=== PATIENT | male | born 1955 | race Two or more races ===

== ENCOUNTER 2020-03-13 13:28 | Emergency (ER) | payer MEDICAID ==
[~2020-03-13] VITALS: Ht 157.5 cm; Wt 50.0 kg
[~2020-03-13 13:28] MED LIST: ACET325T53 PO; AZIT500T9 PO; CALC-157 PO; CHOL100010 PO; DIAZ1KIT2 RC; DOCU50CA4 PO; INSU100I25 SQ; LAMO200T10 PO; LAMO25TA62 PO; LANTUS SUBCUT; LEVE750T6 PO; MAGN-64 PO; MAGN800O PO; MIRT15TA8 PO; MULT-1085 PO; ONDA4TAB12 PO; PRAV20TA4 PO; SITA100T15 PO; SODI650T29 PO; SYN0.025T PO; TOP100T PO; TRAZ-251 PO
[2020-03-13] MEDS ORDERED: normal saline 1000ml 1,000 ML IV ONE (13:45)
[2020-03-13 14:06] LABS: BASOPHILS % (AUTO) 0.7 % (0-1); EOSINOPHILS # (AUTO) 0.2 X10'3 (0-0.9); HEMATOCRIT 37.4 % (42.0-52.0); HEMOGLOBIN 13.1 g/dl (14.0-17.9); LYMPHOCYTES # (AUTO) 0.9 X10'3 (1.1-4.8); LYMPHOCYTES % (AUTO) 23.3 % (21-51); MEAN CORPUSCULAR HEMOGLOBIN 32.8 PG (27.0-31.0); MEAN CORPUSCULAR VOLUME 93.7 FL (78-98); MONOCYTES # (AUTO) 0.3 X10'3 (0-0.9); MONOCYTES % (AUTO) 6.5 % (2-12); NEUTROPHILS # (AUTO) 2.6 X10'3 (1.8-7.7); NEUTROPHILS % (AUTO) 64.5 % (42-75); PLATELET COUNT 161 X10'3 (140-440); RED BLOOD COUNT 3.99 X10'6 (4.70-6.10); RED CELL DISTRIBUTION WIDTH 13.5 % (11.5-14.5)
[2020-03-13 14:21] LABS: ALANINE AMINOTRANSFERASE 21 U/L (12-78); ALBUMIN 3.6 G/DL (3.4-5.0); ALBUMIN/GLOBULIN RATIO 1.2 (1.1-1.5); ALKALINE PHOSPHATASE 143 IU/L (46-116); ANION GAP 15 (8-16); ASPARTATE AMINO TRANSFERASE 14 U/L (10-37); BILIRUBIN,TOTAL 0.4 MG/DL (0.1-1.0); BLOOD UREA NITROGEN 40 MG/DL (7-18); BUN/CREATININE RATIO 20.7 (5.4-32.0); CALCIUM 8.4 MG/DL (8.5-10.1); CHLORIDE 103 MMOL/L (99-107); CREATININE 1.93 MG/DL (0.60-1.10); GLUCOSE 303 MG/DL (70-104); POTASSIUM 3.5 MMOL/L (3.5-5.1); SODIUM 136 MMOL/L (135-145); TOTAL CARBON DIOXIDE 18.1 MMOL/L (24-32); TOTAL PROTEIN 6.7 G/DL (6.4-8.2); eGFR 35 ML/MIN
[2020-03-13 14:54] LABS: CLARITY,URINE CLEAR (Clear); COLOR,URINE YELLOW (Yellow); GLUCOSE, URINE >=1000 mg/dl (Neg); KETONES,URINE NEGATIVE (Neg); LEUKOCYTE ESTERASE ,URINE TRACE (Neg); NITRITES, URINE NEGATIVE (Neg); OCCULT BLOOD,URINE TRACE-LYSED (Neg); PROTEIN,URINE NEGATIVE (Neg); UA COLLECTION TYPE URINAL; UROBILINOGEN,URINE 0.2 E.U/dL (0.2-1.0)
[2020-03-13 14:58] LABS: RBC,URINE 0-2 /HPF (0-2); WBC,URINE 0-4 /HPF (0-4)
[2020-03-13 14:59] LABS: BACTERIA,URINE NONE SEEN /HPF (Neg); MUCUS STRANDS FEW /LPF (Neg); SQUAMOUS EPITHELIAL CELL,UR NONE SEEN /LPF (FEW)
[2020-03-13 15:19] VITALS: BP 141/62
== END 2020-03-13 15:13 | disposition home or self-care (01) ==
LOC: ER 13:29
DX: E11.65 Type 2 diabetes mellitus with hyperglycemia (principal); E11.22 Type 2 diabetes mellitus with diabetic chronic kidney disease; N18.9 Chronic kidney disease, unspecified; E78.00 Pure hypercholesterolemia, unspecified; I12.9 Hypertensive chronic kidney disease with stage 1 through stage 4 chronic kidney disease, or unspecified chronic kidney disease; G89.29 Other chronic pain; F41.9 Anxiety disorder, unspecified; Z86.69 Personal history of other diseases of the nervous system and sense organs; Z98.890 Other specified postprocedural states; Z56.0 Unemployment, unspecified; Z88.5 Allergy status to narcotic agent; Z79.2 Long term (current) use of antibiotics; Z79.4 Long term (current) use of insulin; Z79.899 Other long term (current) drug therapy
CPT/HCPCS: 36415; 80053; 81001; 82948; 85025; 87088; 96360; 99284; J7030

== ENCOUNTER 2020-06-13 11:52 | Emergency (ER) | payer MEDICAID ==
[~2020-06-13] VITALS: Ht 157.5 cm; Wt 113.0 kg
[2020-06-13] MEDS ORDERED: normal saline 1000ML IV soln IVB ONE (12:05)
[2020-06-13 13:20] LABS: BASOPHILS % (AUTO) 0.3 % (0-1); EOSINOPHILS % (AUTO) 0.5 % (0-6); HEMATOCRIT 40.4 % (42.0-52.0); HEMOGLOBIN 13.6 g/dl (14.0-17.9); LYMPHOCYTES # (AUTO) 0.5 X10'3 (1.1-4.8); LYMPHOCYTES % (AUTO) 16.6 % (21-51); MEAN CORPUSCULAR HEMOGLOBIN 31.9 PG (27.0-31.0); MEAN CORPUSCULAR HGB CONC 33.6 g/dL (33.0-36.5); MEAN CORPUSCULAR VOLUME 94.9 FL (78-98); MEAN PLATELET VOLUME 8.3 FL (7.4-10.4); MONOCYTES # (AUTO) 0.5 X10'3 (0-0.9); MONOCYTES % (AUTO) 14.8 % (2-12); NEUTROPHILS # (AUTO) 2.1 X10'3 (1.8-7.7); NEUTROPHILS % (AUTO) 67.8 % (42-75); PLATELET COUNT 138 X10'3 (140-440); RED BLOOD COUNT 4.25 X10'6 (4.70-6.10); WHITE BLOOD COUNT 3.1 X10'3 (4.5-11.0)
[2020-06-13 13:30] VITALS: BP 155/65
[2020-06-13 13:33] LABS: ALANINE AMINOTRANSFERASE 27 U/L (12-78); ALBUMIN 4.3 G/DL (3.4-5.0); ALBUMIN/GLOBULIN RATIO 1.1 (1.1-1.5); ALKALINE PHOSPHATASE 115 IU/L (46-116); ANION GAP 13 (8-16); ASPARTATE AMINO TRANSFERASE 23 U/L (10-37); BILIRUBIN,TOTAL 0.4 MG/DL (0.1-1.0); BLOOD UREA NITROGEN 29 MG/DL (7-18); CALCIUM 9.4 MG/DL (8.5-10.1); CHLORIDE 101 MMOL/L (99-107); CREATININE 1.93 MG/DL (0.60-1.10); GLUCOSE 123 MG/DL (70-104); POTASSIUM 3.6 MMOL/L (3.5-5.1); SODIUM 133 MMOL/L (135-145); TOTAL CARBON DIOXIDE 19.4 MMOL/L (24-32); TOTAL PROTEIN 8.3 G/DL (6.4-8.2); eGFR 35 ML/MIN
[2020-06-13 13:45] LABS: C-REACTIVE PROTEIN 2.44 MG/DL (0.0-0.5); LACTATE DEHYDROGENASE 142 U/L (85-227)
[2020-06-13 13:46] LABS: FERRITIN 197 NG/ML (26-388)
== END 2020-06-13 15:23 | disposition home or self-care (01) ==
LOC: ER 11:53
DX: U07.1 COVID-19 (principal); R19.7 Diarrhea, unspecified; E78.00 Pure hypercholesterolemia, unspecified; I10 Essential (primary) hypertension; E11.9 Type 2 diabetes mellitus without complications; F41.9 Anxiety disorder, unspecified; G89.29 Other chronic pain; Z56.0 Unemployment, unspecified; Z88.5 Allergy status to narcotic agent; Z79.899 Other long term (current) drug therapy; Z79.84 Long term (current) use of oral hypoglycemic drugs
CPT/HCPCS: 36415; 71045; 80053; 82728; 83605; 83615; 83735; 84145; 85025; 85384; 86140; 87040; 87077; 87186; 87635; 93005; 99285; C9803; J7030; 96360

== ENCOUNTER 2020-06-16 09:15 | Emergency (ER) | payer MEDICAID ==
[~2020-06-16] VITALS: Ht 162.6 cm; Wt 50.0 kg
[2020-06-16 10:42] LABS: BASOPHILS % (AUTO) 0.1 % (0-1); EOSINOPHILS # (AUTO) 0.1 X10'3 (0-0.9); EOSINOPHILS % (AUTO) 1.2 % (0-6); HEMATOCRIT 36.2 % (42.0-52.0); HEMOGLOBIN 12.2 g/dl (14.0-17.9); LYMPHOCYTES # (AUTO) 0.4 X10'3 (1.1-4.8); LYMPHOCYTES % (AUTO) 9.9 % (21-51); MEAN CORPUSCULAR HGB CONC 33.8 g/dL (33.0-36.5); MEAN CORPUSCULAR VOLUME 94.6 FL (78-98); MONOCYTES # (AUTO) 0.5 X10'3 (0-0.9); MONOCYTES % (AUTO) 10.1 % (2-12); NEUTROPHILS # (AUTO) 3.5 X10'3 (1.8-7.7); NEUTROPHILS % (AUTO) 78.7 % (42-75); PLATELET COUNT 136 X10'3 (140-440); RED BLOOD COUNT 3.83 X10'6 (4.70-6.10); RED CELL DISTRIBUTION WIDTH 14.1 % (11.5-14.5); WHITE BLOOD COUNT 4.5 X10'3 (4.5-11.0)
[2020-06-16 10:59] LABS: ALANINE AMINOTRANSFERASE 25 U/L (12-78); ALBUMIN 3.3 G/DL (3.4-5.0); ALBUMIN/GLOBULIN RATIO 0.9 (1.1-1.5); ALKALINE PHOSPHATASE 83 IU/L (46-116); ANION GAP 11 (8-16); ASPARTATE AMINO TRANSFERASE 22 U/L (10-37); BILIRUBIN,TOTAL 0.3 MG/DL (0.1-1.0); BLOOD UREA NITROGEN 34 MG/DL (7-18); BUN/CREATININE RATIO 17.7 (5.4-32.0); CALCIUM 8.9 MG/DL (8.5-10.1); CHLORIDE 111 MMOL/L (99-107); CREATININE 1.92 MG/DL (0.60-1.10); GLUCOSE 189 MG/DL (70-104); SODIUM 142 MMOL/L (135-145); TOTAL CARBON DIOXIDE 19.8 MMOL/L (24-32); eGFR 36 ML/MIN
[2020-06-16 11:12] LABS: C-REACTIVE PROTEIN 5.17 MG/DL (0.0-0.5); FERRITIN 229 NG/ML (26-388); LACTATE DEHYDROGENASE 135 U/L (85-227); MAGNESIUM 1.8 MG/DL (1.5-2.4)
[2020-06-16 12:14] VITALS: BP 130/70
== END 2020-06-16 13:42 | disposition home or self-care (01) ==
LOC: ER 09:15
DX: U07.1 COVID-19 (principal); R19.7 Diarrhea, unspecified; E78.00 Pure hypercholesterolemia, unspecified; I10 Essential (primary) hypertension; E11.9 Type 2 diabetes mellitus without complications; G89.29 Other chronic pain; F41.9 Anxiety disorder, unspecified; Z86.69 Personal history of other diseases of the nervous system and sense organs; Z56.0 Unemployment, unspecified; Z98.890 Other specified postprocedural states; Z88.5 Allergy status to narcotic agent; Z79.4 Long term (current) use of insulin; Z79.899 Other long term (current) drug therapy
CPT/HCPCS: 36415; 71045; 76937; 80053; 82728; 83605; 83615; 83735; 84145; 85025; 85384; 86140; 87040; 93005; 99285

== ENCOUNTER 2021-01-31 11:15 | Emergency (ER) | payer MEDICAID ==
[~2021-01-31] VITALS: Ht 162.6 cm; Wt 50.0 kg
[~2021-01-31 11:15] MED LIST changes: +MIRT-87 PO; -MIRT15TA8 PO
[2021-01-31 11:27] VITALS: BP 136/82
[2021-01-31] MEDS ORDERED: LIDOcaine 1% W/epiNEPHrine 1:100,000 20ml vial SQ ONE (11:30)
== END 2021-01-31 16:13 | disposition home or self-care (01) ==
LOC: ER 11:16
DX: S01.81XA Laceration without foreign body of other part of head, initial encounter (principal); E78.00 Pure hypercholesterolemia, unspecified; I10 Essential (primary) hypertension; E11.9 Type 2 diabetes mellitus without complications; G89.29 Other chronic pain; F41.9 Anxiety disorder, unspecified; Z86.69 Personal history of other diseases of the nervous system and sense organs; Z98.890 Other specified postprocedural states; Z56.0 Unemployment, unspecified; Z88.5 Allergy status to narcotic agent; Z79.2 Long term (current) use of antibiotics; Z79.899 Other long term (current) drug therapy; W19.XXXA Unspecified fall, initial encounter; Y93.89 Activity, other specified; Y92.89 Other specified places as the place of occurrence of the external cause; Y99.8 Other external cause status
CPT/HCPCS: 12011; 70450; 82948; 99284

== ENCOUNTER 2021-09-01 11:21 | Emergency (ER) | payer MEDICAID ==
[~2021-09-01] VITALS: Ht 157.5 cm; Wt 46.8 kg
[2021-09-01 14:26] VITALS: BP 118/68
== END 2021-09-01 14:28 | disposition home or self-care (01) ==
LOC: ER 11:21
DX: S09.90XA Unspecified injury of head, initial encounter (principal); S00.01XA Abrasion of scalp, initial encounter; R56.9 Unspecified convulsions; E78.00 Pure hypercholesterolemia, unspecified; I10 Essential (primary) hypertension; E11.9 Type 2 diabetes mellitus without complications; G89.29 Other chronic pain; F41.9 Anxiety disorder, unspecified; Z86.69 Personal history of other diseases of the nervous system and sense organs; Z98.890 Other specified postprocedural states; Z56.0 Unemployment, unspecified; Z88.5 Allergy status to narcotic agent; Z79.2 Long term (current) use of antibiotics; Z79.4 Long term (current) use of insulin; Z79.899 Other long term (current) drug therapy; X58.XXXA Exposure to other specified factors, initial encounter; Y93.89 Activity, other specified; Y92.89 Other specified places as the place of occurrence of the external cause; Y99.8 Other external cause status
CPT/HCPCS: 70450; 99284

== ENCOUNTER 2022-01-13 09:28 | Emergency (ER) | payer MEDICAID ==
[~2022-01-13] VITALS: Ht 157.5 cm; Wt 51.4 kg
[2022-01-13 10:16] LABS: BASOPHILS % (AUTO) 0.3 % (0-1); EOSINOPHILS # (AUTO) 0.1 X10'3 (0-0.9); EOSINOPHILS % (AUTO) 0.9 % (0-6); LYMPHOCYTES # (AUTO) 0.6 X10'3 (1.1-4.8); LYMPHOCYTES % (AUTO) 9.6 % (21-51); MEAN CORPUSCULAR HEMOGLOBIN 32.1 PG (27.0-31.0); MEAN CORPUSCULAR HGB CONC 33.4 g/dL (33.0-36.5); MEAN CORPUSCULAR VOLUME 95.9 FL (78-98); MEAN PLATELET VOLUME 8.1 FL (7.4-10.4); MONOCYTES # (AUTO) 0.3 X10'3 (0-0.9); MONOCYTES % (AUTO) 4.8 % (2-12); NEUTROPHILS # (AUTO) 4.9 X10'3 (1.8-7.7); NEUTROPHILS % (AUTO) 84.4 % (42-75); PLATELET COUNT 164 X10'3 (140-440); RED BLOOD COUNT 4.38 X10'6 (4.70-6.10); RED CELL DISTRIBUTION WIDTH 14.8 % (11.5-14.5); WHITE BLOOD COUNT 5.8 X10'3 (4.5-11.0)
[2022-01-13 10:32] LABS: ALANINE AMINOTRANSFERASE 23 U/L (12-78); ALBUMIN 4.4 G/DL (3.4-5.0); ALBUMIN/GLOBULIN RATIO 1.3 (1.1-1.5); ALKALINE PHOSPHATASE 116 IU/L (46-116); ANION GAP 11 (8-16); ASPARTATE AMINO TRANSFERASE 22 U/L (10-37); BILIRUBIN,TOTAL 0.4 MG/DL (0.1-1.0); BLOOD UREA NITROGEN 41 MG/DL (7-18); BUN/CREATININE RATIO 21.4 (5.4-32.0); CALCIUM 9.1 MG/DL (8.5-10.1); CHLORIDE 107 MMOL/L (99-107); CREATININE 1.92 MG/DL (0.60-1.10); GLUCOSE 164 MG/DL (70-104); LIPASE 615 U/L (73-393); SODIUM 141 MMOL/L (135-145); TOTAL CARBON DIOXIDE 23.4 MMOL/L (24-32); TOTAL PROTEIN 7.9 G/DL (6.4-8.2); eGFR 35 ML/MIN
[2022-01-13] MEDS ORDERED: ondansetron/PF 4mg/2ml inj IV ONE (11:40)
[2022-01-13] MEDS ORDERED: ringers solution, lacted 1,000 ML IV ONE (11:45)
[2022-01-13 12:57] LABS: CLARITY,URINE CLEAR (Clear); COLOR,URINE YELLOW (Yellow); GLUCOSE, URINE NEGATIVE (Neg); KETONES,URINE NEGATIVE (Neg); LEUKOCYTE ESTERASE ,URINE NEGATIVE (Neg); NITRITES, URINE NEGATIVE (Neg); OCCULT BLOOD,URINE NEGATIVE (Neg); PROTEIN,URINE NEGATIVE (Neg); UROBILINOGEN,URINE 0.2 E.U/dL (0.2-1.0)
[2022-01-13 13:00] LABS: UA COLLECTION TYPE URINAL
[2022-01-13 14:19] VITALS: BP 125/59
== END 2022-01-13 14:21 | disposition home or self-care (01) ==
LOC: ER 09:29
DX: K85.90 Acute pancreatitis without necrosis or infection, unspecified (principal); E78.00 Pure hypercholesterolemia, unspecified; I10 Essential (primary) hypertension; E11.9 Type 2 diabetes mellitus without complications; E03.9 Hypothyroidism, unspecified; G89.29 Other chronic pain; F41.9 Anxiety disorder, unspecified; Z56.0 Unemployment, unspecified; Z86.69 Personal history of other diseases of the nervous system and sense organs; Z88.5 Allergy status to narcotic agent; Z79.899 Other long term (current) drug therapy; Z79.4 Long term (current) use of insulin
CPT/HCPCS: 36415; 80053; 81003; 82948; 83605; 83690; 85025; 96361; 96374; 99283; J2405; J7120

== ENCOUNTER 2022-04-28 18:27 | Emergency (ER) | payer MEDICAID ==
[~2022-04-28] VITALS: Ht 162.6 cm; Wt 42.8 kg
[2022-04-28 18:54] VITALS: BP 137/65
[2022-04-28 19:31] LABS: EOSINOPHILS # (AUTO) 0.2 X10'3 (0-0.9); NEUTROPHILS # (AUTO) 5.2 X10'3 (1.8-7.7)
[2022-04-28 19:33] LABS: BASOPHILS % (AUTO) 0.4 % (0-1); EOSINOPHILS % (AUTO) 2.4 % (0-6); HEMOGLOBIN 15.1 g/dl (14.0-17.9); LYMPHOCYTES # (AUTO) 0.6 X10'3 (1.1-4.8); LYMPHOCYTES % (AUTO) 8.5 % (21-51); MEAN CORPUSCULAR HGB CONC 33.5 g/dL (33.0-36.5); MEAN CORPUSCULAR VOLUME 95.6 FL (78-98); MEAN PLATELET VOLUME 8.8 FL (7.4-10.4); MONOCYTES # (AUTO) 0.6 X10'3 (0-0.9); MONOCYTES % (AUTO) 8.9 % (2-12); NEUTROPHILS % (AUTO) 79.8 % (42-75); PLATELET COUNT 143 X10'3 (140-440); RED BLOOD COUNT 4.71 X10'6 (4.70-6.10); RED CELL DISTRIBUTION WIDTH 14.2 % (11.5-14.5); WHITE BLOOD COUNT 6.5 X10'3 (4.5-11.0)
[2022-04-28 19:46] LABS: ALANINE AMINOTRANSFERASE 33 U/L (12-78); ALBUMIN 4.1 G/DL (3.4-5.0); ALBUMIN/GLOBULIN RATIO 1.1 (1.1-1.5); ALKALINE PHOSPHATASE 143 IU/L (46-116); ANION GAP 10 (8-16); ASPARTATE AMINO TRANSFERASE 20 U/L (10-37); BILIRUBIN,TOTAL 0.6 MG/DL (0.1-1.0); BLOOD UREA NITROGEN 59 MG/DL (7-18); CALCIUM 9.5 MG/DL (8.5-10.1); CHLORIDE 99 MMOL/L (99-107); CREATININE 1.79 MG/DL (0.60-1.10); GLUCOSE 276 MG/DL (70-104); LIPASE 409 U/L (73-393); POTASSIUM 4.2 MMOL/L (3.5-5.1); SODIUM 131 MMOL/L (135-145); TOTAL CARBON DIOXIDE 22.2 MMOL/L (24-32); TOTAL PROTEIN 7.7 G/DL (6.4-8.2); eGFR 38 ML/MIN
[2022-04-28] MEDS ORDERED: normal saline 1000ML IV soln IVB ONE (23:35)
[2022-04-28 23:45] LABS: MAGNESIUM 2.1 MG/DL (1.5-2.4)
--- NOTE | 2022-04-29 00:32 | NUR ---
iv dc'd pt being discharged dressing applied
== END 2022-04-29 00:33 | disposition home or self-care (01) ==
LOC: ER 18:28
DX: E86.0 Dehydration (principal); E11.22 Type 2 diabetes mellitus with diabetic chronic kidney disease; I12.9 Hypertensive chronic kidney disease with stage 1 through stage 4 chronic kidney disease, or unspecified chronic kidney disease; E03.9 Hypothyroidism, unspecified; G89.29 Other chronic pain; F41.9 Anxiety disorder, unspecified; Z56.0 Unemployment, unspecified; Z88.5 Allergy status to narcotic agent; Z79.899 Other long term (current) drug therapy; Z79.1 Long term (current) use of non-steroidal anti-inflammatories (NSAID); Z79.2 Long term (current) use of antibiotics
CPT/HCPCS: 36415; 80053; 83690; 83735; 85025; 96360; 99283; J7030

== ENCOUNTER 2022-08-17 11:02 | Emergency (ER) | payer MEDICAID ==
[~2022-08-17] VITALS: Ht 157.5 cm; Wt 50.0 kg
[2022-08-17 11:18] VITALS: BP 146/70
[2022-08-17 13:23] LABS: CLARITY,URINE CLEAR (Clear); COLOR,URINE YELLOW (Yellow); GLUCOSE, URINE >=1000 mg/dl (Neg); KETONES,URINE NEGATIVE (Neg); LEUKOCYTE ESTERASE ,URINE NEGATIVE (Neg); NITRITES, URINE NEGATIVE (Neg); OCCULT BLOOD,URINE NEGATIVE (Neg); PROTEIN,URINE TRACE mg/dl (Neg); UROBILINOGEN,URINE 0.2 E.U/dL (0.2-1.0)
[2022-08-17 13:37] LABS: UA COLLECTION TYPE NON-SPECIFIED
[2022-08-17 13:40] LABS: BACTERIA,URINE NONE SEEN /HPF (Neg); MUCUS STRANDS NONE SEEN /LPF (Neg); SQUAMOUS EPITHELIAL CELL,UR NONE SEEN /LPF (FEW); WBC,URINE 0-4 /HPF (0-4)
[2022-08-17 13:41] LABS: BASOPHILS % (AUTO) 0.5 % (0-1); EOSINOPHILS # (AUTO) 0.1 X10'3 (0-0.9); EOSINOPHILS % (AUTO) 2.3 % (0-6); HEMATOCRIT 41.5 % (42.0-52.0); HEMOGLOBIN 13.8 g/dl (14.0-17.9); LYMPHOCYTES # (AUTO) 0.6 X10'3 (1.1-4.8); LYMPHOCYTES % (AUTO) 21.3 % (21-51); MEAN CORPUSCULAR HEMOGLOBIN 31.6 PG (27.0-31.0); MEAN CORPUSCULAR HGB CONC 33.3 g/dL (33.0-36.5); MEAN CORPUSCULAR VOLUME 94.9 FL (78-98); MEAN PLATELET VOLUME 8.4 FL (7.4-10.4); MONOCYTES # (AUTO) 0.2 X10'3 (0-0.9); MONOCYTES % (AUTO) 6.9 % (2-12); PLATELET COUNT 137 X10'3 (140-440); RED BLOOD COUNT 4.37 X10'6 (4.70-6.10); RED CELL DISTRIBUTION WIDTH 14.9 % (11.5-14.5); WHITE BLOOD COUNT 2.9 X10'3 (4.5-11.0)
[2022-08-17 13:41] LABS: RBC,URINE 0-2 /HPF (0-2)
[2022-08-17 14:05] LABS: ALANINE AMINOTRANSFERASE 27 U/L (12-78); ALBUMIN 4.1 G/DL (3.4-5.0); ALBUMIN/GLOBULIN RATIO 1.4 (1.1-1.5); ALKALINE PHOSPHATASE 91 IU/L (46-116); ANION GAP 10 (8-16); ASPARTATE AMINO TRANSFERASE 24 U/L (10-37); BILIRUBIN,TOTAL 0.5 MG/DL (0.1-1.0); BLOOD UREA NITROGEN 43 MG/DL (7-18); BUN/CREATININE RATIO 24.6 (5.4-32.0); CALCIUM 9.2 MG/DL (8.5-10.1); CHLORIDE 106 MMOL/L (99-107); CREATININE 1.75 MG/DL (0.60-1.10); GLUCOSE 248 MG/DL (70-104); LIPASE 183 U/L (73-393); POTASSIUM 4.1 MMOL/L (3.5-5.1); SODIUM 137 MMOL/L (135-145); TOTAL CARBON DIOXIDE 20.8 MMOL/L (24-32); eGFR 39 ML/MIN
[2022-08-17 14:09] LABS: PLATELET ESTIMATE DECREASED; TOTAL CELLS COUNTED 100
== END 2022-08-17 14:39 | disposition home or self-care (01) ==
LOC: ER 11:02
DX: E16.2 Hypoglycemia, unspecified (principal); R62.50 Unspecified lack of expected normal physiological development in childhood; I12.9 Hypertensive chronic kidney disease with stage 1 through stage 4 chronic kidney disease, or unspecified chronic kidney disease; E11.22 Type 2 diabetes mellitus with diabetic chronic kidney disease; N18.9 Chronic kidney disease, unspecified; G89.29 Other chronic pain; F41.9 Anxiety disorder, unspecified; E78.00 Pure hypercholesterolemia, unspecified; E03.9 Hypothyroidism, unspecified; Z98.890 Other specified postprocedural states; Z56.0 Unemployment, unspecified; Z88.5 Allergy status to narcotic agent; Z79.4 Long term (current) use of insulin; Z79.899 Other long term (current) drug therapy
CPT/HCPCS: 80053; 81001; 82948; 83690; 85007; 85025; 99283

== ENCOUNTER 2022-08-18 08:54 | Emergency (ER) | payer MEDICAID ==
[~2022-08-18] VITALS: Ht 157.5 cm; Wt 51.0 kg
[2022-08-18 10:27] LABS: CLARITY,URINE CLEAR (Clear); COLOR,URINE YELLOW (Yellow); GLUCOSE, URINE 500 mg/dl (Neg); KETONES,URINE NEGATIVE (Neg); LEUKOCYTE ESTERASE ,URINE NEGATIVE (Neg); NITRITES, URINE NEGATIVE (Neg); OCCULT BLOOD,URINE NEGATIVE (Neg); PROTEIN,URINE NEGATIVE (Neg); UROBILINOGEN,URINE 0.2 E.U/dL (0.2-1.0)
[2022-08-18 10:41] LABS: UA COLLECTION TYPE VOIDED
[2022-08-18 11:25] LABS: BASOPHILS % (AUTO) 0.7 % (0-1); EOSINOPHILS # (AUTO) 0.1 X10'3 (0-0.9); EOSINOPHILS % (AUTO) 4.7 % (0-6); HEMATOCRIT 40.4 % (42.0-52.0); HEMOGLOBIN 13.6 g/dl (14.0-17.9); MEAN CORPUSCULAR HEMOGLOBIN 31.8 PG (27.0-31.0); MEAN CORPUSCULAR HGB CONC 33.6 g/dL (33.0-36.5); MEAN CORPUSCULAR VOLUME 94.5 FL (78-98); MEAN PLATELET VOLUME 8.3 FL (7.4-10.4); MONOCYTES # (AUTO) 0.3 X10'3 (0-0.9); MONOCYTES % (AUTO) 10.6 % (2-12); NEUTROPHILS # (AUTO) 1.5 X10'3 (1.8-7.7); PLATELET COUNT 127 X10'3 (140-440); RED BLOOD COUNT 4.27 X10'6 (4.70-6.10); RED CELL DISTRIBUTION WIDTH 14.8 % (11.5-14.5); WHITE BLOOD COUNT 2.9 X10'3 (4.5-11.0)
[2022-08-18 11:40] LABS: ALANINE AMINOTRANSFERASE 27 U/L (12-78); ALBUMIN 3.9 G/DL (3.4-5.0); ALBUMIN/GLOBULIN RATIO 1.3 (1.1-1.5); ALKALINE PHOSPHATASE 79 IU/L (46-116); ANION GAP 9 (8-16); ASPARTATE AMINO TRANSFERASE 28 U/L (10-37); BILIRUBIN,TOTAL 0.5 MG/DL (0.1-1.0); BLOOD UREA NITROGEN 43 MG/DL (7-18); BUN/CREATININE RATIO 23.6 (5.4-32.0); CALCIUM 9.2 MG/DL (8.5-10.1); CHLORIDE 106 MMOL/L (99-107); CREATININE 1.82 MG/DL (0.60-1.10); GLUCOSE 100 MG/DL (70-104); POTASSIUM 3.7 MMOL/L (3.5-5.1); SODIUM 138 MMOL/L (135-145); TOTAL CARBON DIOXIDE 23.5 MMOL/L (24-32); TOTAL PROTEIN 6.8 G/DL (6.4-8.2); eGFR 38 ML/MIN
[2022-08-18 13:34] LABS: PLATELET ESTIMATE DECREASED; TOTAL CELLS COUNTED 100
[2022-08-18 13:36] VITALS: BP 108/58
== END 2022-08-18 14:17 | disposition home or self-care (01) ==
LOC: ER 08:55
DX: R00.1 Bradycardia, unspecified (principal); G89.29 Other chronic pain; E78.00 Pure hypercholesterolemia, unspecified; I10 Essential (primary) hypertension; E11.9 Type 2 diabetes mellitus without complications; E03.9 Hypothyroidism, unspecified; Z88.5 Allergy status to narcotic agent; Z56.0 Unemployment, unspecified
CPT/HCPCS: 80053; 81003; 85007; 85025; 93005; 99284

== ENCOUNTER 2023-01-23 11:25 | Emergency (ER) | payer MEDICAID ==
[~2023-01-23] VITALS: Ht 157.5 cm; Wt 43.1 kg
[~2023-01-23 11:25] MED LIST changes: -INSU100I25 SQ; +INSU100I27 SQ
[2023-01-23 12:12] LABS: BASOPHILS % (AUTO) 0.7 % (0-1); EOSINOPHILS # (AUTO) 0.1 X10'3 (0-0.9); EOSINOPHILS % (AUTO) 1.8 % (0-6); HEMATOCRIT 41.9 % (42.0-52.0); HEMOGLOBIN 14.3 g/dl (14.0-17.9); LYMPHOCYTES # (AUTO) 1.1 X10'3 (1.1-4.8); LYMPHOCYTES % (AUTO) 28.3 % (21-51); MEAN CORPUSCULAR HEMOGLOBIN 33.2 PG (27.0-31.0); MEAN CORPUSCULAR HGB CONC 34.3 g/dL (33.0-36.5); MEAN CORPUSCULAR VOLUME 96.8 FL (78-98); MEAN PLATELET VOLUME 8.2 FL (7.4-10.4); MONOCYTES # (AUTO) 0.3 X10'3 (0-0.9); MONOCYTES % (AUTO) 7.3 % (2-12); NEUTROPHILS # (AUTO) 2.3 X10'3 (1.8-7.7); NEUTROPHILS % (AUTO) 61.9 % (42-75); PLATELET COUNT 192 X10'3 (140-440); RED BLOOD COUNT 4.33 X10'6 (4.70-6.10); RED CELL DISTRIBUTION WIDTH 13.8 % (11.5-14.5); WHITE BLOOD COUNT 3.8 X10'3 (4.5-11.0)
[2023-01-23 12:26] LABS: ALANINE AMINOTRANSFERASE 27 U/L (12-78); ALBUMIN 4.2 G/DL (3.4-5.0); ALBUMIN/GLOBULIN RATIO 1.4 (1.1-1.5); ALKALINE PHOSPHATASE 82 IU/L (46-116); ANION GAP 18 (8-16); ASPARTATE AMINO TRANSFERASE 19 U/L (10-37); BILIRUBIN,TOTAL 0.7 MG/DL (0.1-1.0); BLOOD UREA NITROGEN 37 MG/DL (7-18); BUN/CREATININE RATIO 18.8 (10.0-20.0); CALCIUM 9.6 MG/DL (8.5-10.1); CHLORIDE 101 MMOL/L (99-107); CREATININE 1.97 MG/DL (0.60-1.10); GLUCOSE 151 MG/DL (70-104); POTASSIUM 3.8 MMOL/L (3.5-5.1); SODIUM 137 MMOL/L (135-145); TOTAL PROTEIN 7.3 G/DL (6.4-8.2); eGFR 34 ML/MIN
[2023-01-23 13:07] VITALS: BP 132/67
[2023-01-23] MEDS ORDERED: normal saline 1000ML IV soln IVB ONE (13:15)
[2023-01-23] MEDS ORDERED: ondansetron/PF 4mg/2ml inj IV ONE (13:15)
[2023-01-23] MEDS ORDERED: famotidine/PF 10 mg/ml inj IV ONE (13:15)
[2023-01-23] MEDS ORDERED: ONDA4TAB12 PO ×3 (13:18→14:47)
== END 2023-01-23 15:09 | disposition home or self-care (01) ==
LOC: ER 11:25
DX: B34.9 Viral infection, unspecified (principal); E11.22 Type 2 diabetes mellitus with diabetic chronic kidney disease; N18.9 Chronic kidney disease, unspecified; E86.0 Dehydration; E78.00 Pure hypercholesterolemia, unspecified; I10 Essential (primary) hypertension; E11.9 Type 2 diabetes mellitus without complications; E03.9 Hypothyroidism, unspecified; F32.A Depression, unspecified; F41.9 Anxiety disorder, unspecified; Z59.00 Homelessness unspecified; Z88.8 Allergy status to other drugs, medicaments and biological substances; Z88.5 Allergy status to narcotic agent; Z79.899 Other long term (current) drug therapy
CPT/HCPCS: 36415; 71045; 80053; 82948; 83880; 84484; 85025; 93005; 96361; 96374; 96375; 99285; J2405; J3490; J7030

== ENCOUNTER 2023-01-24 11:21 | Emergency (ER) | payer MEDICAID ==
[~2023-01-24] VITALS: Ht 165.1 cm; Wt 42.7 kg
[2023-01-24 11:31] VITALS: BP 146/68
[2023-01-24 12:50] LABS: BASOPHILS % (AUTO) 0.6 % (0-1); HEMATOCRIT 41.7 % (42.0-52.0); HEMOGLOBIN 14.5 g/dl (14.0-17.9); LYMPHOCYTES # (AUTO) 0.8 X10'3 (1.1-4.8); LYMPHOCYTES % (AUTO) 22.9 % (21-51); MEAN CORPUSCULAR HEMOGLOBIN 33.4 PG (27.0-31.0); MEAN CORPUSCULAR HGB CONC 34.7 g/dL (33.0-36.5); MEAN CORPUSCULAR VOLUME 96.1 FL (78-98); MEAN PLATELET VOLUME 8.2 FL (7.4-10.4); MONOCYTES # (AUTO) 0.2 X10'3 (0-0.9); MONOCYTES % (AUTO) 6.5 % (2-12); NEUTROPHILS # (AUTO) 2.3 X10'3 (1.8-7.7); PLATELET COUNT 167 X10'3 (140-440); RED BLOOD COUNT 4.33 X10'6 (4.70-6.10); WHITE BLOOD COUNT 3.3 X10'3 (4.5-11.0)
[2023-01-24 13:09] LABS: ALANINE AMINOTRANSFERASE 24 U/L (12-78); ALBUMIN 4.3 G/DL (3.4-5.0); ALBUMIN/GLOBULIN RATIO 1.3 (1.1-1.5); ALKALINE PHOSPHATASE 68 IU/L (46-116); ANION GAP 12 (8-16); ASPARTATE AMINO TRANSFERASE 18 U/L (10-37); BILIRUBIN,TOTAL 0.6 MG/DL (0.1-1.0); BLOOD UREA NITROGEN 35 MG/DL (7-18); BUN/CREATININE RATIO 18.4 (10.0-20.0); CALCIUM 9.5 MG/DL (8.5-10.1); CHLORIDE 108 MMOL/L (99-107); GLUCOSE 140 MG/DL (70-104); LIPASE 154 U/L (73-393); SODIUM 140 MMOL/L (135-145); TOTAL CARBON DIOXIDE 19.6 MMOL/L (24-32); TOTAL PROTEIN 7.5 G/DL (6.4-8.2); eGFR 36 ML/MIN
[2023-01-24 14:02] LABS: CLARITY,URINE CLOUDY (Clear); COLOR,URINE YELLOW (Yellow); GLUCOSE, URINE >=1000 mg/dl (Neg); KETONES,URINE 15 mg/dl (Neg); LEUKOCYTE ESTERASE ,URINE NEGATIVE (Neg); NITRITES, URINE NEGATIVE (Neg); OCCULT BLOOD,URINE NEGATIVE (Neg); PH,URINE 7.5 (4.8-8.0); PROTEIN,URINE 30 mg/dl (Neg); UROBILINOGEN,URINE 0.2 E.U/dL (0.2-1.0)
[2023-01-24 14:11] LABS: UA COLLECTION TYPE CLN CATCH MIDSTREAM
[2023-01-24 14:35] LABS: SQUAMOUS EPITHELIAL CELL,UR FEW /LPF (FEW)
[2023-01-24 14:36] LABS: BACTERIA,URINE FEW /HPF (Neg); RBC,URINE 0-2 /HPF (0-2); WBC,URINE 0-4 /HPF (0-4)
[2023-01-24 14:37] LABS: AMORPHOUS PHOSPHATES 2+
== END 2023-01-24 14:33 | disposition home or self-care (01) ==
LOC: ER 11:22
DX: R11.2 Nausea with vomiting, unspecified (principal); B34.9 Viral infection, unspecified; R56.9 Unspecified convulsions; E78.00 Pure hypercholesterolemia, unspecified; I10 Essential (primary) hypertension; E11.9 Type 2 diabetes mellitus without complications; E03.9 Hypothyroidism, unspecified; F41.9 Anxiety disorder, unspecified; G89.29 Other chronic pain; Z79.899 Other long term (current) drug therapy; Z88.5 Allergy status to narcotic agent; Z79.1 Long term (current) use of non-steroidal anti-inflammatories (NSAID); Z79.2 Long term (current) use of antibiotics
CPT/HCPCS: 36415; 80053; 81001; 83690; 85025; 99283

== ENCOUNTER 2023-03-23 08:09 | Emergency (ER) | payer MEDICAID ==
[~2023-03-23] VITALS: Ht 162.6 cm; Wt 57.0 kg
[2023-03-23] MEDS ORDERED: LORazepam 2 mg/ml vial IV ONE (08:15)
[2023-03-23] MEDS ORDERED: normal saline 1000ML IV soln IVB ONE (08:15)
[2023-03-23 08:17] VITALS: TEMP 98.4
--- NOTE | 2023-03-23 09:01 | NUR ---
Caregiver at bedside at this time
[2023-03-23 09:07] LABS: BASOPHILS % (AUTO) 0.6 % (0-1); EOSINOPHILS # (AUTO) 0.1 X10'3 (0-0.9); EOSINOPHILS % (AUTO) 2.9 % (0-6); HEMATOCRIT 36.4 % (42.0-52.0); HEMOGLOBIN 12.3 g/dl (14.0-17.9); LYMPHOCYTES # (AUTO) 0.3 X10'3 (1.1-4.8); LYMPHOCYTES % (AUTO) 9.5 % (21-51); MEAN CORPUSCULAR HEMOGLOBIN 33.8 PG (27.0-31.0); MEAN CORPUSCULAR HGB CONC 33.8 g/dL (33.0-36.5); MEAN CORPUSCULAR VOLUME 99.9 FL (78-98); MEAN PLATELET VOLUME 8.4 FL (7.4-10.4); MONOCYTES # (AUTO) 0.2 X10'3 (0-0.9); MONOCYTES % (AUTO) 6.5 % (2-12); NEUTROPHILS # (AUTO) 2.6 X10'3 (1.8-7.7); NEUTROPHILS % (AUTO) 80.5 % (42-75); PLATELET COUNT 141 X10'3 (140-440); RED BLOOD COUNT 3.64 X10'6 (4.70-6.10); RED CELL DISTRIBUTION WIDTH 15.6 % (11.5-14.5); WHITE BLOOD COUNT 3.2 X10'3 (4.5-11.0)
[2023-03-23 09:34] LABS: ALANINE AMINOTRANSFERASE 40 U/L (12-78); ALBUMIN 3.6 G/DL (3.4-5.0); ALBUMIN/GLOBULIN RATIO 1.2 (1.1-1.5); ALKALINE PHOSPHATASE 104 IU/L (46-116); ANION GAP 10 (8-16); ASPARTATE AMINO TRANSFERASE 32 U/L (10-37); BILIRUBIN,TOTAL 0.4 MG/DL (0.1-1.0); BLOOD UREA NITROGEN 46 MG/DL (7-18); BUN/CREATININE RATIO 27.2 (10.0-20.0); CALCIUM 8.8 MG/DL (8.5-10.1); CHLORIDE 102 MMOL/L (99-107); CREATININE 1.69 MG/DL (0.60-1.10); GLUCOSE 220 MG/DL (70-104); POTASSIUM 3.7 MMOL/L (3.5-5.1); SODIUM 135 MMOL/L (135-145); TOTAL CARBON DIOXIDE 23.2 MMOL/L (24-32); TOTAL PROTEIN 6.6 G/DL (6.4-8.2); eCRCL 35 ML/MIN; eGFR 41 ML/MIN
[2023-03-23 09:49] LABS: PHENYTOIN (DILANTIN) < 0.5 UG/ML (10.0-20.0)
[2023-03-23 10:49] VITALS: BP 141/82; PULSE 65; RESP 18; O2SAT 99
== END 2023-03-23 10:53 | disposition home or self-care (01) ==
LOC: ER 08:09
DX: R56.9 Unspecified convulsions (principal); E78.00 Pure hypercholesterolemia, unspecified; I10 Essential (primary) hypertension; E03.9 Hypothyroidism, unspecified; G89.29 Other chronic pain; F41.9 Anxiety disorder, unspecified; Z59.00 Homelessness unspecified; W19.XXXA Unspecified fall, initial encounter; Y93.89 Activity, other specified; Y92.89 Other specified places as the place of occurrence of the external cause; Y99.8 Other external cause status
CPT/HCPCS: 36415; 70450; 72125; 80053; 80185; 85025; 96361; 96374; 99285; J2060; J7030

== ENCOUNTER 2023-06-13 06:48 | Emergency (ER) | payer MEDICAID ==
[~2023-06-13] VITALS: Ht 157.5 cm; Wt 48.9 kg
[2023-06-13 08:43] LABS: BASOPHILS % (AUTO) 0.7 % (0-1); EOSINOPHILS # (AUTO) 0.1 X10'3 (0-0.9); EOSINOPHILS % (AUTO) 3.7 % (0-6); HEMATOCRIT 41.8 % (42.0-52.0); HEMOGLOBIN 14.2 g/dl (14.0-17.9); LYMPHOCYTES # (AUTO) 0.6 X10'3 (1.1-4.8); LYMPHOCYTES % (AUTO) 16.3 % (21-51); MEAN CORPUSCULAR HEMOGLOBIN 33.6 PG (27.0-31.0); MEAN CORPUSCULAR VOLUME 98.8 FL (78-98); MEAN PLATELET VOLUME 8.9 FL (7.4-10.4); MONOCYTES # (AUTO) 0.4 X10'3 (0-0.9); MONOCYTES % (AUTO) 10.6 % (2-12); NEUTROPHILS # (AUTO) 2.5 X10'3 (1.8-7.7); NEUTROPHILS % (AUTO) 68.7 % (42-75); PLATELET COUNT 133 X10'3 (140-440); RED BLOOD COUNT 4.24 X10'6 (4.70-6.10); RED CELL DISTRIBUTION WIDTH 13.1 % (11.5-14.5); WHITE BLOOD COUNT 3.7 X10'3 (4.5-11.0)
[2023-06-13 09:03] LABS: ALANINE AMINOTRANSFERASE 26 U/L (12-78); ALBUMIN 4.4 G/DL (3.4-5.0); ALBUMIN/GLOBULIN RATIO 1.3 (1.1-1.5); ALKALINE PHOSPHATASE 163 IU/L (46-116); ANION GAP 7 (8-16); ASPARTATE AMINO TRANSFERASE 28 U/L (10-37); BILIRUBIN,TOTAL 0.3 MG/DL (0.1-1.0); BLOOD UREA NITROGEN 54 MG/DL (7-18); CALCIUM 9.4 MG/DL (8.5-10.1); CHLORIDE 101 MMOL/L (99-107); CREATININE 1.86 MG/DL (0.60-1.10); ETHANOL < 10 MG/DL (<10); GLUCOSE 99 MG/DL (70-104); MAGNESIUM 2.6 MG/DL (1.5-2.4); POTASSIUM 4.3 MMOL/L (3.5-5.1); SODIUM 132 MMOL/L (135-145); THYROID STIMULATING HORMONE 4.63 ulU/ml (0.34-4.50); TOTAL CARBON DIOXIDE 23.6 MMOL/L (24-32); TOTAL PROTEIN 7.9 G/DL (6.4-8.2); eCRCL 27 ML/MIN; eGFR 37 ML/MIN
[2023-06-13 09:29] LABS: URINE AMPHETAMINE SCREEN NEGATIVE (Neg); URINE BARBITUATE SCREEN NEGATIVE (Neg); URINE BENZODIAZEPINES SCREEN NEGATIVE (Neg); URINE CANNABINOID SCREEN NEGATIVE (Neg); URINE COCAINE SCREEN NEGATIVE (Neg); URINE METHADONE SCREEN NEGATIVE (Neg); URINE OPIATE SCREEN NEGATIVE (Neg); URINE PHENCYCLIDINE SCREEN NEGATIVE (Neg)
[2023-06-13 10:07] VITALS: BP 141/65; PULSE 52; RESP 16; TEMP 97.6; O2SAT 99
== END 2023-06-13 10:29 | disposition home or self-care (01) ==
LOC: ER 06:48
DX: R55 Syncope and collapse (principal); E78.00 Pure hypercholesterolemia, unspecified; E11.9 Type 2 diabetes mellitus without complications; E03.9 Hypothyroidism, unspecified; Z88.5 Allergy status to narcotic agent; Z88.8 Allergy status to other drugs, medicaments and biological substances; Z79.1 Long term (current) use of non-steroidal anti-inflammatories (NSAID); Z79.2 Long term (current) use of antibiotics
CPT/HCPCS: 36415; 70450; 71045; 72125; 80053; 80305; 80320; 83735; 84443; 84484; 85025; 93005; 99285

== ENCOUNTER 2023-09-26 13:46 | Inpatient (IN) | payer MEDICAID ==
[~2023-09-26] VITALS: Ht 157.5 cm; Wt 51.4 kg
[2023-09-27 01:51] LABS: BASOPHILS % (AUTO) 0.4 % (0-1); EOSINOPHILS # (AUTO) 0.2 X10'3 (0-0.9); EOSINOPHILS % (AUTO) 5.9 % (0-6); HEMATOCRIT 29.9 % (42.0-52.0); HEMOGLOBIN 10.3 g/dl (14.0-17.9); LYMPHOCYTES # (AUTO) 0.8 X10'3 (1.1-4.8); LYMPHOCYTES % (AUTO) 21.4 % (21-51); MEAN CORPUSCULAR HEMOGLOBIN 34.1 PG (27.0-31.0); MEAN CORPUSCULAR HGB CONC 34.4 g/dL (33.0-36.5); MEAN CORPUSCULAR VOLUME 99.2 FL (78-98); MEAN PLATELET VOLUME 8.5 FL (7.4-10.4); MONOCYTES # (AUTO) 0.4 X10'3 (0-0.9); MONOCYTES % (AUTO) 10.4 % (2-12); NEUTROPHILS # (AUTO) 2.2 X10'3 (1.8-7.7); NEUTROPHILS % (AUTO) 61.9 % (42-75); PLATELET COUNT 133 X10'3 (140-440); RED BLOOD COUNT 3.01 X10'6 (4.70-6.10); RED CELL DISTRIBUTION WIDTH 14.1 % (11.5-14.5); WHITE BLOOD COUNT 3.6 X10'3 (4.5-11.0)
[2023-09-27 02:04] LABS: ALBUMIN 3.5 G/DL (3.4-5.0); ANION GAP 12 (8-16); BLOOD UREA NITROGEN 80 MG/DL (7-18); BUN/CREATININE RATIO 30.8 (10.0-20.0); CALCIUM 8.1 MG/DL (8.5-10.1); CHLORIDE 106 MMOL/L (99-107); GLUCOSE 159 MG/DL (70-104); POTASSIUM 4.7 MMOL/L (3.5-5.1); SODIUM 142 MMOL/L (135-145); TOTAL CARBON DIOXIDE 23.6 MMOL/L (24-32); eCRCL 20 ML/MIN; eGFR 25 ML/MIN
[2023-09-27] MEDS: normal saline 1000ML IV soln IVB ONE (03:01)
[2023-09-27] MEDS ORDERED: potassium Cl 40MEQ/1/2NS 520ml 520 ML IV PRN (03:25)
[2023-09-27] MEDS ORDERED: acetaminophen 325mg tablet PO PRN (03:25)
[2023-09-27] MEDS ORDERED: magnesium hydroxide 30ml (MOM) UD suspension PO PRN ×2 (03:25→18:15)
[2023-09-27] MEDS ORDERED: magnesium 4gm in 100ml NS 100 ML IV PRN (03:25)
[2023-09-27] MEDS: LidoCAINE 2% Topical Jelly 11mL syringe TOP ONE (03:25)
[2023-09-27] MEDS ORDERED: mag hydrox/Alum hydrox/simeth 30ml oral suspension PO PRN (03:25)
[2023-09-27] MEDS ORDERED: potassium Cl 20 mEq SR tablet PO PRN ×2 (03:25)
[2023-09-27] MEDS ORDERED: magnesium Cl slow-release 64mg tablet PO PRN (03:25)
[2023-09-27] MEDS: normal saline 1000ml 1,000 ML IV SCH (04:41)
[2023-09-27 04:53] LABS: BILIRUBIN,URINE NEGATIVE (Neg); CLARITY,URINE CLEAR (Clear); COLOR,URINE YELLOW (Yellow); GLUCOSE, URINE >=1000 mg/dl (Neg); KETONES,URINE NEGATIVE (Neg); LEUKOCYTE ESTERASE ,URINE NEGATIVE (Neg); NITRITES, URINE NEGATIVE (Neg); OCCULT BLOOD,URINE NEGATIVE (Neg); PROTEIN,URINE NEGATIVE (Neg); UROBILINOGEN,URINE 0.2 E.U/dL (0.2-1.0)
[2023-09-27 05:00] LABS: UA COLLECTION TYPE FOLEY CATH
[2023-09-27 05:01] LABS: BACTERIA,URINE FEW /HPF (Neg); MUCUS STRANDS NONE SEEN /LPF (Neg); RBC,URINE 0-2 /HPF (0-2); SQUAMOUS EPITHELIAL CELL,UR NONE SEEN /LPF (FEW)
[2023-09-27] MEDS ORDERED: DEXTROSE 15 GM of carb/4 tabs (each vial/BOTTLE has 4 tablets) PO PRN ×2 (06:00)
[2023-09-27] MEDS ORDERED: dextrose 50%-water 50ml dispensing syringe IV PRN ×2 (06:00)
[2023-09-27] MEDS ORDERED: glucagon, human recombinant 1mg kit SUBCUT PRN (06:00)
[2023-09-27] MEDS: MESSAGE TO PHARMACY PO ONE (06:01)
[2023-09-27] MEDS: heparin, porcine 5000 units/ml vial SQ SCH (08:36)
[2023-09-27] MEDS: docusate sod 100mg capsule PO SCH (08:36)
[2023-09-27 08:51] LABS: FREE T4 (FREE THYROXINE) 1.45 NG/DL (0.73-1.40); THYROID STIMULATING HORMONE 1.04 ulU/ml (0.34-4.50)
[2023-09-27 12:09] VITALS: BP 115/55; PULSE 42; RESP 15; TEMP 97.7; O2SAT 100
[2023-09-27] MEDS ORDERED: LORazepam 2 mg/ml vial IV PRN (15:55)
[2023-09-27 17:56] VITALS: BP 126/87; PULSE 106; RESP 22; TEMP 97.4; O2SAT 98
[2023-09-27 18:00] VITALS: BP 132/64; PULSE 60; RESP 20; TEMP 97.4; O2SAT 98
[2023-09-27] MEDS ORDERED: magnesium hydroxide 30ml (MOM) UD suspension PO SCH (18:15)
[2023-09-27 20:00] VITALS: BP_SYST 121; BP_SYST 95; BP_DIAS 54; BP_DIAS 59; PULSE 37
[2023-09-27] MEDS: calcium carbonate 500mg tablet PO SCH (20:24)
[2023-09-27] MEDS: sodium bicarbonate 650mg tablet PO SCH (20:24)
[2023-09-27] MEDS: atorvastatin 10mg tablet PO SCH (20:25)
[2023-09-27] MEDS: topiramate 100mg tablet PO SCH (20:51)
[2023-09-27] MEDS: ondansetron/PF 4mg/2ml inj IV PRN (20:55)
[2023-09-27] MEDS: insulin glargine (Lantus) pen - multi-dose SQ SCH (21:00)
[2023-09-27 22:00] VITALS: BP 121/54; PULSE 37; RESP 18; TEMP 97.6; O2SAT 100
[2023-09-28 02:00] VITALS: BP 106/74; PULSE 45; RESP 19; TEMP 97.6; O2SAT 99
[2023-09-28 07:00] VITALS: BP 119/61; PULSE 36; RESP 16; TEMP 98.2; O2SAT 98
[2023-09-28 07:11] LABS: BASOPHILS % (AUTO) 0.4 % (0-1); EOSINOPHILS # (AUTO) 0.2 X10'3 (0-0.9); EOSINOPHILS % (AUTO) 4.6 % (0-6); HEMOGLOBIN 10.6 g/dl (14.0-17.9); LYMPHOCYTES # (AUTO) 0.7 X10'3 (1.1-4.8); LYMPHOCYTES % (AUTO) 16.5 % (21-51); MEAN CORPUSCULAR HEMOGLOBIN 34.2 PG (27.0-31.0); MEAN CORPUSCULAR HGB CONC 34.1 g/dL (33.0-36.5); MEAN CORPUSCULAR VOLUME 100.1 FL (78-98); MEAN PLATELET VOLUME 8.7 FL (7.4-10.4); MONOCYTES # (AUTO) 0.4 X10'3 (0-0.9); MONOCYTES % (AUTO) 9.3 % (2-12); NEUTROPHILS % (AUTO) 69.2 % (42-75); PLATELET COUNT 118 X10'3 (140-440); RED BLOOD COUNT 3.09 X10'6 (4.70-6.10); RED CELL DISTRIBUTION WIDTH 14.2 % (11.5-14.5); WHITE BLOOD COUNT 4.4 X10'3 (4.5-11.0)
[2023-09-28 07:20] LABS: ALBUMIN 3.2 G/DL (3.4-5.0); ANION GAP 9 (8-16); BLOOD UREA NITROGEN 44 MG/DL (7-18); BUN/CREATININE RATIO 26.3 (10.0-20.0); CALCIUM 7.9 MG/DL (8.5-10.1); CHLORIDE 115 MMOL/L (99-107); CREATININE 1.67 MG/DL (0.60-1.10); GLUCOSE 85 MG/DL (70-104); POTASSIUM 4.9 MMOL/L (3.5-5.1); SODIUM 143 MMOL/L (135-145); TOTAL CARBON DIOXIDE 19.3 MMOL/L (24-32); eCRCL 32 ML/MIN; eGFR 41 ML/MIN
[2023-09-28] MEDS: docusate sod 100mg capsule PO SCH (08:00)
[2023-09-28] MEDS ORDERED: aspirin 81mg, enteric-coated 1 TAB TABLET.DR PO SCH (08:00)
[2023-09-28] MEDS: multivitamins, therapeutics tablet PO SCH (08:53)
[2023-09-28] MEDS: salt irrigation nasal spray 45 ML SPRAY NS SCH (08:54)
[2023-09-28] MEDS: fluticasone nasal spray 16GM bottle NS SCH (08:54)
[2023-09-28] MEDS: sodium bicarbonate (8.4%) inj. 50 MEQ in dextrose 5%-water 1,000 ML IV SCH (09:07)
[2023-09-28] MEDS: levoTHYROXINE 25mcg tablet PO SCH (09:15)
[2023-09-28] MEDS ORDERED: ESLI200T PO (11:20)
[2023-09-28] MEDS ORDERED: LINA5TAB4 PO (11:20)
[2023-09-28] MEDS ORDERED: FLUO10TA34 PO (11:20)
[2023-09-28] MEDS ORDERED: DAPA5TAB PO (11:20)
[2023-09-28] MEDS ORDERED: LANTUS SQ ×2 (11:20→12:35)
[2023-09-28] MEDS ORDERED: LISI10TA27 PO (11:20)
[2023-09-28] MEDS ORDERED: LAMO100T PO ×2 (11:20→12:35)
[2023-09-28] MEDS ORDERED: DIAZ10TA4 RC (12:35)
[2023-09-28] MEDS ORDERED: PRAV20TA4 PO (12:35)
[2023-09-28] MEDS ORDERED: BENZ200C53 PO (12:35)
[2023-09-28] MEDS ORDERED: GLIP5TAB26 PO (12:35)
[2023-09-28] MEDS ORDERED: GLUC3SPR INH (12:35)
[2023-09-28] MEDS ORDERED: LEVO50TA8 PO (12:35)
[2023-09-28] MEDS ORDERED: ACET-1025 PO (12:47)
[2023-09-28] MEDS: NUT.TX.GLUC.INTOLER,LAC-FR,SOY (GLUCERNA) 237 ML PO SCH ×2 (13:00→21:00)
[2023-09-28] MEDS ORDERED: ASPI-1265 PO (13:02)
[2023-09-28] MEDS ORDERED: non-formulary drug (Acetaminophen (Tylenol Extra Strength) 1 TAB) PO PRN (13:20)
[2023-09-28 15:00] VITALS: BP 156/61; PULSE 89; RESP 18; TEMP 98.1; O2SAT 99
[2023-09-28] MEDS: FLUoxetine 10mg capsule PO SCH (17:03)
[2023-09-28] MEDS: lisinopril 10 MG tablet PO ONE (17:05)
[2023-09-28 18:00] VITALS: BP 152/56; PULSE 44; RESP 14; TEMP 97.7; O2SAT 98
[2023-09-28] MEDS: topiramate 100mg tablet PO SCH (20:55)
[2023-09-28] MEDS: benzonatate 100mg capsule PO SCH (20:58)
[2023-09-28] MEDS: lamoTRIgine 100mg tablet PO SCH (20:58)
[2023-09-28] MEDS: OMEGA-3/DHA/EPA/FISH OIL 1 EACH CAPSULE.DR PO SCH (20:59)
[2023-09-28 22:00] VITALS: BP 139/56; PULSE 56; RESP 22; TEMP 97.4; O2SAT 94
[2023-09-29 02:00] VITALS: BP 145/63; PULSE 46; RESP 12; TEMP 97.7; O2SAT 95
[2023-09-29 07:26] VITALS: BP 102/49; PULSE 48; RESP 15; TEMP 98; O2SAT 95
[2023-09-29] MEDS: linagliptin 5mg tablet PO SCH (07:58)
[2023-09-29] MEDS: levoTHYROXINE 25mcg tablet PO SCH (07:59)
[2023-09-29] MEDS: DAPAGLIFLOZIN 10MG TABLET PO SCH (07:59)
[2023-09-29] MEDS: aspirin 81mg tab.chew PO SCH (07:59)
[2023-09-29] MEDS ORDERED: DIAZEPAM 10 MG RC SCH (08:00)
[2023-09-29] MEDS ORDERED: FLUoxetine 10mg capsule PO SCH (08:00)
[2023-09-29] MEDS: lisinopril 10 MG tablet PO SCH (08:00)
[2023-09-29] MEDS ORDERED: non-formulary drug (Pravastatin Sodium 20 MG) PO SCH (08:00)
[2023-09-29 08:28] LABS: BASOPHILS % (AUTO) 0.3 % (0-1); EOSINOPHILS # (AUTO) 0.1 X10'3 (0-0.9); EOSINOPHILS % (AUTO) 2.9 % (0-6); HEMOGLOBIN 10.8 g/dl (14.0-17.9); LYMPHOCYTES # (AUTO) 0.7 X10'3 (1.1-4.8); LYMPHOCYTES % (AUTO) 21.3 % (21-51); MEAN CORPUSCULAR HEMOGLOBIN 33.3 PG (27.0-31.0); MEAN CORPUSCULAR HGB CONC 33.9 g/dL (33.0-36.5); MEAN CORPUSCULAR VOLUME 98.5 FL (78-98); MEAN PLATELET VOLUME 8.9 FL (7.4-10.4); MONOCYTES # (AUTO) 0.3 X10'3 (0-0.9); MONOCYTES % (AUTO) 8.6 % (2-12); NEUTROPHILS # (AUTO) 2.3 X10'3 (1.8-7.7); NEUTROPHILS % (AUTO) 66.9 % (42-75); PLATELET COUNT 131 X10'3 (140-440); RED BLOOD COUNT 3.25 X10'6 (4.70-6.10); RED CELL DISTRIBUTION WIDTH 13.8 % (11.5-14.5); WHITE BLOOD COUNT 3.5 X10'3 (4.5-11.0)
[2023-09-29 08:29] LABS: ALBUMIN 3.5 G/DL (3.4-5.0); ANION GAP 8 (8-16); BLOOD UREA NITROGEN 33 MG/DL (7-18); BUN/CREATININE RATIO 20.2 (10.0-20.0); CALCIUM 8.4 MG/DL (8.5-10.1); CHLORIDE 106 MMOL/L (99-107); CREATININE 1.63 MG/DL (0.60-1.10); GLUCOSE 182 MG/DL (70-104); POTASSIUM 4.1 MMOL/L (3.5-5.1); SODIUM 137 MMOL/L (135-145); TOTAL CARBON DIOXIDE 22.8 MMOL/L (24-32); eCRCL 32 ML/MIN; eGFR 43 ML/MIN
[2023-09-29 11:56] VITALS: BP 111/72; PULSE 47; RESP 15; TEMP 97.9; O2SAT 100
[2023-09-29] MEDS: insulin Lispro (HumaLOG) vial - multi-dose SQ SCH (13:57)
[2023-09-29 15:50] VITALS: BP 134/49; PULSE 47; RESP 12; TEMP 98; O2SAT 96
[2023-09-29 18:00] VITALS: BP 139/59; PULSE 49; RESP 17; TEMP 97.3; O2SAT 99
[2023-09-29 22:00] VITALS: BP 151/54; PULSE 62; RESP 18; TEMP 97.6; O2SAT 100
[2023-09-30 02:00] VITALS: BP 129/48; PULSE 39; RESP 10; TEMP 97.2; O2SAT 100
[2023-09-30 07:00] VITALS: BP 130/56; PULSE 67; RESP 25; TEMP 97; O2SAT 100
[2023-09-30 08:25] LABS: BASOPHILS % (AUTO) 0.5 % (0-1); EOSINOPHILS # (AUTO) 0.2 X10'3 (0-0.9); EOSINOPHILS % (AUTO) 5.1 % (0-6); HEMATOCRIT 32.3 % (42.0-52.0); HEMOGLOBIN 11.1 g/dl (14.0-17.9); LYMPHOCYTES # (AUTO) 0.8 X10'3 (1.1-4.8); MEAN CORPUSCULAR HEMOGLOBIN 33.5 PG (27.0-31.0); MEAN CORPUSCULAR HGB CONC 34.3 g/dL (33.0-36.5); MEAN CORPUSCULAR VOLUME 97.7 FL (78-98); MEAN PLATELET VOLUME 8.8 FL (7.4-10.4); MONOCYTES # (AUTO) 0.4 X10'3 (0-0.9); MONOCYTES % (AUTO) 11.1 % (2-12); NEUTROPHILS % (AUTO) 59.3 % (42-75); PLATELET COUNT 136 X10'3 (140-440); RED CELL DISTRIBUTION WIDTH 13.9 % (11.5-14.5); WHITE BLOOD COUNT 3.3 X10'3 (4.5-11.0)
[2023-09-30 08:35] LABS: ALBUMIN 3.6 G/DL (3.4-5.0); ANION GAP 13 (8-16); BLOOD UREA NITROGEN 26 MG/DL (7-18); BUN/CREATININE RATIO 14.4 (10.0-20.0); CHLORIDE 105 MMOL/L (99-107); GLUCOSE 228 MG/DL (70-104); POTASSIUM 4.2 MMOL/L (3.5-5.1); SODIUM 138 MMOL/L (135-145); TOTAL CARBON DIOXIDE 19.7 MMOL/L (24-32); eCRCL 29 ML/MIN; eGFR 38 ML/MIN
[2023-09-30 12:19] VITALS: BP 116/60; PULSE 42; RESP 15; TEMP 97.4; O2SAT 96
[2023-09-30 16:19] VITALS: BP 129/58; PULSE 66; RESP 20; TEMP 98.2; O2SAT 100
[2023-09-30 18:00] VITALS: BP 83/64; PULSE 75; RESP 18; TEMP 98; O2SAT 99
[2023-09-30] MEDS: topiramate 25mg tablet PO SCH (19:49)
[2023-09-30] MEDS: topiramate 100mg tablet PO SCH (19:50)
[2023-09-30 22:00] VITALS: BP 106/57; PULSE 61; RESP 18; TEMP 97.9; O2SAT 98
[2023-10-01 02:00] VITALS: BP 133/62; PULSE 50; RESP 20; TEMP 98; O2SAT 98
[2023-10-01 06:43] LABS: BASOPHILS % (AUTO) 0.5 % (0-1); EOSINOPHILS # (AUTO) 0.2 X10'3 (0-0.9); EOSINOPHILS % (AUTO) 5.2 % (0-6); HEMATOCRIT 30.7 % (42.0-52.0); HEMOGLOBIN 10.5 g/dl (14.0-17.9); LYMPHOCYTES # (AUTO) 0.9 X10'3 (1.1-4.8); LYMPHOCYTES % (AUTO) 22.6 % (21-51); MEAN CORPUSCULAR HEMOGLOBIN 33.9 PG (27.0-31.0); MEAN CORPUSCULAR HGB CONC 34.2 g/dL (33.0-36.5); MEAN PLATELET VOLUME 8.4 FL (7.4-10.4); MONOCYTES # (AUTO) 0.5 X10'3 (0-0.9); MONOCYTES % (AUTO) 11.6 % (2-12); NEUTROPHILS # (AUTO) 2.4 X10'3 (1.8-7.7); NEUTROPHILS % (AUTO) 60.1 % (42-75); PLATELET COUNT 135 X10'3 (140-440); RED CELL DISTRIBUTION WIDTH 13.9 % (11.5-14.5)
[2023-10-01 06:50] LABS: ALBUMIN 3.5 G/DL (3.4-5.0); ANION GAP 9 (8-16); BLOOD UREA NITROGEN 32 MG/DL (7-18); BUN/CREATININE RATIO 16.9 (10.0-20.0); CALCIUM 8.6 MG/DL (8.5-10.1); CHLORIDE 105 MMOL/L (99-107); CREATININE 1.89 MG/DL (0.60-1.10); GLUCOSE 117 MG/DL (70-104); SODIUM 138 MMOL/L (135-145); TOTAL CARBON DIOXIDE 23.6 MMOL/L (24-32); eCRCL 28 ML/MIN; eGFR 36 ML/MIN
[2023-10-01 06:51] LABS: POTASSIUM 3.6 MMOL/L (3.5-5.1)
[2023-10-01 07:00] VITALS: BP 124/57; PULSE 55; RESP 15; TEMP 98.6; O2SAT 98
[2023-10-01 11:00] VITALS: BP 149/95; PULSE 58; RESP 15; TEMP 98.8; O2SAT 99
[2023-10-01] MEDS ORDERED: LEVO25TA7 PO (21:20)
== END 2023-10-01 13:08 | disposition home or self-care (01) | DRG 52 ==
LOC: ER 13:47 → ED HOLD 09-27 03:38 → PCU 3S 09-27 08:01
PROVIDERS: ADMIT Internal Medicine Pulmonary Disease; ATTEND Family Medicine
PROC: 4A00X4Z Measurement of Central Nervous Electrical Activity, External Approach (ICD-10-PCS; principal; 2023-09-28)
DX: G93.41 Metabolic encephalopathy (principal); N17.0 Acute kidney failure with tubular necrosis; E87.20 Acidosis, unspecified; E11.51 Type 2 diabetes mellitus with diabetic peripheral angiopathy without gangrene; E11.22 Type 2 diabetes mellitus with diabetic chronic kidney disease; I95.9 Hypotension, unspecified; Z66 Do not resuscitate; E03.9 Hypothyroidism, unspecified; E87.8 Other disorders of electrolyte and fluid balance, not elsewhere classified; G40.109 Localization-related (focal) (partial) symptomatic epilepsy and epileptic syndromes with simple partial seizures, not intractable, without status epilepticus; E78.00 Pure hypercholesterolemia, unspecified; F41.9 Anxiety disorder, unspecified; K21.9 Gastro-esophageal reflux disease without esophagitis; E86.0 Dehydration; R00.1 Bradycardia, unspecified; I12.9 Hypertensive chronic kidney disease with stage 1 through stage 4 chronic kidney disease, or unspecified chronic kidney disease; R62.7 Adult failure to thrive; G89.29 Other chronic pain; N18.30 Chronic kidney disease, stage 3 unspecified; M81.0 Age-related osteoporosis without current pathological fracture; Z89.512 Acquired absence of left leg below knee; Z68.20 Body mass index [BMI] 20.0-20.9, adult; Z88.5 Allergy status to narcotic agent; Z79.899 Other long term (current) drug therapy; Z74.01 Bed confinement status
CPT/HCPCS: 36415; 70450; 71045; 80048; 81001; 82948; 83036; 84145; 84439; 84443; 84480; 85025; 87088; 95816; 97161; 97530; 99285; A4314; A6590; G0378; J1644; J1815; J2405; J3490; J7030; J7070

== ENCOUNTER 2023-11-14 09:29 | Day surgery (SDC) | payer MEDICAID ==
[~2023-11-14] VITALS: Ht 157.5 cm; Wt 50.0 kg
[~2023-11-14 09:29] MED LIST changes: +ACET-1025 PO; -ACET325T53 PO; +ASPI-1265 PO; -AZIT500T9 PO; +BENZ200C53 PO; -CALC-157 PO; -CHOL100010 PO; +DAPA5TAB PO; +DIAZ10TA4 RC; -DIAZ1KIT2 RC; -DOCU50CA4 PO; +FLUO10TA34 PO; +GLIP5TAB26 PO; +GLUC3SPR INH; -INSU100I27 SQ; +LAMO100T PO; -LAMO200T10 PO; -LAMO25TA62 PO; +LANTUS SQ; -LANTUS SUBCUT; -LEVE750T6 PO; +LEVO25TA7 PO; +LINA5TAB4 PO; +LISI10TA27 PO; -MAGN-64 PO; -MAGN800O PO; -MIRT-87 PO; -MULT-1085 PO; -ONDA4TAB12 PO; -SITA100T15 PO; -SODI650T29 PO; -SYN0.025T PO; -TRAZ-251 PO
[2023-11-14 09:50] VITALS: BP 142/68; PULSE 46; RESP 16
[2023-11-14] MEDS ORDERED: ESLI400T PO (10:31)
[2023-11-14] MEDS ORDERED: CALC-492 PO (10:32)
[2023-11-14] MEDS ORDERED: ASPI-611 PO (10:32)
[2023-11-14] MEDS ORDERED: DOCU-148 PO (10:33)
[2023-11-14] MEDS ORDERED: FAMO-280 PO (10:34)
[2023-11-14] MEDS ORDERED: OMEG-166 PO (10:35)
[2023-11-14] MEDS ORDERED: LAMO300T2 PO (10:36)
[2023-11-14] MEDS ORDERED: LANTUS SUBCUT (10:36)
[2023-11-14] MEDS ORDERED: LEVO25CA4 PO (10:37)
[2023-11-14] MEDS ORDERED: MULT-1085 PO (10:38)
[2023-11-14] MEDS ORDERED: FLUO10CA28 PO (10:39)
[2023-11-14] MEDS ORDERED: MIRT-142 PO (10:39)
[2023-11-14] MEDS ORDERED: TOP100T PO (10:40)
[2023-11-14] MEDS ORDERED: SODI650T29 PO (10:40)
[2023-11-14] MEDS ORDERED: LIDOcaine 2% Viscous 15ml cup ONE (10:41)
[2023-11-14] MEDS ORDERED: fentaNYL/PF 50MCG/1 ML 2ML syringe ONE (10:41)
[2023-11-14] MEDS ORDERED: MIDAZolam 1 MG/ML 5ML VIAL ONE (10:41)
[2023-11-14] MEDS ORDERED: VITC500T PO (10:41)
[2023-11-14] MEDS ORDERED: diphenhydrAMINE 50 mg/ml inj ONE (10:41)
[2023-11-14 11:09] VITALS: BP 82/43; PULSE 37; RESP 16; O2SAT 98
[2023-11-14 11:19] VITALS: BP 82/44; PULSE 58; RESP 16; O2SAT 99
[2023-11-14 11:29] VITALS: BP 70/37; PULSE 56; RESP 16; O2SAT 99
[2023-11-14 11:39] VITALS: BP 80/55; PULSE 61; RESP 16; O2SAT 98
== END 2023-11-14 11:51 | disposition home or self-care (01) ==
LOC: GI LAB 09:29
PROVIDERS: ATTEND Internal Medicine Gastroenterology
DX: K29.70 Gastritis, unspecified, without bleeding (principal); R10.13 Epigastric pain; R11.2 Nausea with vomiting, unspecified
CPT/HCPCS: 43239; J1200; J2250; J3010; J7030; Z7512; 99152; A4620

== ENCOUNTER 2024-05-03 13:47 | Emergency (ER) | payer MEDICAID ==
[~2024-05-03] VITALS: Ht 157.5 cm; Wt 50.9 kg
[~2024-05-03 13:47] MED LIST changes: -ACET-1025 PO; -ASPI-1265 PO; +ASPI-611 PO; -BENZ200C53 PO; +CALC-492 PO; -DIAZ10TA4 RC; +DOCU-148 PO; +ESLI400T PO; +FAMO-280 PO; +FLUO10CA28 PO; -FLUO10TA34 PO; -GLIP5TAB26 PO; -GLUC3SPR INH; -LAMO100T PO; +LAMO300T2 PO; -LANTUS SQ; +LANTUS SUBCUT; +LEVO25CA4 PO; -LEVO25TA7 PO; +MIRT-142 PO; +MULT-1085 PO; +OMEG-166 PO; +SODI650T29 PO; +VITC500T PO
[2024-05-03 15:49] LABS: BASOPHILS # (AUTO) 0.1 X10'3 (0-0.2); BASOPHILS % (AUTO) 1.9 % (0-1); EOSINOPHILS # (AUTO) 0.1 X10'3 (0-0.9); EOSINOPHILS % (AUTO) 2.5 % (0-6); HEMATOCRIT 37.3 % (42.0-52.0); HEMOGLOBIN 12.6 g/dl (14.0-17.9); LYMPHOCYTES # (AUTO) 0.9 X10'3 (1.1-4.8); LYMPHOCYTES % (AUTO) 20.2 % (21-51); MEAN CORPUSCULAR HEMOGLOBIN 33.6 PG (27.0-31.0); MEAN CORPUSCULAR HGB CONC 33.6 g/dL (33.0-36.5); MEAN CORPUSCULAR VOLUME 99.8 FL (78-98); MEAN PLATELET VOLUME 8.1 FL (7.4-10.4); MONOCYTES # (AUTO) 0.3 X10'3 (0-0.9); MONOCYTES % (AUTO) 7.3 % (2-12); NEUTROPHILS # (AUTO) 2.9 X10'3 (1.8-7.7); NEUTROPHILS % (AUTO) 68.1 % (42-75); PLATELET COUNT 166 X10'3 (140-440); RED BLOOD COUNT 3.74 X10'6 (4.70-6.10); RED CELL DISTRIBUTION WIDTH 13.8 % (11.5-14.5); WHITE BLOOD COUNT 4.3 X10'3 (4.5-11.0)
[2024-05-03 15:58] LABS: ALBUMIN 3.9 G/DL (3.4-5.0); ANION GAP 8 (8-16); BLOOD UREA NITROGEN 68 MG/DL (7-18); BUN/CREATININE RATIO 27.2 (10.0-20.0); CALCIUM 9.3 MG/DL (8.5-10.1); CHLORIDE 106 MMOL/L (99-107); GLUCOSE 99 MG/DL (70-104); POTASSIUM 4.6 MMOL/L (3.5-5.1); SODIUM 138 MMOL/L (135-145); TOTAL CARBON DIOXIDE 24.1 MMOL/L (24-32); eCRCL 21 ML/MIN; eGFR 26 ML/MIN
[2024-05-03 16:17] LABS: BILIRUBIN,URINE NEGATIVE (Neg); CLARITY,URINE SLIGHTLY CLOUDY (Clear); COLOR,URINE YELLOW (Yellow); GLUCOSE, URINE 500 mg/dl (Neg); KETONES,URINE NEGATIVE (Neg); LEUKOCYTE ESTERASE ,URINE NEGATIVE (Neg); NITRITES, URINE NEGATIVE (Neg); OCCULT BLOOD,URINE NEGATIVE (Neg); PH,URINE 7.5 (4.8-8.0); PROTEIN,URINE NEGATIVE (Neg); UROBILINOGEN,URINE 0.2 E.U/dL (0.2-1.0)
[2024-05-03 16:28] LABS: UA COLLECTION TYPE STRAIGHT CATH
[2024-05-03 16:29] LABS: BACTERIA,URINE FEW /HPF (Neg); MUCUS STRANDS FEW /LPF (Neg); SQUAMOUS EPITHELIAL CELL,UR FEW /LPF (FEW); TRIPLE PHOSPHATE CRYST 1+ /HPF (NEGATIVE); WBC CLUMPS,URINE FEW /HPF (NEGATIVE)
[2024-05-03] MEDS: normal saline 1000ML IV soln IVB ONE (16:30)
[2024-05-03] MEDS ORDERED: DOXY100C77 PO (16:42)
[2024-05-03] MEDS: normal saline 1000ml 1,000 ML IV ONE (17:32)
[2024-05-03] MEDS: DEXTROSE 15 GM of carb/4 tabs (each vial/BOTTLE has 4 tablets) PO ONE (17:32)
[2024-05-03 18:10] VITALS: BP 131/71; PULSE 79; RESP 18; TEMP 98.2; O2SAT 95
== END 2024-05-03 18:12 | disposition home or self-care (01) ==
LOC: ER 13:48
DX: N39.0 Urinary tract infection, site not specified (principal); F03.90 Unspecified dementia, unspecified severity, without behavioral disturbance, psychotic disturbance, mood disturbance, and anxiety; E78.00 Pure hypercholesterolemia, unspecified; E11.22 Type 2 diabetes mellitus with diabetic chronic kidney disease; I12.9 Hypertensive chronic kidney disease with stage 1 through stage 4 chronic kidney disease, or unspecified chronic kidney disease; N18.4 Chronic kidney disease, stage 4 (severe); E03.9 Hypothyroidism, unspecified; F41.9 Anxiety disorder, unspecified; G89.29 Other chronic pain; Z98.890 Other specified postprocedural states; Z56.0 Unemployment, unspecified; Z88.8 Allergy status to other drugs, medicaments and biological substances; Z88.5 Allergy status to narcotic agent; Z79.82 Long term (current) use of aspirin; Z79.4 Long term (current) use of insulin; Z79.899 Other long term (current) drug therapy
CPT/HCPCS: 36415; 80048; 81001; 85025; 87088; 96360; 96361; 99284; J7030; C1758

== ENCOUNTER 2024-05-04 15:33 | Emergency (ER) | payer MEDICAID ==
[~2024-05-04] VITALS: Ht 162.6 cm; Wt 54.5 kg
[~2024-05-04 15:33] MED LIST changes: +DOXY100C77 PO
[2024-05-04] MEDS: normal saline 1000ml 1,000 ML IV ONE (16:46)
[2024-05-04] MEDS: CefTRIAXone/D5W-Rocephin 1gm 50 ML IV ONE (16:46)
[2024-05-04 17:00] LABS: EOSINOPHILS # (AUTO) 0.1 X10'3 (0-0.9); HEMOGLOBIN 13.5 g/dl (14.0-17.9)
[2024-05-04 17:02] LABS: BASOPHILS % (AUTO) 0.4 % (0-1); EOSINOPHILS % (AUTO) 1.4 % (0-6); HEMATOCRIT 40.3 % (42.0-52.0); LYMPHOCYTES # (AUTO) 0.9 X10'3 (1.1-4.8); LYMPHOCYTES % (AUTO) 17.7 % (21-51); MEAN CORPUSCULAR HEMOGLOBIN 33.8 PG (27.0-31.0); MEAN CORPUSCULAR HGB CONC 33.5 g/dL (33.0-36.5); MEAN PLATELET VOLUME 8.7 FL (7.4-10.4); MONOCYTES # (AUTO) 0.3 X10'3 (0-0.9); MONOCYTES % (AUTO) 6.4 % (2-12); NEUTROPHILS # (AUTO) 3.6 X10'3 (1.8-7.7); NEUTROPHILS % (AUTO) 74.1 % (42-75); PLATELET COUNT 161 X10'3 (140-440); RED BLOOD COUNT 3.99 X10'6 (4.70-6.10); RED CELL DISTRIBUTION WIDTH 14.3 % (11.5-14.5); WHITE BLOOD COUNT 4.8 X10'3 (4.5-11.0)
[2024-05-04 17:10] LABS: ALANINE AMINOTRANSFERASE 37 U/L (12-78); ALBUMIN 4.4 G/DL (3.4-5.0); ALBUMIN/GLOBULIN RATIO 1.1 (1.1-1.5); ALKALINE PHOSPHATASE 80 IU/L (46-116); ANION GAP 11 (8-16); BILIRUBIN,TOTAL 0.6 MG/DL (0.1-1.0); BLOOD UREA NITROGEN 51 MG/DL (7-18); BUN/CREATININE RATIO 25.5 (10.0-20.0); CALCIUM 9.1 MG/DL (8.5-10.1); CHLORIDE 109 MMOL/L (99-107); GLUCOSE 93 MG/DL (70-104); SODIUM 139 MMOL/L (135-145); TOTAL CARBON DIOXIDE 18.8 MMOL/L (24-32); TOTAL PROTEIN 8.3 G/DL (6.4-8.2); eCRCL 28 ML/MIN; eGFR 34 ML/MIN
[2024-05-04 17:11] LABS: ASPARTATE AMINO TRANSFERASE 43 U/L (10-37); POTASSIUM 5.6 MMOL/L (3.5-5.1)
[2024-05-04 17:24] VITALS: BP 151/74; PULSE 60; RESP 14; O2SAT 96
[2024-05-04 18:16] VITALS: TEMP 98.5
== END 2024-05-04 18:19 | disposition home or self-care (01) ==
LOC: ER 15:33
DX: N39.0 Urinary tract infection, site not specified (principal); E78.00 Pure hypercholesterolemia, unspecified; I10 Essential (primary) hypertension; E11.9 Type 2 diabetes mellitus without complications; E03.9 Hypothyroidism, unspecified; F41.9 Anxiety disorder, unspecified; F03.90 Unspecified dementia, unspecified severity, without behavioral disturbance, psychotic disturbance, mood disturbance, and anxiety; M81.0 Age-related osteoporosis without current pathological fracture; Z88.5 Allergy status to narcotic agent; Z88.8 Allergy status to other drugs, medicaments and biological substances; Z79.82 Long term (current) use of aspirin; Z79.899 Other long term (current) drug therapy
CPT/HCPCS: 80053; 85025; 96365; 99284; J0696; J7030

== ENCOUNTER 2024-05-08 22:17 | Inpatient (IN) | payer MEDICAID ==
[~2024-05-08] VITALS: Ht 167.6 cm; Wt 56.8 kg
[2024-05-08 23:41] LABS: BASOPHILS % (AUTO) 0.2 % (0-1); EOSINOPHILS % (AUTO) 0.3 % (0-6); HEMATOCRIT 40.7 % (42.0-52.0); HEMOGLOBIN 13.3 g/dl (14.0-17.9); LYMPHOCYTES # (AUTO) 0.9 X10'3 (1.1-4.8); MEAN CORPUSCULAR HEMOGLOBIN 33.8 PG (27.0-31.0); MEAN CORPUSCULAR HGB CONC 32.6 g/dL (33.0-36.5); MEAN CORPUSCULAR VOLUME 103.6 FL (78-98); MEAN PLATELET VOLUME 8.4 FL (7.4-10.4); MONOCYTES # (AUTO) 0.7 X10'3 (0-0.9); MONOCYTES % (AUTO) 9.7 % (2-12); NEUTROPHILS # (AUTO) 6.1 X10'3 (1.8-7.7); NEUTROPHILS % (AUTO) 78.8 % (42-75); PLATELET COUNT 129 X10'3 (140-440); RED BLOOD COUNT 3.93 X10'6 (4.70-6.10); RED CELL DISTRIBUTION WIDTH 14.6 % (11.5-14.5); WHITE BLOOD COUNT 7.8 X10'3 (4.5-11.0)
[2024-05-08 23:46] LABS: ALANINE AMINOTRANSFERASE 26 U/L (12-78); ALBUMIN/GLOBULIN RATIO 1.1 (1.1-1.5); ALKALINE PHOSPHATASE 101 IU/L (46-116); ANION GAP 12 (8-16); ASPARTATE AMINO TRANSFERASE 26 U/L (10-37); BILIRUBIN,TOTAL 0.6 MG/DL (0.1-1.0); BLOOD UREA NITROGEN 58 MG/DL (7-18); BUN/CREATININE RATIO 27.5 (10.0-20.0); CALCIUM 9.7 MG/DL (8.5-10.1); CHLORIDE 108 MMOL/L (99-107); CREATININE 2.11 MG/DL (0.60-1.10); GLUCOSE 114 MG/DL (70-104); POTASSIUM 4.6 MMOL/L (3.5-5.1); SODIUM 138 MMOL/L (135-145); TOTAL CARBON DIOXIDE 17.8 MMOL/L (24-32); TOTAL PROTEIN 7.8 G/DL (6.4-8.2); eCRCL 28 ML/MIN; eGFR 32 ML/MIN
[2024-05-08 23:56] LABS: LIPASE 46 U/L (16-77); PRO BRAIN NATRIURETIC PEPTIDE 265 PG/ML (0-125)
[2024-05-09] MEDS: normal saline 1000ML IV soln IVB ONE
[2024-05-09 01:34] LABS: BILIRUBIN,URINE NEGATIVE (Neg); CLARITY,URINE CLEAR (Clear); COLOR,URINE YELLOW (Yellow); GLUCOSE, URINE 500 mg/dl (Neg); KETONES,URINE NEGATIVE (Neg); LEUKOCYTE ESTERASE ,URINE NEGATIVE (Neg); NITRITES, URINE NEGATIVE (Neg); OCCULT BLOOD,URINE NEGATIVE (Neg); PROTEIN,URINE TRACE mg/dl (Neg); UROBILINOGEN,URINE 0.2 E.U/dL (0.2-1.0)
[2024-05-09 01:41] LABS: UA COLLECTION TYPE FOLEY CATH
[2024-05-09 01:52] LABS: BACTERIA,URINE FEW /HPF (Neg); MUCUS STRANDS NONE SEEN /LPF (Neg); SQUAMOUS EPITHELIAL CELL,UR NONE SEEN /LPF (FEW)
[2024-05-09 01:53] LABS: AMORPHOUS PHOSPHATES 1+; RENAL CELLS, URINE FEW /HPF
[2024-05-09] MEDS: OLANZapine **IM** 10 mg inj. IM ONE (02:37)
[2024-05-09] MEDS: LIDOcaine 1% 30ml preserv. free vial IR ONE (02:44)
[2024-05-09] MEDS ORDERED: morphine 2 MG/ML inj. syringe IV PRN ×2 (03:00)
[2024-05-09] MEDS ORDERED: HYDROmorphone/PF 0.2 MG/ML SYRINGE IV PRN (03:00)
[2024-05-09] MEDS ORDERED: potassium Cl 40MEQ/1/2NS 520ml 520 ML IV PRN (03:00)
[2024-05-09] MEDS ORDERED: magnesium sulf-water 2g/50mL 50 ML IV PRN (03:00)
[2024-05-09] MEDS ORDERED: acetaminophen 325mg tablet PO PRN (03:00)
[2024-05-09] MEDS ORDERED: magnesium Cl slow-release 64mg tablet PO PRN (03:00)
[2024-05-09] MEDS ORDERED: magnesium hydroxide 30ml (MOM) UD suspension PO PRN (03:00)
[2024-05-09] MEDS ORDERED: magnesium sulf-water 4G/100mL 100 ML IV PRN (03:00)
[2024-05-09] MEDS ORDERED: potassium Cl 20 mEq SR tablet PO PRN ×2 (03:00)
[2024-05-09] MEDS ORDERED: HYDROmorphone inj. 0.5 MG/0.5 ML DISP.SYRIN IV PRN (03:00)
[2024-05-09] MEDS ORDERED: mag hydrox/Alum hydrox/simeth 30ml oral suspension PO PRN (03:00)
[2024-05-09] MEDS ORDERED: ondansetron/PF 4mg/2ml inj IV PRN (03:00)
[2024-05-09] MEDS: tamsulosin 0.4mg capsule PO ONE (03:30)
[2024-05-09] MEDS ORDERED: dextrose 50%-water 50ml dispensing syringe IV PRN ×2 (03:30)
[2024-05-09] MEDS: oxybutynin 5mg tablet PO SCH (03:30)
[2024-05-09] MEDS ORDERED: glucagon, human recombinant 1mg kit SUBCUT PRN (03:30)
[2024-05-09] MEDS ORDERED: DEXTROSE 15 GM of carb/4 tabs (each vial/BOTTLE has 4 tablets) PO PRN ×2 (03:30)
[2024-05-09] MEDS: LORazepam 2 mg/ml vial IV ONE (03:31)
[2024-05-09] MEDS ORDERED: ESLI200T PO (04:28)
[2024-05-09] MEDS: acetaminophen 1,000mg/100ml IV 100 ML IV ONE (04:35)
[2024-05-09] MEDS: normal saline 1000ml 1,000 ML IV SCH (05:40)
[2024-05-09] MEDS ORDERED: LAMO150T6 PO (05:43)
[2024-05-09] MEDS: INSULIN LISPRO 100 UNIT/ML INSULN.PEN MULTI-DOSE SQ SCH ×2 (07:00→09:00)
[2024-05-09] MEDS: levoTHYROXINE 25mcg tablet PO SCH (07:00)
[2024-05-09] MEDS: pantoprazole 40mg Tablet.DR PO SCH (07:30)
[2024-05-09] MEDS: OMEGA-3/DHA/EPA/FISH OIL 1 EACH CAPSULE.DR PO SCH (08:00)
[2024-05-09] MEDS: docusate sod 100mg capsule PO SCH (08:00)
[2024-05-09] MEDS ORDERED: sodium bicarbonate 650mg tablet PO SCH (08:00)
[2024-05-09] MEDS ORDERED: sodium bicarbonate (8.4%) inj. 50 MEQ in sodium chloride 0.45% 1,000 ML IV SCH (08:00)
[2024-05-09] MEDS: famotidine 10mg tablet PO SCH (08:00)
[2024-05-09] MEDS ORDERED: docusate sod 100mg capsule PO SCH (08:00)
[2024-05-09] MEDS: K and/or MAG REPLACEMENT MC SCH (08:00)
[2024-05-09] MEDS: pravastatin 40mg tablet PO SCH (09:14)
[2024-05-09] MEDS: lamoTRIgine 100mg tablet PO SCH (09:15)
[2024-05-09] MEDS: ascorbic acid 500mg tablet PO SCH (09:15)
[2024-05-09] MEDS: aspirin 81mg, enteric-coated 1 TAB TABLET.DR PO SCH (09:15)
[2024-05-09] MEDS: lisinopril 10 MG tablet PO SCH (09:16)
[2024-05-09] MEDS: topiramate 100mg tablet PO SCH (09:17)
[2024-05-09] MEDS: FLUoxetine 10mg capsule PO SCH (09:17)
[2024-05-09] MEDS: heparin, porcine 5000 units/ml vial SQ SCH (09:17)
[2024-05-09] MEDS: CefTRIAXone/D5W-Rocephin 1gm 50 ML IV SCH (09:19)
[2024-05-09] MEDS: aspirin 81mg tab.chew PO SCH (09:21)
[2024-05-09] MEDS: SODIUM BICARBONATE 150MEQ IN D5W 1,000 ML IV SCH (09:46)
[2024-05-09 10:00] VITALS: BP 124/43; PULSE 45; RESP 16; TEMP 98.3; O2SAT 98
[2024-05-09 10:28] VITALS: BP 103/47; PULSE 87; RESP 17; TEMP 98.3; O2SAT 98
[2024-05-09 10:33] LABS: MAGNESIUM 2.2 MG/DL (1.5-2.4)
[2024-05-09 10:41] VITALS: RESP 17; O2SAT 97
[2024-05-09] MEDS: sodium bicarbonate 1meq/ml inj 150 ML in dextrose 5%-water 1,000 ML IV SCH (11:28)
[2024-05-09] MEDS: normal saline 1000ml 1,000 ML IV ONE ×2 (11:30)
[2024-05-09] MEDS ORDERED: normal saline 1000ml 1,000 ML IV STA (12:21)
[2024-05-09] MEDS ORDERED: DOPamine 400mg/D5W 250ml 250 ML IV SCH (12:25)
[2024-05-09] MEDS ORDERED: famotidine 20mg tablet PO SCH (13:36)
[2024-05-09 14:09] LABS: BASOPHILS % (AUTO) 0.5 % (0-1); EOSINOPHILS % (AUTO) 0.2 % (0-6); HEMATOCRIT 34.1 % (42.0-52.0); HEMOGLOBIN 11.2 g/dl (14.0-17.9); LYMPHOCYTES % (AUTO) 13.9 % (21-51); MEAN CORPUSCULAR HEMOGLOBIN 33.8 PG (27.0-31.0); MEAN CORPUSCULAR HGB CONC 32.9 g/dL (33.0-36.5); MEAN CORPUSCULAR VOLUME 102.8 FL (78-98); MEAN PLATELET VOLUME 9.2 FL (7.4-10.4); MONOCYTES # (AUTO) 0.6 X10'3 (0-0.9); MONOCYTES % (AUTO) 8.8 % (2-12); NEUTROPHILS # (AUTO) 5.5 X10'3 (1.8-7.7); NEUTROPHILS % (AUTO) 76.6 % (42-75); PLATELET COUNT 135 X10'3 (140-440); RED BLOOD COUNT 3.32 X10'6 (4.70-6.10); RED CELL DISTRIBUTION WIDTH 14.5 % (11.5-14.5); WHITE BLOOD COUNT 7.2 X10'3 (4.5-11.0)
[2024-05-09 14:14] LABS: ABG HCO3 15.1 mmol/L (21.0-28.0); ABG OXYGEN SATURATION 94.1 % (94.0-98.0); ABG PCO2 (T) 30.6 mmHg (35.0-48.0); ABG PH (T) 7.311 (7.350-7.450); ABG PO2 (T) 68.5 mmHg (83.0-108.0); ALLEN'S TEST POSITIVE; FCOHb 0.4 % (0.5-1.5); FHHb 5.9 % (0.0-5.0); FMetHb 0.3 % (0.0-1.5); FO2Hb 93.4 % (94.0-98.0); MODE ROOM AIR; PATIENT TEMPERATURE 36.8
[2024-05-09 14:20] LABS: ALANINE AMINOTRANSFERASE 25 U/L (12-78); ALBUMIN 3.4 G/DL (3.4-5.0); ALKALINE PHOSPHATASE 73 IU/L (46-116); ANION GAP 10 (8-16); ASPARTATE AMINO TRANSFERASE 30 U/L (10-37); BILIRUBIN,TOTAL 0.5 MG/DL (0.1-1.0); BLOOD UREA NITROGEN 54 MG/DL (7-18); CALCIUM 8.3 MG/DL (8.5-10.1); CHLORIDE 114 MMOL/L (99-107); CREATININE 2.16 MG/DL (0.60-1.10); GLUCOSE 108 MG/DL (70-104); SODIUM 142 MMOL/L (135-145); TOTAL CARBON DIOXIDE 18.5 MMOL/L (24-32); TOTAL PROTEIN 6.7 G/DL (6.4-8.2); eCRCL 27 ML/MIN; eGFR 31 ML/MIN
[2024-05-09 14:51] LABS: URINE AMPHETAMINE SCREEN NEGATIVE (Neg); URINE BARBITUATE SCREEN NEGATIVE (Neg); URINE BENZODIAZEPINES SCREEN NEGATIVE (Neg); URINE CANNABINOID SCREEN NEGATIVE (Neg); URINE COCAINE SCREEN NEGATIVE (Neg); URINE METHADONE SCREEN NEGATIVE (Neg); URINE OPIATE SCREEN NEGATIVE (Neg); URINE PHENCYCLIDINE SCREEN NEGATIVE (Neg)
[2024-05-09 20:00] VITALS: RESP 16; O2SAT 97
[2024-05-09] MEDS: docusate sodium 100mg/10ml UD cup PO SCH (20:00)
[2024-05-09] MEDS: haloperidol lactate 5mg/ml inj IM ONE (21:40)
[2024-05-09] MEDS: tamsulosin 0.4mg capsule PO SCH (22:18)
[2024-05-09] MEDS: mirtazapine 15mg tablet PO SCH (22:18)
[2024-05-10] MEDS: OLANZapine 2.5MG tablet PO STA (01:39)
[2024-05-10] MEDS: ziprasidone IM 20mg inj **IM only IM ONE (04:02)
[2024-05-10 06:00] VITALS: BP 131/57; PULSE 64; RESP 18; TEMP 97.8; O2SAT 92
[2024-05-10 06:25] LABS: BASOPHILS % (AUTO) 0.3 % (0-1); EOSINOPHILS # (AUTO) 0.1 X10'3 (0-0.9); EOSINOPHILS % (AUTO) 1.1 % (0-6); HEMATOCRIT 30.8 % (42.0-52.0); HEMOGLOBIN 10.4 g/dl (14.0-17.9); LYMPHOCYTES # (AUTO) 0.9 X10'3 (1.1-4.8); LYMPHOCYTES % (AUTO) 14.4 % (21-51); MEAN CORPUSCULAR HEMOGLOBIN 33.8 PG (27.0-31.0); MEAN CORPUSCULAR HGB CONC 33.8 g/dL (33.0-36.5); MEAN CORPUSCULAR VOLUME 100.1 FL (78-98); MEAN PLATELET VOLUME 8.4 FL (7.4-10.4); MONOCYTES # (AUTO) 0.6 X10'3 (0-0.9); MONOCYTES % (AUTO) 10.3 % (2-12); NEUTROPHILS # (AUTO) 4.5 X10'3 (1.8-7.7); NEUTROPHILS % (AUTO) 73.9 % (42-75); PLATELET COUNT 124 X10'3 (140-440); RED BLOOD COUNT 3.08 X10'6 (4.70-6.10); RED CELL DISTRIBUTION WIDTH 13.9 % (11.5-14.5); WHITE BLOOD COUNT 6.1 X10'3 (4.5-11.0)
[2024-05-10 06:36] LABS: ALANINE AMINOTRANSFERASE 27 U/L (12-78); ALBUMIN 3.2 G/DL (3.4-5.0); ALKALINE PHOSPHATASE 61 IU/L (46-116); ANION GAP 6 (8-16); ASPARTATE AMINO TRANSFERASE 56 U/L (10-37); BILIRUBIN,TOTAL 0.6 MG/DL (0.1-1.0); BLOOD UREA NITROGEN 37 MG/DL (7-18); BUN/CREATININE RATIO 20.2 (10.0-20.0); CALCIUM 8.1 MG/DL (8.5-10.1); CHLORIDE 111 MMOL/L (99-107); CHOL/HDL RATIO 1.6 (0.00-4.99); CHOLESTEROL 82 MG/DL (0-200); CREATININE 1.83 MG/DL (0.60-1.10); GLUCOSE 83 MG/DL (70-104); HDL CHOLESTEROL 51 MG/DL (35-60); LDL CHOLESTEROL 32 MG/DL (50-100); MAGNESIUM 1.8 MG/DL (1.5-2.4); POTASSIUM 3.8 MMOL/L (3.5-5.1); SODIUM 142 MMOL/L (135-145); TOTAL PROTEIN 6.3 G/DL (6.4-8.2); TRIGLYCERIDES 25 MG/DL (20-135); eCRCL 31 ML/MIN; eGFR 37 ML/MIN
[2024-05-10] MEDS: normal saline 1000ml 1,000 ML IV SCH (07:57)
[2024-05-10] MEDS: sodium bicarbonate 650mg tablet PO SCH (07:58)
[2024-05-10 10:34] VITALS: BP 127/49; PULSE 71; RESP 16; TEMP 98.6; O2SAT 96
[2024-05-10 11:10] LABS: BILIRUBIN,URINE NEGATIVE (Neg); CLARITY,URINE SLIGHTLY CLOUDY (Clear); COLOR,URINE YELLOW (Yellow); GLUCOSE, URINE >=1000 mg/dl (Neg); KETONES,URINE NEGATIVE (Neg); LEUKOCYTE ESTERASE ,URINE NEGATIVE (Neg); NITRITES, URINE NEGATIVE (Neg); OCCULT BLOOD,URINE LARGE (Neg); PH,URINE 8.5 (4.8-8.0); PROTEIN,URINE 30 mg/dl (Neg); UROBILINOGEN,URINE 0.2 E.U/dL (0.2-1.0)
[2024-05-10 11:21] LABS: UA COLLECTION TYPE FOLEY CATH
[2024-05-10 11:22] LABS: BACTERIA,URINE NONE SEEN /HPF (Neg); MUCUS STRANDS NONE SEEN /LPF (Neg); RBC,URINE 50-100 /HPF (0-2); SQUAMOUS EPITHELIAL CELL,UR FEW /LPF (FEW); WBC,URINE 0-4 /HPF (0-4)
[2024-05-10 12:51] LABS: FREE T4 (FREE THYROXINE) 2.04 NG/DL (0.73-1.40); THYROID STIMULATING HORMONE 1.35 ulU/ml (0.34-4.50)
[2024-05-10 18:00] VITALS: BP 138/60; PULSE 58; RESP 22; TEMP 98.6; O2SAT 92
[2024-05-10 20:00] VITALS: RESP 22; O2SAT 92
[2024-05-10] MEDS ORDERED: LAMOTRIGINE 300 MG PO SCH (20:00)
[2024-05-10 22:00] VITALS: BP 109/69; PULSE 43; RESP 17; TEMP 97.9; O2SAT 93
[2024-05-11 06:00] VITALS: BP 167/73; PULSE 62; RESP 13; TEMP 97.5; O2SAT 90
[2024-05-11 06:53] LABS: ANION GAP 12 (8-16); BLOOD UREA NITROGEN 34 MG/DL (7-18); BUN/CREATININE RATIO 22.5 (10.0-20.0); CHLORIDE 118 MMOL/L (99-107); CREATININE 1.51 MG/DL (0.60-1.10); GLUCOSE 113 MG/DL (70-104); SODIUM 146 MMOL/L (135-145); TOTAL CARBON DIOXIDE 16.2 MMOL/L (24-32); eCRCL 38 ML/MIN; eGFR 46 ML/MIN
[2024-05-11 06:54] LABS: ALANINE AMINOTRANSFERASE 25 U/L (12-78); ALBUMIN 2.9 G/DL (3.4-5.0); ALKALINE PHOSPHATASE 64 IU/L (46-116); ASPARTATE AMINO TRANSFERASE 62 U/L (10-37); BILIRUBIN,TOTAL 0.7 MG/DL (0.1-1.0); TOTAL PROTEIN 5.8 G/DL (6.4-8.2)
[2024-05-11 07:13] LABS: BASOPHILS % (AUTO) 0.3 % (0-1); EOSINOPHILS # (AUTO) 0.1 X10'3 (0-0.9); EOSINOPHILS % (AUTO) 1.6 % (0-6); HEMATOCRIT 28.5 % (42.0-52.0); HEMOGLOBIN 9.6 g/dl (14.0-17.9); LYMPHOCYTES # (AUTO) 0.8 X10'3 (1.1-4.8); LYMPHOCYTES % (AUTO) 15.7 % (21-51); MEAN CORPUSCULAR HEMOGLOBIN 33.9 PG (27.0-31.0); MEAN CORPUSCULAR HGB CONC 33.5 g/dL (33.0-36.5); MEAN PLATELET VOLUME 8.6 FL (7.4-10.4); MONOCYTES # (AUTO) 0.4 X10'3 (0-0.9); MONOCYTES % (AUTO) 8.7 % (2-12); NEUTROPHILS # (AUTO) 3.8 X10'3 (1.8-7.7); NEUTROPHILS % (AUTO) 73.7 % (42-75); PLATELET COUNT 120 X10'3 (140-440); RED BLOOD COUNT 2.82 X10'6 (4.70-6.10); WHITE BLOOD COUNT 5.1 X10'3 (4.5-11.0)
[2024-05-11] MEDS: ESLICARBAZEPINE ACETATE 400 MG PO SCH (08:00)
[2024-05-11] MEDS: famotidine 20mg tablet PO SCH (08:00)
[2024-05-11 08:30] VITALS: RESP 18; O2SAT 96
[2024-05-11] MEDS: folic acid/vitamin B complex w/vitamin C 0.8mg tablet PO SCH (09:23)
[2024-05-11 10:00] VITALS: BP 151/65; PULSE 59; RESP 16; TEMP 97.7; O2SAT 100
[2024-05-11] MEDS ORDERED: sodium bicarbonate (8.4%) inj. 50 MEQ in dextrose 5%-water 1,000 ML IV SCH (11:15)
[2024-05-11] MEDS ORDERED: DEXTROSE 5% IV SCH (12:50)
[2024-05-11] MEDS ORDERED: SODIUM BICARBONATE IV SCH (12:50)
[2024-05-11] MEDS ORDERED: WATER IV SCH (12:50)
[2024-05-11] MEDS: sodium bicarbonate (8.4%) inj. 150 MEQ in dextrose 5%-water 1,000 ML IV SCH (13:31)
[2024-05-11 18:30] VITALS: BP 143/90; PULSE 43; RESP 18; TEMP 96.6; O2SAT 100
[2024-05-11] MEDS: polyethylene glycol 3350 17gm powd pack PO SCH (21:00)
[2024-05-11 22:00] VITALS: BP 150/54; PULSE 83; RESP 16; TEMP 97.2; O2SAT 96
[2024-05-12] VITALS (7 sets, daily range): BP systolic 112–158; BP diastolic 47–64; PULSE 42–65; RESP 16–20; TEMP 97.4–97.9; O2SAT 98–100
[2024-05-12 06:03] LABS: BASOPHILS % (AUTO) 0.6 % (0-1); EOSINOPHILS # (AUTO) 0.2 X10'3 (0-0.9); EOSINOPHILS % (AUTO) 5.3 % (0-6); HEMATOCRIT 28.8 % (42.0-52.0); HEMOGLOBIN 9.7 g/dl (14.0-17.9); LYMPHOCYTES # (AUTO) 0.8 X10'3 (1.1-4.8); LYMPHOCYTES % (AUTO) 18.3 % (21-51); MEAN CORPUSCULAR HEMOGLOBIN 33.6 PG (27.0-31.0); MEAN CORPUSCULAR HGB CONC 33.8 g/dL (33.0-36.5); MEAN CORPUSCULAR VOLUME 99.4 FL (78-98); MEAN PLATELET VOLUME 8.9 FL (7.4-10.4); MONOCYTES # (AUTO) 0.4 X10'3 (0-0.9); NEUTROPHILS # (AUTO) 2.8 X10'3 (1.8-7.7); NEUTROPHILS % (AUTO) 65.8 % (42-75); PLATELET COUNT 128 X10'3 (140-440); RED CELL DISTRIBUTION WIDTH 14.1 % (11.5-14.5); WHITE BLOOD COUNT 4.3 X10'3 (4.5-11.0)
[2024-05-12 06:34] LABS: ALANINE AMINOTRANSFERASE 24 U/L (12-78); ALKALINE PHOSPHATASE 78 IU/L (46-116); ANION GAP 10 (8-16); ASPARTATE AMINO TRANSFERASE 48 U/L (10-37); BILIRUBIN,TOTAL 0.5 MG/DL (0.1-1.0); BLOOD UREA NITROGEN 34 MG/DL (7-18); BUN/CREATININE RATIO 21.8 (10.0-20.0); CALCIUM 8.6 MG/DL (8.5-10.1); CHLORIDE 111 MMOL/L (99-107); CREATININE 1.56 MG/DL (0.60-1.10); GLUCOSE 188 MG/DL (70-104); MAGNESIUM 2.2 MG/DL (1.5-2.4); POTASSIUM 3.6 MMOL/L (3.5-5.1); SODIUM 143 MMOL/L (135-145); TOTAL CARBON DIOXIDE 22.2 MMOL/L (24-32); TOTAL PROTEIN 6.1 G/DL (6.4-8.2); eCRCL 37 ML/MIN; eGFR 45 ML/MIN
[2024-05-12] MEDS: lactulose 20gm/30ml cup PO SCH (12:39)
[2024-05-13 05:52] LABS: BASOPHILS % (AUTO) 0.5 % (0-1); EOSINOPHILS # (AUTO) 0.3 X10'3 (0-0.9); EOSINOPHILS % (AUTO) 9.1 % (0-6); HEMATOCRIT 33.8 % (42.0-52.0); HEMOGLOBIN 11.3 g/dl (14.0-17.9); LYMPHOCYTES # (AUTO) 0.9 X10'3 (1.1-4.8); LYMPHOCYTES % (AUTO) 29.8 % (21-51); MEAN CORPUSCULAR HEMOGLOBIN 33.3 PG (27.0-31.0); MEAN CORPUSCULAR HGB CONC 33.4 g/dL (33.0-36.5); MEAN CORPUSCULAR VOLUME 99.9 FL (78-98); MEAN PLATELET VOLUME 8.1 FL (7.4-10.4); MONOCYTES # (AUTO) 0.3 X10'3 (0-0.9); MONOCYTES % (AUTO) 9.3 % (2-12); NEUTROPHILS # (AUTO) 1.5 X10'3 (1.8-7.7); NEUTROPHILS % (AUTO) 51.3 % (42-75); PLATELET COUNT 139 X10'3 (140-440); RED BLOOD COUNT 3.38 X10'6 (4.70-6.10); RED CELL DISTRIBUTION WIDTH 14.2 % (11.5-14.5)
[2024-05-13 06:07] LABS: ALANINE AMINOTRANSFERASE 27 U/L (12-78); ALBUMIN/GLOBULIN RATIO 0.9 (1.1-1.5); ALKALINE PHOSPHATASE 66 IU/L (46-116); ANION GAP 6 (8-16); ASPARTATE AMINO TRANSFERASE 45 U/L (10-37); BILIRUBIN,TOTAL 0.4 MG/DL (0.1-1.0); BLOOD UREA NITROGEN 24 MG/DL (7-18); BUN/CREATININE RATIO 13.1 (10.0-20.0); CALCIUM 8.6 MG/DL (8.5-10.1); CHLORIDE 110 MMOL/L (99-107); CREATININE 1.83 MG/DL (0.60-1.10); GLUCOSE 158 MG/DL (70-104); MAGNESIUM 2.1 MG/DL (1.5-2.4); POTASSIUM 3.6 MMOL/L (3.5-5.1); SODIUM 142 MMOL/L (135-145); TOTAL CARBON DIOXIDE 25.7 MMOL/L (24-32); TOTAL PROTEIN 6.4 G/DL (6.4-8.2); eCRCL 31 ML/MIN; eGFR 37 ML/MIN
[2024-05-13] MEDS: normal saline 500ml IV soln 500 ML IV ONE (07:30)
[2024-05-13 08:00] VITALS: RESP 16; O2SAT 100
[2024-05-13 08:23] VITALS: BP_SYST 141; PULSE 57
[2024-05-13] MEDS: atorvastatin 20mg tablet PO SCH (08:28)
[2024-05-13 10:02] LABS: PLATELET ESTIMATE DECREASED; POIKILOCYTOSIS FEW; TOTAL CELLS COUNTED 100
[2024-05-13] MEDS ORDERED: tamsulosin capsule PO (11:14)
[2024-05-13] MEDS ORDERED: ATOR20TA66 PO (11:14)
[2024-05-13] MEDS ORDERED: OMEG1CAP46 PO (11:14)
== END 2024-05-13 17:46 | disposition home or self-care (01) | DRG 52 ==
LOC: ER 22:17 → ED HOLD 05-09 02:28 → ORTHO 4S 05-09 07:40
PROVIDERS: ADMIT Internal Medicine Sleep Medicine; ATTEND Family Medicine
DX: G93.41 Metabolic encephalopathy (principal); N17.9 Acute kidney failure, unspecified; E11.22 Type 2 diabetes mellitus with diabetic chronic kidney disease; F03.90 Unspecified dementia, unspecified severity, without behavioral disturbance, psychotic disturbance, mood disturbance, and anxiety; E03.9 Hypothyroidism, unspecified; Z20.822 Contact with and (suspected) exposure to COVID-19; E78.00 Pure hypercholesterolemia, unspecified; D53.9 Nutritional anemia, unspecified; N39.0 Urinary tract infection, site not specified; H54.8 Legal blindness, as defined in USA; G40.909 Epilepsy, unspecified, not intractable, without status epilepticus; F41.9 Anxiety disorder, unspecified; G89.29 Other chronic pain; I12.9 Hypertensive chronic kidney disease with stage 1 through stage 4 chronic kidney disease, or unspecified chronic kidney disease; N18.30 Chronic kidney disease, stage 3 unspecified; K21.9 Gastro-esophageal reflux disease without esophagitis; Z88.5 Allergy status to narcotic agent; Z79.82 Long term (current) use of aspirin; Z79.899 Other long term (current) drug therapy; Z88.8 Allergy status to other drugs, medicaments and biological substances; Z89.522 Acquired absence of left knee
CPT/HCPCS: 36415; 36600; 70450; 71045; 80053; 80061; 80305; 81001; 82140; 82570; 82607; 82803; 82948; 83036; 83605; 83690; 83735; 83880; 84133; 84145; 84300; 84439; 84443; 84484; 85007; 85018; 85025; 87040; 87081; 87811; 92508; 92616; 93005; 93971; 99285; A4314; A5200; A6213; G0378; J0131; J0696; J1630; J1644; J1815; J2060; J3486; J3490; J7030; J7070

== ENCOUNTER 2024-06-08 12:25 | Inpatient (IN) | payer MEDICAID ==
[~2024-06-08] VITALS: Ht 160 cm; Wt 52.0 kg
[~2024-06-08 12:25] MED LIST changes: +ATOR20TA66 PO; -DAPA5TAB PO; -DOXY100C77 PO; +ESLI200T PO; +LAMO150T6 PO; -LAMO300T2 PO; -OMEG-166 PO; +OMEG1CAP46 PO; -PRAV20TA4 PO; -SODI650T29 PO; +tamsulosin capsule PO
[2024-06-08] MEDS: haloperidol lactate 5mg/ml inj IM ONE (12:49)
[2024-06-08] MEDS: diphenhydrAMINE 50 mg/ml inj IM ONE (12:50)
[2024-06-08] MEDS: LORazepam 2 mg/ml vial IM ONE ×2 (12:50→19:30)
[2024-06-08] MEDS: normal saline 1000ml 1,000 ML IV ONE (13:51)
[2024-06-08 14:19] LABS: ALANINE AMINOTRANSFERASE 47 U/L (12-78); ALBUMIN 4.2 G/DL (3.4-5.0); ALBUMIN/GLOBULIN RATIO 1.1 (1.1-1.5); ALKALINE PHOSPHATASE 72 IU/L (46-116); ANION GAP 17 (8-16); ASPARTATE AMINO TRANSFERASE 51 U/L (10-37); BILIRUBIN,TOTAL 0.5 MG/DL (0.1-1.0); BLOOD UREA NITROGEN 81 MG/DL (7-18); BUN/CREATININE RATIO 20.6 (10.0-20.0); CALCIUM 9.8 MG/DL (8.5-10.1); CHLORIDE 106 MMOL/L (99-107); CREATININE 3.93 MG/DL (0.60-1.10); GLUCOSE 108 MG/DL (70-104); POTASSIUM 4.8 MMOL/L (3.5-5.1); SODIUM 144 MMOL/L (135-145); TOTAL CARBON DIOXIDE 21.1 MMOL/L (24-32); TOTAL PROTEIN 8.1 G/DL (6.4-8.2); eCRCL 13 ML/MIN; eGFR 15 ML/MIN
[2024-06-08 14:27] LABS: BASOPHILS % (AUTO) 0.5 % (0-1); EOSINOPHILS % (AUTO) 0.7 % (0-6); HEMATOCRIT 34.3 % (42.0-52.0); HEMOGLOBIN 11.5 g/dl (14.0-17.9); LYMPHOCYTES # (AUTO) 0.6 X10'3 (1.1-4.8); LYMPHOCYTES % (AUTO) 11.9 % (21-51); MEAN CORPUSCULAR HEMOGLOBIN 34.2 PG (27.0-31.0); MEAN CORPUSCULAR HGB CONC 33.6 g/dL (33.0-36.5); MEAN CORPUSCULAR VOLUME 101.8 FL (78-98); MEAN PLATELET VOLUME 8.9 FL (7.4-10.4); MONOCYTES # (AUTO) 0.4 X10'3 (0-0.9); MONOCYTES % (AUTO) 8.8 % (2-12); NEUTROPHILS # (AUTO) 3.6 X10'3 (1.8-7.7); NEUTROPHILS % (AUTO) 78.1 % (42-75); PLATELET COUNT 161 X10'3 (140-440); RED BLOOD COUNT 3.37 X10'6 (4.70-6.10); RED CELL DISTRIBUTION WIDTH 14.5 % (11.5-14.5); WHITE BLOOD COUNT 4.7 X10'3 (4.5-11.0)
[2024-06-08 14:28] LABS: BILIRUBIN,URINE NEGATIVE (Neg); CLARITY,URINE SLIGHTLY CLOUDY (Clear); COLOR,URINE YELLOW (Yellow); GLUCOSE, URINE >=1000 mg/dl (Neg); KETONES,URINE NEGATIVE (Neg); LEUKOCYTE ESTERASE ,URINE NEGATIVE (Neg); NITRITES, URINE NEGATIVE (Neg); OCCULT BLOOD,URINE NEGATIVE (Neg); PH,URINE 7.5 (4.8-8.0); PROTEIN,URINE TRACE mg/dl (Neg); UROBILINOGEN,URINE 0.2 E.U/dL (0.2-1.0)
[2024-06-08 14:32] LABS: UA COLLECTION TYPE STRAIGHT CATH
[2024-06-08 14:37] LABS: BACTERIA,URINE FEW /HPF (Neg); MUCUS STRANDS NONE SEEN /LPF (Neg); RBC,URINE 0-2 /HPF (0-2); RENAL CELLS, URINE FEW /HPF; SQUAMOUS EPITHELIAL CELL,UR NONE SEEN /LPF (FEW)
[2024-06-08 14:38] LABS: AMORPHOUS URATES 2+
[2024-06-08] MEDS: CefTRIAXone/D5W-Rocephin 1gm 50 ML IV ONE (14:48)
[2024-06-08] MEDS ORDERED: magnesium Cl slow-release 64mg tablet PO PRN (16:00)
[2024-06-08] MEDS ORDERED: magnesium hydroxide 30ml (MOM) UD suspension PO PRN (16:00)
[2024-06-08] MEDS ORDERED: potassium Cl 20 mEq SR tablet PO PRN ×2 (16:00)
[2024-06-08] MEDS ORDERED: magnesium sulf-water 4G/100mL 100 ML IV PRN (16:00)
[2024-06-08] MEDS ORDERED: ondansetron/PF 4mg/2ml inj IV PRN (16:00)
[2024-06-08] MEDS ORDERED: potassium Cl 40MEQ/1/2NS 520ml 520 ML IV PRN (16:00)
[2024-06-08] MEDS ORDERED: magnesium sulf-water 2g/50mL 50 ML IV PRN (16:00)
[2024-06-08] MEDS ORDERED: mag hydrox/Alum hydrox/simeth 30ml oral suspension PO PRN (16:00)
[2024-06-08] MEDS: normal saline 1000ml 1,000 ML IV SCH (16:49)
[2024-06-08] MEDS ORDERED: glucagon, human recombinant 1mg kit SUBCUT PRN (17:05)
[2024-06-08] MEDS ORDERED: DEXTROSE 15 GM of carb/4 tabs (each vial/BOTTLE has 4 tablets) PO PRN ×2 (17:05)
[2024-06-08] MEDS: INSULIN LISPRO 100 UNIT/ML INSULN.PEN MULTI-DOSE SQ SCH ×2 (18:00→21:00)
[2024-06-08] MEDS: dextrose 50%-water 50ml dispensing syringe IV PRN (18:08)
[2024-06-08] MEDS: K and/or MAG REPLACEMENT MC SCH (19:22)
[2024-06-08] MEDS: docusate sod 100mg capsule PO SCH (19:36)
[2024-06-08] MEDS: heparin, porcine 5000 units/ml vial SQ SCH (20:54)
[2024-06-08] MEDS: insulin glargine (Lantus) pen - multi-dose SQ SCH (21:00)
[2024-06-09] MEDS: LORazepam 2 mg/ml vial IM ONE ×2 (01:47→20:50)
[2024-06-09] MEDS: acetaminophen 1,000mg/100ml IV 100 ML IV ONE (01:48)
[2024-06-09 03:36] LABS: BASOPHILS % (AUTO) 0.4 % (0-1); EOSINOPHILS # (AUTO) 0.1 X10'3 (0-0.9); EOSINOPHILS % (AUTO) 1.7 % (0-6); HEMATOCRIT 29.5 % (42.0-52.0); HEMOGLOBIN 9.5 g/dl (14.0-17.9); LYMPHOCYTES # (AUTO) 0.9 X10'3 (1.1-4.8); LYMPHOCYTES % (AUTO) 19.9 % (21-51); MEAN CORPUSCULAR HEMOGLOBIN 33.3 PG (27.0-31.0); MEAN CORPUSCULAR HGB CONC 32.1 g/dL (33.0-36.5); MEAN CORPUSCULAR VOLUME 103.7 FL (78-98); MEAN PLATELET VOLUME 9.3 FL (7.4-10.4); MONOCYTES # (AUTO) 0.5 X10'3 (0-0.9); MONOCYTES % (AUTO) 10.7 % (2-12); NEUTROPHILS # (AUTO) 3.2 X10'3 (1.8-7.7); NEUTROPHILS % (AUTO) 67.3 % (42-75); PLATELET COUNT 105 X10'3 (140-440); RED BLOOD COUNT 2.85 X10'6 (4.70-6.10); RED CELL DISTRIBUTION WIDTH 15.1 % (11.5-14.5); WHITE BLOOD COUNT 4.7 X10'3 (4.5-11.0)
[2024-06-09 03:52] LABS: ALANINE AMINOTRANSFERASE 40 U/L (12-78); ALKALINE PHOSPHATASE 33 IU/L (46-116); ANION GAP 9 (8-16); ASPARTATE AMINO TRANSFERASE 145 U/L (10-37); BILIRUBIN,TOTAL 0.2 MG/DL (0.1-1.0); BLOOD UREA NITROGEN 51 MG/DL (7-18); BUN/CREATININE RATIO 24.4 (10.0-20.0); CHLORIDE 125 MMOL/L (99-107); CREATININE 2.09 MG/DL (0.60-1.10); MAGNESIUM 2.2 MG/DL (1.5-2.4); SODIUM 150 MMOL/L (135-145); TOTAL CARBON DIOXIDE 15.7 MMOL/L (24-32); TOTAL PROTEIN 4.1 G/DL (6.4-8.2); eCRCL 25 ML/MIN; eGFR 32 ML/MIN
[2024-06-09 03:54] LABS: POTASSIUM 3.4 MMOL/L (3.5-5.1)
[2024-06-09 04:19] LABS: CALCIUM 5.8 MG/DL (8.5-10.1); GLUCOSE 35 MG/DL (70-104)
[2024-06-09] MEDS: dextrose 50%-water 50ml dispensing syringe IV PRN (04:19)
[2024-06-09 07:15] VITALS: BP 128/59; PULSE 58; RESP 24; TEMP 97.5; O2SAT 97
[2024-06-09 08:00] VITALS: RESP 24; O2SAT 97
[2024-06-09] MEDS ORDERED: ESLICARBAZEPINE ACETATE PO SCH (08:00)
[2024-06-09] MEDS ORDERED: ESLICARBAZEPINE ACETATE 200 MG PO SCH ×2 (08:00→13:29)
[2024-06-09] MEDS: docusate sod 100mg capsule PO SCH (08:00)
[2024-06-09] MEDS ORDERED: dextrose 5%-water 1,000 ML IV SCH (08:15)
[2024-06-09 08:40] LABS: ALANINE AMINOTRANSFERASE 71 U/L (12-78); ALBUMIN 3.2 G/DL (3.4-5.0); ALBUMIN/GLOBULIN RATIO 1.1 (1.1-1.5); ALKALINE PHOSPHATASE 50 IU/L (46-116); ANION GAP 9 (8-16); ASPARTATE AMINO TRANSFERASE 254 U/L (10-37); BILIRUBIN,TOTAL 0.3 MG/DL (0.1-1.0); BLOOD UREA NITROGEN 60 MG/DL (7-18); BUN/CREATININE RATIO 21.9 (10.0-20.0); CALCIUM 7.9 MG/DL (8.5-10.1); CHLORIDE 119 MMOL/L (99-107); CREATININE 2.74 MG/DL (0.60-1.10); POTASSIUM 4.2 MMOL/L (3.5-5.1); SODIUM 150 MMOL/L (135-145); TOTAL CARBON DIOXIDE 21.9 MMOL/L (24-32); TOTAL PROTEIN 6.2 G/DL (6.4-8.2); eCRCL 19 ML/MIN; eGFR 23 ML/MIN
[2024-06-09 08:50] LABS: GLUCOSE 50 MG/DL (70-104)
[2024-06-09] MEDS: OMEGA-3/DHA/EPA/FISH OIL 1 EACH CAPSULE.DR PO SCH (09:03)
[2024-06-09] MEDS: aspirin 81mg, enteric-coated 1 TAB TABLET.DR PO SCH (09:03)
[2024-06-09] MEDS: ascorbic acid 500mg tablet PO SCH (09:04)
[2024-06-09] MEDS: FLUoxetine 10mg capsule PO SCH (09:04)
[2024-06-09] MEDS: lamoTRIgine 100mg tablet PO SCH (09:05)
[2024-06-09] MEDS: atorvastatin 20mg tablet PO SCH (09:05)
[2024-06-09] MEDS: levoTHYROXINE 25mcg tablet PO SCH (09:05)
[2024-06-09] MEDS: calcium carbonate 500mg chew tablet PO SCH (09:06)
[2024-06-09] MEDS: linagliptin 5mg tablet PO SCH (09:06)
[2024-06-09 09:12] LABS: FREE T4 (FREE THYROXINE) 1.62 NG/DL (0.73-1.40)
[2024-06-09] MEDS: topiramate 100mg tablet PO SCH (09:12)
[2024-06-09] MEDS: CefTRIAXone 2gm/D5W 50ml BAG 50 ML IV SCH (09:13)
[2024-06-09 09:19] LABS: APTT 27 SECONDS (22-32); PROTHROMBIN TIME 10.5 SECONDS (9.0-12.0)
[2024-06-09] MEDS: famotidine 20mg tablet PO SCH (10:19)
[2024-06-09] MEDS: folic acid 1mg tablet PO SCH (10:23)
[2024-06-09] MEDS: SODIUM BICARBONATE 150MEQ IN D5W 1,000 ML IV SCH (10:23)
[2024-06-09] MEDS: LORazepam 0.5 MG tablet PO ONE (13:05)
[2024-06-09 15:00] VITALS: BP 136/67; PULSE 68; RESP 18; TEMP 97.7; O2SAT 99
[2024-06-09] MEDS ORDERED: NUT.TX.GLUC.INTOLER,LAC-FR,SOY (GLUCERNA) 237 ML PO SCH (15:30)
[2024-06-09 17:32] LABS: ALBUMIN 3.2 G/DL (3.4-5.0); ANION GAP 8 (8-16); BLOOD UREA NITROGEN 47 MG/DL (7-18); BUN/CREATININE RATIO 19.7 (10.0-20.0); CREATININE 2.39 MG/DL (0.60-1.10); GLUCOSE 84 MG/DL (70-104); POTASSIUM 4.1 MMOL/L (3.5-5.1); SODIUM 150 MMOL/L (135-145); TOTAL CARBON DIOXIDE 22.6 MMOL/L (24-32); eCRCL 22 ML/MIN; eGFR 27 ML/MIN
[2024-06-09 17:52] LABS: CHLORIDE 119 MMOL/L (99-107)
[2024-06-09] MEDS: NUT.TX.GLUC.INTOLER,LAC-FR,SOY (GLUCERNA) 237 ML PO SCH (18:00)
[2024-06-09 20:00] VITALS: RESP 18; O2SAT 98
[2024-06-09 22:00] VITALS: BP 119/65; PULSE 70; RESP 16; TEMP 97.5; O2SAT 98
[2024-06-09] MEDS: FONDAPARINUX (ARIXTRA) 7.5 MG/0.6 ML SYRINGE SQ SCH (22:21)
[2024-06-09] MEDS: tamsulosin 0.4mg capsule PO SCH (22:22)
[2024-06-09] MEDS: mirtazapine 15mg tablet PO SCH (22:32)
[2024-06-10] VITALS (8 sets, daily range): BP systolic 110–143; BP diastolic 41–65; PULSE 62–87; RESP 15–27; TEMP 96.7–97.3; O2SAT 96–98
[2024-06-10] MEDS: ESLICARBAZEPINE ACETATE 200 MG PO SCH (00:38)
[2024-06-10] MEDS: LidoCAINE 2% Topical Jelly 11mL syringe (UROJET) TOP ONE (05:55)
[2024-06-10 08:27] LABS: BASOPHILS % (AUTO) 0.6 % (0-1); EOSINOPHILS # (AUTO) 0.2 X10'3 (0-0.9); EOSINOPHILS % (AUTO) 8.2 % (0-6); HEMATOCRIT 31.6 % (42.0-52.0); HEMOGLOBIN 10.2 g/dl (14.0-17.9); LYMPHOCYTES # (AUTO) 1.1 X10'3 (1.1-4.8); LYMPHOCYTES % (AUTO) 41.5 % (21-51); MEAN CORPUSCULAR HEMOGLOBIN 33.5 PG (27.0-31.0); MEAN CORPUSCULAR HGB CONC 32.3 g/dL (33.0-36.5); MEAN CORPUSCULAR VOLUME 103.6 FL (78-98); MEAN PLATELET VOLUME 8.5 FL (7.4-10.4); MONOCYTES # (AUTO) 0.3 X10'3 (0-0.9); MONOCYTES % (AUTO) 11.1 % (2-12); NEUTROPHILS % (AUTO) 38.6 % (42-75); PLATELET COUNT 103 X10'3 (140-440); RED BLOOD COUNT 3.05 X10'6 (4.70-6.10); RED CELL DISTRIBUTION WIDTH 15.5 % (11.5-14.5); WHITE BLOOD COUNT 2.7 X10'3 (4.5-11.0)
[2024-06-10 08:37] LABS: ALANINE AMINOTRANSFERASE 80 U/L (12-78); ALBUMIN 3.1 G/DL (3.4-5.0); ALBUMIN/GLOBULIN RATIO 0.9 (1.1-1.5); ALKALINE PHOSPHATASE 45 IU/L (46-116); ANION GAP 9 (8-16); ASPARTATE AMINO TRANSFERASE 263 U/L (10-37); BILIRUBIN,TOTAL 0.3 MG/DL (0.1-1.0); BLOOD UREA NITROGEN 32 MG/DL (7-18); BUN/CREATININE RATIO 15.7 (10.0-20.0); CALCIUM 8.1 MG/DL (8.5-10.1); CHLORIDE 113 MMOL/L (99-107); CREATININE 2.04 MG/DL (0.60-1.10); GLUCOSE 199 MG/DL (70-104); MAGNESIUM 2.7 MG/DL (1.5-2.4); POTASSIUM 4.2 MMOL/L (3.5-5.1); SODIUM 147 MMOL/L (135-145); TOTAL CARBON DIOXIDE 25.4 MMOL/L (24-32); TOTAL PROTEIN 6.4 G/DL (6.4-8.2); eCRCL 26 ML/MIN; eGFR 33 ML/MIN
[2024-06-10 08:44] LABS: ACANTHOCYTES FEW; ELLIPTOCYTES FEW; PLATELET ESTIMATE DECREASED; TOTAL CELLS COUNTED 100
[2024-06-10] MEDS: LORazepam 0.5 MG tablet PO PRN (10:28)
[2024-06-10] MEDS: dextrose 5%-water 1,000 ML IV SCH (10:33)
[2024-06-10] MEDS: sodium bicarbonate 650mg tablet PO SCH (12:41)
[2024-06-10] MEDS: haloperidol lactate 5mg/ml inj IM ONE (14:25)
[2024-06-10 18:25] LABS: TOTAL PROTEIN,URINE RANDOM 89.9 MG/DL
[2024-06-10] MEDS: ziprasidone IM 20mg inj **IM only IM ONE (22:40)
[2024-06-11] VITALS (7 sets, daily range): BP systolic 112–164; BP diastolic 54–90; PULSE 68–106; RESP 16–20; TEMP 97.2–98.6; O2SAT 96–100
[2024-06-11] MEDS: haloperidol lactate 5mg/ml inj IVH ONE (00:05)
[2024-06-11] MEDS: haloperidol lactate 5mg/ml inj IM ONE ×2 (01:30→19:54)
[2024-06-11 07:36] LABS: ALANINE AMINOTRANSFERASE 69 U/L (12-78); ALBUMIN 2.8 G/DL (3.4-5.0); ALKALINE PHOSPHATASE 46 IU/L (46-116); ANION GAP 6 (8-16); ASPARTATE AMINO TRANSFERASE 185 U/L (10-37); BILIRUBIN,TOTAL 0.4 MG/DL (0.1-1.0); BLOOD UREA NITROGEN 20 MG/DL (7-18); BUN/CREATININE RATIO 10.2 (10.0-20.0); CALCIUM 7.6 MG/DL (8.5-10.1); CHLORIDE 110 MMOL/L (99-107); CREATININE 1.96 MG/DL (0.60-1.10); GLUCOSE 182 MG/DL (70-104); MAGNESIUM 2.1 MG/DL (1.5-2.4); POTASSIUM 3.7 MMOL/L (3.5-5.1); SODIUM 141 MMOL/L (135-145); TOTAL CARBON DIOXIDE 24.7 MMOL/L (24-32); TOTAL PROTEIN 5.6 G/DL (6.4-8.2); eCRCL 27 ML/MIN; eGFR 34 ML/MIN
[2024-06-11 07:42] LABS: BASOPHILS % (AUTO) 0.6 % (0-1); EOSINOPHILS # (AUTO) 0.2 X10'3 (0-0.9); EOSINOPHILS % (AUTO) 8.7 % (0-6); HEMATOCRIT 27.4 % (42.0-52.0); HEMOGLOBIN 8.9 g/dl (14.0-17.9); LYMPHOCYTES # (AUTO) 0.7 X10'3 (1.1-4.8); LYMPHOCYTES % (AUTO) 33.1 % (21-51); MEAN CORPUSCULAR HEMOGLOBIN 32.9 PG (27.0-31.0); MEAN CORPUSCULAR HGB CONC 32.4 g/dL (33.0-36.5); MEAN CORPUSCULAR VOLUME 101.4 FL (78-98); MEAN PLATELET VOLUME 8.4 FL (7.4-10.4); MONOCYTES # (AUTO) 0.3 X10'3 (0-0.9); MONOCYTES % (AUTO) 12.3 % (2-12); NEUTROPHILS % (AUTO) 45.3 % (42-75); PLATELET COUNT 90 X10'3 (140-440); RED CELL DISTRIBUTION WIDTH 14.8 % (11.5-14.5); WHITE BLOOD COUNT 2.2 X10'3 (4.5-11.0)
[2024-06-11 08:17] LABS: OSMOLALITY 297 MOSM/K (280-300)
[2024-06-11 08:56] LABS: PLATELET ESTIMATE DECREASED; TOTAL CELLS COUNTED 100
[2024-06-11 08:57] LABS: ACANTHOCYTES FEW; ELLIPTOCYTES FEW
[2024-06-11] MEDS: haloperidol lactate 5mg/ml inj IM PRN ×2 (10:25→16:30)
[2024-06-11] MEDS: predniSONE 20 mg tablet PO SCH (13:10)
[2024-06-11] MEDS: LORazepam 1 MG tablet PO PRN ×2 (14:35→20:43)
[2024-06-11] MEDS: QUEtiapine 25mg tablet PO ONE (20:46)
[2024-06-12] VITALS (8 sets, daily range): BP systolic 135–158; BP diastolic 62–87; PULSE 45–104; RESP 9–22; TEMP 97–97.8; O2SAT 97–100
[2024-06-12] MEDS: LORazepam 2 mg/ml vial IV PRN (00:34)
[2024-06-12 07:30] LABS: ALANINE AMINOTRANSFERASE 75 U/L (12-78); ALBUMIN 3.2 G/DL (3.4-5.0); ALBUMIN/GLOBULIN RATIO 0.9 (1.1-1.5); ALKALINE PHOSPHATASE 52 IU/L (46-116); ANION GAP 11 (8-16); ASPARTATE AMINO TRANSFERASE 171 U/L (10-37); BILIRUBIN,TOTAL 0.4 MG/DL (0.1-1.0); BLOOD UREA NITROGEN 19 MG/DL (7-18); CALCIUM 8.4 MG/DL (8.5-10.1); CHLORIDE 110 MMOL/L (99-107); GLUCOSE 130 MG/DL (70-104); MAGNESIUM 2.1 MG/DL (1.5-2.4); POTASSIUM 4.8 MMOL/L (3.5-5.1); SODIUM 142 MMOL/L (135-145); TOTAL CARBON DIOXIDE 20.8 MMOL/L (24-32); TOTAL PROTEIN 6.6 G/DL (6.4-8.2); eCRCL 28 ML/MIN; eGFR 36 ML/MIN
[2024-06-12 07:34] LABS: BASOPHILS % (AUTO) 0.3 % (0-1); HEMATOCRIT 30.6 % (42.0-52.0); HEMOGLOBIN 10.1 g/dl (14.0-17.9); LYMPHOCYTES # (AUTO) 0.6 X10'3 (1.1-4.8); LYMPHOCYTES % (AUTO) 18.4 % (21-51); MEAN CORPUSCULAR HEMOGLOBIN 33.6 PG (27.0-31.0); MEAN CORPUSCULAR HGB CONC 33.1 g/dL (33.0-36.5); MEAN CORPUSCULAR VOLUME 101.7 FL (78-98); MEAN PLATELET VOLUME 8.6 FL (7.4-10.4); MONOCYTES # (AUTO) 0.4 X10'3 (0-0.9); MONOCYTES % (AUTO) 10.3 % (2-12); NEUTROPHILS # (AUTO) 2.4 X10'3 (1.8-7.7); PLATELET COUNT 98 X10'3 (140-440); RED BLOOD COUNT 3.01 X10'6 (4.70-6.10); RED CELL DISTRIBUTION WIDTH 14.7 % (11.5-14.5); WHITE BLOOD COUNT 3.4 X10'3 (4.5-11.0)
[2024-06-12 09:52] LABS: OSMOLALITY 299 MOSM/K (280-300)
[2024-06-12] MEDS: acetaminophen 325mg tablet PO PRN (17:06)
[2024-06-12] MEDS: QUEtiapine 25mg tablet PO SCH (21:37)
[2024-06-12] MEDS: LORazepam 2 mg/ml vial IV ONE (22:23)
[2024-06-13] VITALS (7 sets, daily range): BP systolic 120–147; BP diastolic 68–85; PULSE 76–103; RESP 15–18; TEMP 97.3–98.3; O2SAT 96–100
[2024-06-13 06:53] LABS: BASOPHILS % (AUTO) 0.8 % (0-1); EOSINOPHILS # (AUTO) 0.2 X10'3 (0-0.9); EOSINOPHILS % (AUTO) 7.9 % (0-6); HEMATOCRIT 30.7 % (42.0-52.0); HEMOGLOBIN 10.4 g/dl (14.0-17.9); LYMPHOCYTES # (AUTO) 0.8 X10'3 (1.1-4.8); LYMPHOCYTES % (AUTO) 25.8 % (21-51); MEAN CORPUSCULAR HEMOGLOBIN 34.2 PG (27.0-31.0); MEAN CORPUSCULAR HGB CONC 33.9 g/dL (33.0-36.5); MEAN CORPUSCULAR VOLUME 100.8 FL (78-98); MEAN PLATELET VOLUME 8.1 FL (7.4-10.4); MONOCYTES # (AUTO) 0.3 X10'3 (0-0.9); MONOCYTES % (AUTO) 9.6 % (2-12); NEUTROPHILS # (AUTO) 1.7 X10'3 (1.8-7.7); NEUTROPHILS % (AUTO) 55.9 % (42-75); PLATELET COUNT 122 X10'3 (140-440); RED BLOOD COUNT 3.04 X10'6 (4.70-6.10); RED CELL DISTRIBUTION WIDTH 14.7 % (11.5-14.5)
[2024-06-13 07:03] LABS: ALANINE AMINOTRANSFERASE 75 U/L (12-78); ALBUMIN 3.6 G/DL (3.4-5.0); ALKALINE PHOSPHATASE 70 IU/L (46-116); ANION GAP 10 (8-16); ASPARTATE AMINO TRANSFERASE 133 U/L (10-37); BILIRUBIN,TOTAL 0.4 MG/DL (0.1-1.0); BLOOD UREA NITROGEN 21 MG/DL (7-18); BUN/CREATININE RATIO 10.5 (10.0-20.0); CALCIUM 8.9 MG/DL (8.5-10.1); CHLORIDE 112 MMOL/L (99-107); GLUCOSE 111 MG/DL (70-104); POTASSIUM 4.1 MMOL/L (3.5-5.1); SODIUM 144 MMOL/L (135-145); TOTAL CARBON DIOXIDE 21.8 MMOL/L (24-32); TOTAL PROTEIN 7.1 G/DL (6.4-8.2); eCRCL 26 ML/MIN; eGFR 33 ML/MIN
[2024-06-13 07:52] LABS: ELLIPTOCYTES FEW; PLATELET ESTIMATE DECREASED; TOTAL CELLS COUNTED 100
[2024-06-13 10:45] LABS: BILIRUBIN,URINE NEGATIVE (Neg); CLARITY,URINE CLEAR (Clear); COLOR,URINE YELLOW (Yellow); GLUCOSE, URINE 250 mg/dl (Neg); KETONES,URINE NEGATIVE (Neg); LEUKOCYTE ESTERASE ,URINE NEGATIVE (Neg); NITRITES, URINE NEGATIVE (Neg); OCCULT BLOOD,URINE NEGATIVE (Neg); PH,URINE 7.5 (4.8-8.0); PROTEIN,URINE 30 mg/dl (Neg); UROBILINOGEN,URINE 0.2 E.U/dL (0.2-1.0)
[2024-06-13 10:51] LABS: UA COLLECTION TYPE NON-SPECIFIED
[2024-06-13 10:52] LABS: TOTAL PROTEIN,URINE RANDOM 53.9 MG/DL
[2024-06-13 10:59] LABS: AMORPHOUS PHOSPHATES 1+; BACTERIA,URINE FEW /HPF (Neg); SQUAMOUS EPITHELIAL CELL,UR FEW /LPF (FEW)
[2024-06-13] MEDS: lactose-reduced food (Ensure Enlive) - 237ml bottle PO SCH (11:00)
[2024-06-13] MEDS: haloperidol lactate 5mg/ml inj IM ONE (21:12)
[2024-06-13] MEDS: LORazepam 2 mg/ml vial IV ONE (22:09)
[2024-06-14] VITALS (9 sets, daily range): BP systolic 87–143; BP diastolic 43–72; PULSE 47–110; RESP 15–30; TEMP 97.3–97.8; O2SAT 95–100
[2024-06-14 09:28] LABS: BASOPHILS % (AUTO) 0.5 % (0-1); EOSINOPHILS # (AUTO) 0.2 X10'3 (0-0.9); HEMATOCRIT 35.6 % (42.0-52.0); HEMOGLOBIN 11.9 g/dl (14.0-17.9); LYMPHOCYTES # (AUTO) 1.2 X10'3 (1.1-4.8); LYMPHOCYTES % (AUTO) 30.7 % (21-51); MEAN CORPUSCULAR HEMOGLOBIN 34.4 PG (27.0-31.0); MEAN CORPUSCULAR HGB CONC 33.5 g/dL (33.0-36.5); MEAN CORPUSCULAR VOLUME 102.5 FL (78-98); MEAN PLATELET VOLUME 8.2 FL (7.4-10.4); MONOCYTES # (AUTO) 0.4 X10'3 (0-0.9); MONOCYTES % (AUTO) 10.9 % (2-12); NEUTROPHILS % (AUTO) 52.9 % (42-75); PLATELET COUNT 151 X10'3 (140-440); RED BLOOD COUNT 3.47 X10'6 (4.70-6.10); RED CELL DISTRIBUTION WIDTH 15.1 % (11.5-14.5); WHITE BLOOD COUNT 3.8 X10'3 (4.5-11.0)
[2024-06-14 09:31] LABS: ALANINE AMINOTRANSFERASE 54 U/L (12-78); ALBUMIN 3.8 G/DL (3.4-5.0); ALKALINE PHOSPHATASE 63 IU/L (46-116); ANION GAP 13 (8-16); BILIRUBIN,TOTAL 0.5 MG/DL (0.1-1.0); BLOOD UREA NITROGEN 19 MG/DL (7-18); BUN/CREATININE RATIO 9.3 (10.0-20.0); CALCIUM 9.9 MG/DL (8.5-10.1); CHLORIDE 113 MMOL/L (99-107); CREATININE 2.05 MG/DL (0.60-1.10); GLUCOSE 169 MG/DL (70-104); SODIUM 148 MMOL/L (135-145); TOTAL CARBON DIOXIDE 21.7 MMOL/L (24-32); TOTAL PROTEIN 7.8 G/DL (6.4-8.2); eCRCL 26 ML/MIN; eGFR 33 ML/MIN
[2024-06-14 09:35] LABS: ASPARTATE AMINO TRANSFERASE 96 U/L (10-37)
[2024-06-14] MEDS: tamsulosin 0.4mg capsule PO SCH (20:25)
[2024-06-15] VITALS (7 sets, daily range): BP systolic 122–154; BP diastolic 60–101; PULSE 84–117; RESP 13–31; TEMP 97.3–98; O2SAT 97–100
[2024-06-15] MEDS: LORazepam 2 mg/ml vial IV ONE (00:32)
[2024-06-15] MEDS: ziprasidone IM 20mg inj **IM only IM ONE (00:45)
[2024-06-15 08:21] LABS: BASOPHILS % (AUTO) 0.6 % (0-1); EOSINOPHILS # (AUTO) 0.1 X10'3 (0-0.9); EOSINOPHILS % (AUTO) 3.9 % (0-6); HEMATOCRIT 33.3 % (42.0-52.0); HEMOGLOBIN 11.3 g/dl (14.0-17.9); LYMPHOCYTES # (AUTO) 0.8 X10'3 (1.1-4.8); LYMPHOCYTES % (AUTO) 20.8 % (21-51); MEAN CORPUSCULAR HEMOGLOBIN 34.4 PG (27.0-31.0); MEAN CORPUSCULAR VOLUME 100.9 FL (78-98); MEAN PLATELET VOLUME 7.9 FL (7.4-10.4); MONOCYTES # (AUTO) 0.4 X10'3 (0-0.9); MONOCYTES % (AUTO) 10.6 % (2-12); NEUTROPHILS # (AUTO) 2.4 X10'3 (1.8-7.7); NEUTROPHILS % (AUTO) 64.1 % (42-75); PLATELET COUNT 149 X10'3 (140-440); WHITE BLOOD COUNT 3.8 X10'3 (4.5-11.0)
[2024-06-15 08:32] LABS: ALANINE AMINOTRANSFERASE 65 U/L (12-78); ALBUMIN 3.8 G/DL (3.4-5.0); ALKALINE PHOSPHATASE 74 IU/L (46-116); ANION GAP 12 (8-16); ASPARTATE AMINO TRANSFERASE 82 U/L (10-37); BILIRUBIN,TOTAL 0.5 MG/DL (0.1-1.0); BLOOD UREA NITROGEN 26 MG/DL (7-18); BUN/CREATININE RATIO 11.2 (10.0-20.0); CALCIUM 9.3 MG/DL (8.5-10.1); CHLORIDE 112 MMOL/L (99-107); CREATININE 2.32 MG/DL (0.60-1.10); GLUCOSE 172 MG/DL (70-104); POTASSIUM 4.1 MMOL/L (3.5-5.1); SODIUM 147 MMOL/L (135-145); TOTAL CARBON DIOXIDE 22.8 MMOL/L (24-32); TOTAL PROTEIN 7.6 G/DL (6.4-8.2); eCRCL 23 ML/MIN; eGFR 28 ML/MIN
[2024-06-15] MEDS ORDERED: dextrose 5%-water 1,000 ML IV SCH (15:15)
[2024-06-15] MEDS ORDERED: LORazepam 2 mg/ml vial IV ONE (15:25)
[2024-06-15] MEDS: haloperidol lactate 5mg/ml inj IM ONE (16:27)
[2024-06-15] MEDS: QUEtiapine 25mg tablet PO SCH (16:27)
[2024-06-15] MEDS: normal saline 1000ml 1,000 ML IV ONE (16:28)
[2024-06-15 20:49] LABS: ALBUMIN 3.6 G/DL (3.4-5.0); ANION GAP 11 (8-16); BLOOD UREA NITROGEN 28 MG/DL (7-18); BUN/CREATININE RATIO 11.8 (10.0-20.0); CALCIUM 9.8 MG/DL (8.5-10.1); CHLORIDE 119 MMOL/L (99-107); CREATININE 2.37 MG/DL (0.60-1.10); GLUCOSE 111 MG/DL (70-104); POTASSIUM 4.5 MMOL/L (3.5-5.1); SODIUM 153 MMOL/L (135-145); TOTAL CARBON DIOXIDE 22.7 MMOL/L (24-32); eCRCL 22 ML/MIN; eGFR 28 ML/MIN
[2024-06-16] VITALS (8 sets, daily range): BP systolic 119–162; BP diastolic 59–73; PULSE 65–105; RESP 12–19; TEMP 97.5–98.3; O2SAT 97–100
[2024-06-16] MEDS: LORazepam 2 mg/ml vial IM ONE (03:15)
[2024-06-16] MEDS: diphenhydrAMINE 50 mg/ml inj IV ONE (04:18)
[2024-06-16] MEDS: dextrose 5%-water 1,000 ML IV SCH (07:40)
[2024-06-16 07:54] LABS: BASOPHILS % (AUTO) 0.4 % (0-1); EOSINOPHILS # (AUTO) 0.1 X10'3 (0-0.9); EOSINOPHILS % (AUTO) 2.3 % (0-6); HEMATOCRIT 33.5 % (42.0-52.0); HEMOGLOBIN 11.3 g/dl (14.0-17.9); LYMPHOCYTES # (AUTO) 0.6 X10'3 (1.1-4.8); LYMPHOCYTES % (AUTO) 13.9 % (21-51); MEAN CORPUSCULAR HEMOGLOBIN 34.4 PG (27.0-31.0); MEAN CORPUSCULAR HGB CONC 33.7 g/dL (33.0-36.5); MEAN CORPUSCULAR VOLUME 102.1 FL (78-98); MEAN PLATELET VOLUME 8.2 FL (7.4-10.4); MONOCYTES # (AUTO) 0.4 X10'3 (0-0.9); MONOCYTES % (AUTO) 8.6 % (2-12); NEUTROPHILS # (AUTO) 3.3 X10'3 (1.8-7.7); NEUTROPHILS % (AUTO) 74.8 % (42-75); PLATELET COUNT 161 X10'3 (140-440); RED BLOOD COUNT 3.28 X10'6 (4.70-6.10); RED CELL DISTRIBUTION WIDTH 15.2 % (11.5-14.5); WHITE BLOOD COUNT 4.5 X10'3 (4.5-11.0)
[2024-06-16 08:20] LABS: ALANINE AMINOTRANSFERASE 66 U/L (12-78); ALBUMIN 4.1 G/DL (3.4-5.0); ALBUMIN/GLOBULIN RATIO 1.1 (1.1-1.5); ALKALINE PHOSPHATASE 67 IU/L (46-116); ANION GAP 16 (8-16); ASPARTATE AMINO TRANSFERASE 108 U/L (10-37); BILIRUBIN,TOTAL 0.6 MG/DL (0.1-1.0); BLOOD UREA NITROGEN 27 MG/DL (7-18); BUN/CREATININE RATIO 11.4 (10.0-20.0); CALCIUM 9.9 MG/DL (8.5-10.1); CHLORIDE 114 MMOL/L (99-107); CREATININE 2.36 MG/DL (0.60-1.10); GLUCOSE 170 MG/DL (70-104); POTASSIUM 4.2 MMOL/L (3.5-5.1); SODIUM 153 MMOL/L (135-145); TOTAL CARBON DIOXIDE 22.6 MMOL/L (24-32); TOTAL PROTEIN 7.7 G/DL (6.4-8.2); eCRCL 22 ML/MIN; eGFR 28 ML/MIN
[2024-06-16] MEDS: QUEtiapine 25mg tablet PO SCH ×2 (16:30→20:48)
[2024-06-17] MEDS: QUEtiapine 25mg tablet PO SCH ×2 (07:30→16:00)
[2024-06-17 07:57] LABS: BASOPHILS % (AUTO) 0.5 % (0-1); EOSINOPHILS # (AUTO) 0.1 X10'3 (0-0.9); EOSINOPHILS % (AUTO) 2.8 % (0-6); HEMATOCRIT 30.4 % (42.0-52.0); HEMOGLOBIN 10.1 g/dl (14.0-17.9); LYMPHOCYTES # (AUTO) 0.8 X10'3 (1.1-4.8); LYMPHOCYTES % (AUTO) 21.1 % (21-51); MEAN CORPUSCULAR HEMOGLOBIN 34.4 PG (27.0-31.0); MEAN CORPUSCULAR HGB CONC 33.4 g/dL (33.0-36.5); MEAN CORPUSCULAR VOLUME 103.1 FL (78-98); MONOCYTES # (AUTO) 0.4 X10'3 (0-0.9); MONOCYTES % (AUTO) 10.8 % (2-12); NEUTROPHILS # (AUTO) 2.3 X10'3 (1.8-7.7); NEUTROPHILS % (AUTO) 64.8 % (42-75); PLATELET COUNT 149 X10'3 (140-440); RED BLOOD COUNT 2.95 X10'6 (4.70-6.10); RED CELL DISTRIBUTION WIDTH 15.8 % (11.5-14.5); WHITE BLOOD COUNT 3.6 X10'3 (4.5-11.0)
[2024-06-17 08:00] VITALS: BP 162/70; PULSE 98; RESP 18; RESP 20; TEMP 97.6; O2SAT 100
[2024-06-17 08:02] LABS: ALANINE AMINOTRANSFERASE 58 U/L (12-78); ALBUMIN 3.7 G/DL (3.4-5.0); ALBUMIN/GLOBULIN RATIO 1.1 (1.1-1.5); ALKALINE PHOSPHATASE 58 IU/L (46-116); ANION GAP 20 (8-16); ASPARTATE AMINO TRANSFERASE 88 U/L (10-37); BILIRUBIN,TOTAL 0.7 MG/DL (0.1-1.0); BLOOD UREA NITROGEN 23 MG/DL (7-18); BUN/CREATININE RATIO 9.7 (10.0-20.0); CALCIUM 9.4 MG/DL (8.5-10.1); CHLORIDE 106 MMOL/L (99-107); CREATININE 2.37 MG/DL (0.60-1.10); GLUCOSE 316 MG/DL (70-104); POTASSIUM 3.9 MMOL/L (3.5-5.1); SODIUM 142 MMOL/L (135-145); TOTAL CARBON DIOXIDE 15.6 MMOL/L (24-32); TOTAL PROTEIN 7.2 G/DL (6.4-8.2); eCRCL 22 ML/MIN; eGFR 28 ML/MIN
[2024-06-17] MEDS: ringers solution, lacted 1,000 ML IV ONE (08:45)
[2024-06-17] MEDS: finasteride 5mg tablet PO SCH (11:30)
[2024-06-17 11:53] VITALS: BP 148/82; PULSE 97; RESP 19; TEMP 97.6; O2SAT 92
[2024-06-17 12:09] LABS: ALBUMIN 3.8 G/DL (3.4-5.0); BLOOD UREA NITROGEN 23 MG/DL (7-18); BUN/CREATININE RATIO 9.5 (10.0-20.0); CALCIUM 10.1 MG/DL (8.5-10.1); CREATININE 2.41 MG/DL (0.60-1.10); GLUCOSE 98 MG/DL (70-104); POTASSIUM 3.5 MMOL/L (3.5-5.1); SODIUM 147 MMOL/L (135-145); TOTAL CARBON DIOXIDE 16.8 MMOL/L (24-32); eCRCL 22 ML/MIN; eGFR 27 ML/MIN
[2024-06-17 12:30] LABS: CHLORIDE 113 MMOL/L (99-107)
[2024-06-17 12:31] LABS: ANION GAP 17 (8-16)
[2024-06-17 14:59] LABS: BILIRUBIN,URINE NEGATIVE (Neg); CLARITY,URINE CLEAR (Clear); COLOR,URINE YELLOW (Yellow); GLUCOSE, URINE 500 mg/dl (Neg); KETONES,URINE 15 mg/dl (Neg); LEUKOCYTE ESTERASE ,URINE NEGATIVE (Neg); NITRITES, URINE NEGATIVE (Neg); OCCULT BLOOD,URINE NEGATIVE (Neg); PH,URINE 6.5 (4.8-8.0); PROTEIN,URINE 30 mg/dl (Neg); UROBILINOGEN,URINE 0.2 E.U/dL (0.2-1.0)
[2024-06-17 15:04] LABS: UA COLLECTION TYPE FOLEY CATH
[2024-06-17 15:19] LABS: HYALINE CASTS 0-3 /LPF (NEGATIVE); MUCUS STRANDS FEW /LPF (Neg)
[2024-06-17 15:21] LABS: RBC,URINE 0-2 /HPF (0-2); WBC,URINE 0-4 /HPF (0-4)
[2024-06-17 15:22] LABS: AMORPHOUS URATES 4+; BACTERIA,URINE NONE SEEN /HPF (Neg); CAL OXALATE CRYSTALS 4+ /HPF (NEGATIVE); SQUAMOUS EPITHELIAL CELL,UR FEW /LPF (FEW)
[2024-06-17] MEDS ORDERED: famotidine 20mg tablet PO SCH (15:33)
[2024-06-17 16:11] VITALS: BP 127/63; PULSE 60; RESP 18; TEMP 97.1; O2SAT 99
[2024-06-17 20:00] VITALS: BP 133/65; PULSE 86; RESP 18; TEMP 98.5; O2SAT 99
[2024-06-17 20:15] LABS: ALBUMIN 3.3 G/DL (3.4-5.0); ANION GAP 13 (8-16); BLOOD UREA NITROGEN 21 MG/DL (7-18); BUN/CREATININE RATIO 10.5 (10.0-20.0); CALCIUM 9.3 MG/DL (8.5-10.1); CHLORIDE 112 MMOL/L (99-107); GLUCOSE 151 MG/DL (70-104); POTASSIUM 3.4 MMOL/L (3.5-5.1); SODIUM 147 MMOL/L (135-145); eCRCL 26 ML/MIN; eGFR 33 ML/MIN
[2024-06-17 23:36] VITALS: BP 138/68; PULSE 90; RESP 20; TEMP 98; O2SAT 95
[2024-06-18 03:36] VITALS: BP 138/68; PULSE 90; RESP 20; TEMP 97.9; O2SAT 98
[2024-06-18 06:00] VITALS: BP 126/72; PULSE 98; RESP 18; TEMP 98.2; O2SAT 98
[2024-06-18 07:42] LABS: BASOPHILS % (AUTO) 0.7 % (0-1); EOSINOPHILS # (AUTO) 0.2 X10'3 (0-0.9); HEMATOCRIT 31.8 % (42.0-52.0); HEMOGLOBIN 10.8 g/dl (14.0-17.9); LYMPHOCYTES # (AUTO) 0.8 X10'3 (1.1-4.8); LYMPHOCYTES % (AUTO) 22.8 % (21-51); MEAN CORPUSCULAR HEMOGLOBIN 34.4 PG (27.0-31.0); MEAN CORPUSCULAR VOLUME 101.1 FL (78-98); MEAN PLATELET VOLUME 7.7 FL (7.4-10.4); MONOCYTES # (AUTO) 0.4 X10'3 (0-0.9); MONOCYTES % (AUTO) 11.3 % (2-12); NEUTROPHILS # (AUTO) 2.2 X10'3 (1.8-7.7); NEUTROPHILS % (AUTO) 60.2 % (42-75); PLATELET COUNT 168 X10'3 (140-440); RED BLOOD COUNT 3.15 X10'6 (4.70-6.10); RED CELL DISTRIBUTION WIDTH 15.5 % (11.5-14.5); WHITE BLOOD COUNT 3.7 X10'3 (4.5-11.0)
[2024-06-18 08:00] VITALS: RESP 18; O2SAT 97
[2024-06-18 08:11] LABS: ALBUMIN 3.8 G/DL (3.4-5.0); ANION GAP 17 (8-16); BLOOD UREA NITROGEN 20 MG/DL (7-18); BUN/CREATININE RATIO 9.8 (10.0-20.0); CALCIUM 9.5 MG/DL (8.5-10.1); CHLORIDE 109 MMOL/L (99-107); CREATININE 2.05 MG/DL (0.60-1.10); GLUCOSE 136 MG/DL (70-104); POTASSIUM 3.9 MMOL/L (3.5-5.1); SODIUM 146 MMOL/L (135-145); TOTAL CARBON DIOXIDE 20.2 MMOL/L (24-32); eCRCL 26 ML/MIN; eGFR 33 ML/MIN
[2024-06-18 11:00] VITALS: BP 152/73; PULSE 106; RESP 20; TEMP 97.8; O2SAT 94
[2024-06-18] MEDS: ringers solution, lacted 1,000 ML IV SCH (11:00)
[2024-06-18] MEDS ORDERED: sodium bicarbonate tablet PO (14:50)
[2024-06-18] MEDS ORDERED: FINA5TAB11 PO (14:50)
[2024-06-18] MEDS ORDERED: tamsulosin capsule PO (14:50)
[2024-06-18] MEDS ORDERED: QUET25TA36 PO (14:50)
[2024-06-18 15:00] VITALS: BP 133/72; PULSE 84; RESP 16; TEMP 97.1; O2SAT 98
[2024-06-18 18:00] VITALS: BP 119/50; PULSE 72; RESP 20; TEMP 97.4; O2SAT 97
== END 2024-06-18 20:45 | disposition home or self-care (01) | DRG 720 ==
LOC: ER 12:26 → ED HOLD 15:29 → PCU 3S 06-09 07:15
PROVIDERS: ADMIT Family Medicine; ATTEND Family Medicine
DX: A41.9 Sepsis, unspecified organism (principal); G93.41 Metabolic encephalopathy; N17.9 Acute kidney failure, unspecified; D61.818 Other pancytopenia; E87.0 Hyperosmolality and hypernatremia; E83.51 Hypocalcemia; E11.51 Type 2 diabetes mellitus with diabetic peripheral angiopathy without gangrene; D50.9 Iron deficiency anemia, unspecified; Z66 Do not resuscitate; E03.9 Hypothyroidism, unspecified; E87.8 Other disorders of electrolyte and fluid balance, not elsewhere classified; R74.01 Elevation of levels of liver transaminase levels; E78.00 Pure hypercholesterolemia, unspecified; F03.90 Unspecified dementia, unspecified severity, without behavioral disturbance, psychotic disturbance, mood disturbance, and anxiety; N39.0 Urinary tract infection, site not specified; R65.20 Severe sepsis without septic shock; I12.9 Hypertensive chronic kidney disease with stage 1 through stage 4 chronic kidney disease, or unspecified chronic kidney disease; N18.30 Chronic kidney disease, stage 3 unspecified; F41.9 Anxiety disorder, unspecified; G89.29 Other chronic pain; Z88.5 Allergy status to narcotic agent; Z79.82 Long term (current) use of aspirin; Z79.899 Other long term (current) drug therapy; Z89.512 Acquired absence of left leg below knee; Z79.4 Long term (current) use of insulin
CPT/HCPCS: 36415; 71045; 73100; 80048; 80053; 81001; 82140; 82330; 82570; 82607; 82948; 83605; 83735; 83930; 83935; 84133; 84145; 84156; 84300; 84439; 84443; 84540; 85007; 85025; 85610; 85730; 86022; 87088; 87207; 92508; 92616; 93971; 97161; 97530; 99291; A4314; A4340; A5200; A6213; A6258; A6402; A6455; A6590; C1758; G0378; J0131; J0696; J1200; J1630; J1644; J1652; J1815; J2060; J3486; J3490; J7030; J7040; J7070; J7120; J7512

== ENCOUNTER 2024-06-21 01:48 | Inpatient (IN) | payer MEDICAID ==
[~2024-06-21] VITALS: Ht 157.5 cm; Wt 47.8 kg
[~2024-06-21 01:48] MED LIST changes: -ESLI400T PO; +FINA5TAB11 PO; +QUET25TA36 PO; +sodium bicarbonate tablet PO
[2024-06-21 03:20] LABS: BILIRUBIN,URINE NEGATIVE (Neg); CLARITY,URINE SLIGHTLY CLOUDY (Clear); COLOR,URINE YELLOW (Yellow); GLUCOSE, URINE 500 mg/dl (Neg); KETONES,URINE NEGATIVE (Neg); LEUKOCYTE ESTERASE ,URINE NEGATIVE (Neg); NITRITES, URINE NEGATIVE (Neg); OCCULT BLOOD,URINE LARGE (Neg); PH,URINE 7.5 (4.8-8.0); PROTEIN,URINE 30 mg/dl (Neg); UROBILINOGEN,URINE 0.2 E.U/dL (0.2-1.0)
[2024-06-21] MEDS: diphenhydrAMINE 50 mg/ml inj IV ONE ×2 (03:45→07:20)
[2024-06-21] MEDS: LORazepam 2 mg/ml vial IV ONE ×2 (03:45→07:20)
[2024-06-21 04:04] LABS: RBC,URINE 50-100 /HPF (0-2); SQUAMOUS EPITHELIAL CELL,UR FEW /LPF (FEW); TRANSITIONAL EPI CELLS,URINE FEW /HPF; UA COLLECTION TYPE NON-SPECIFIED
[2024-06-21 04:05] LABS: AMORPHOUS PHOSPHATES 1+; BACTERIA,URINE FEW /HPF (Neg); MUCUS STRANDS FEW /LPF (Neg); WBC,URINE 0-4 /HPF (0-4)
[2024-06-21 04:28] LABS: BASOPHILS % (AUTO) 0.6 % (0-1); EOSINOPHILS # (AUTO) 0.1 X10'3 (0-0.9); EOSINOPHILS % (AUTO) 3.7 % (0-6); HEMATOCRIT 26.8 % (42.0-52.0); HEMOGLOBIN 9.1 g/dl (14.0-17.9); LYMPHOCYTES # (AUTO) 0.3 X10'3 (1.1-4.8); LYMPHOCYTES % (AUTO) 8.7 % (21-51); MEAN CORPUSCULAR HEMOGLOBIN 34.3 PG (27.0-31.0); MEAN CORPUSCULAR VOLUME 100.8 FL (78-98); MEAN PLATELET VOLUME 7.5 FL (7.4-10.4); MONOCYTES # (AUTO) 0.3 X10'3 (0-0.9); MONOCYTES % (AUTO) 8.8 % (2-12); NEUTROPHILS # (AUTO) 2.7 X10'3 (1.8-7.7); NEUTROPHILS % (AUTO) 78.2 % (42-75); PLATELET COUNT 148 X10'3 (140-440); RED BLOOD COUNT 2.66 X10'6 (4.70-6.10); RED CELL DISTRIBUTION WIDTH 15.7 % (11.5-14.5); WHITE BLOOD COUNT 3.4 X10'3 (4.5-11.0)
[2024-06-21 04:48] LABS: LACTIC SEPSIS 1.2 MMOL/L (0.4-2.0)
[2024-06-21 04:49] LABS: ALANINE AMINOTRANSFERASE 129 U/L (12-78); ALBUMIN 3.1 G/DL (3.4-5.0); ALBUMIN/GLOBULIN RATIO 0.9 (1.1-1.5); ALKALINE PHOSPHATASE 444 IU/L (46-116); ANION GAP 12 (8-16); ASPARTATE AMINO TRANSFERASE 138 U/L (10-37); BILIRUBIN,TOTAL 0.7 MG/DL (0.1-1.0); BLOOD UREA NITROGEN 39 MG/DL (7-18); BUN/CREATININE RATIO 19.8 (10.0-20.0); CALCIUM 9.1 MG/DL (8.5-10.1); CHLORIDE 104 MMOL/L (99-107); CREATININE 1.97 MG/DL (0.60-1.10); GLUCOSE 173 MG/DL (70-104); POTASSIUM 3.9 MMOL/L (3.5-5.1); SODIUM 139 MMOL/L (135-145); TOTAL CARBON DIOXIDE 23.2 MMOL/L (24-32); TOTAL PROTEIN 6.4 G/DL (6.4-8.2); eCRCL 28 ML/MIN; eGFR 34 ML/MIN
[2024-06-21 05:24] LABS: OCCULT BLOOD STOOL NEGATIVE (Neg)
[2024-06-21] MEDS ORDERED: ondansetron/PF 4mg/2ml inj IV PRN (07:25)
[2024-06-21] MEDS ORDERED: magnesium sulf-water 4G/100mL 100 ML IV PRN (07:25)
[2024-06-21] MEDS ORDERED: mag hydrox/Alum hydrox/simeth 30ml oral suspension PO PRN (07:25)
[2024-06-21] MEDS ORDERED: potassium Cl 20 mEq SR tablet PO PRN ×2 (07:25)
[2024-06-21] MEDS ORDERED: potassium Cl 40MEQ/1/2NS 520ml 520 ML IV PRN (07:25)
[2024-06-21] MEDS ORDERED: magnesium sulf-water 2g/50mL 50 ML IV PRN (07:25)
[2024-06-21] MEDS ORDERED: acetaminophen 325mg tablet PO PRN (07:25)
[2024-06-21] MEDS ORDERED: ondansetron 4mg rapidly disintigrating tab PO PRN (07:25)
[2024-06-21] MEDS ORDERED: morphine 2 MG/ML inj. syringe IV PRN ×2 (07:25)
[2024-06-21] MEDS: PERFLUTREN PROTEIN-A MICROSPHR (Optison) 0.22 MG/ML 3ML VIAL IV ONE (07:28)
[2024-06-21] MEDS: heparin, porcine 5000 units/ml vial SQ SCH (08:00)
[2024-06-21] MEDS: docusate sod 100mg capsule PO SCH (08:00)
[2024-06-21] MEDS: K and/or MAG REPLACEMENT MC SCH (08:00)
[2024-06-21 08:14] LABS: URINE AMPHETAMINE SCREEN NEGATIVE (Neg); URINE BARBITUATE SCREEN NEGATIVE (Neg); URINE BENZODIAZEPINES SCREEN NEGATIVE (Neg); URINE CANNABINOID SCREEN NEGATIVE (Neg); URINE COCAINE SCREEN NEGATIVE (Neg); URINE METHADONE SCREEN NEGATIVE (Neg); URINE OPIATE SCREEN NEGATIVE (Neg); URINE PHENCYCLIDINE SCREEN NEGATIVE (Neg)
[2024-06-21] MEDS: haloperidol lactate 5mg/ml inj IM ONE (08:38)
[2024-06-21] MEDS: ziprasidone IM 20mg inj **IM only IM ONE (11:39)
[2024-06-21 12:00] LABS: % IRON SATURATION 31 % (11-46); IRON 86 UG/DL (53-167); TOTAL IRON BINDING CAPACITY 279 UG/DL (259-388)
[2024-06-21] MEDS: haloperidol lactate 5mg/ml inj IM PRN (14:47)
[2024-06-21] MEDS: lamoTRIgine 100mg tablet PO SCH (20:00)
[2024-06-21] MEDS: topiramate 100mg tablet PO SCH (20:00)
[2024-06-21] MEDS: tamsulosin 0.4mg capsule PO SCH (20:00)
[2024-06-21] MEDS ORDERED: ciprofloxacin lact 400MG/200ML 200 ML IV SCH (20:00)
[2024-06-22] MEDS: ciprofloxacin lact 400MG/200ML 200 ML IV SCH (00:56)
[2024-06-22 07:34] LABS: BASOPHILS % (AUTO) 0.6 % (0-1); EOSINOPHILS # (AUTO) 0.2 X10'3 (0-0.9); EOSINOPHILS % (AUTO) 5.6 % (0-6); HEMATOCRIT 32.2 % (42.0-52.0); HEMOGLOBIN 10.9 g/dl (14.0-17.9); LYMPHOCYTES # (AUTO) 0.9 X10'3 (1.1-4.8); LYMPHOCYTES % (AUTO) 23.9 % (21-51); MEAN CORPUSCULAR HEMOGLOBIN 34.8 PG (27.0-31.0); MEAN CORPUSCULAR VOLUME 102.4 FL (78-98); MEAN PLATELET VOLUME 7.8 FL (7.4-10.4); MONOCYTES # (AUTO) 0.5 X10'3 (0-0.9); NEUTROPHILS # (AUTO) 2.3 X10'3 (1.8-7.7); NEUTROPHILS % (AUTO) 57.9 % (42-75); PLATELET COUNT 177 X10'3 (140-440); RED BLOOD COUNT 3.15 X10'6 (4.70-6.10); WHITE BLOOD COUNT 3.9 X10'3 (4.5-11.0)
[2024-06-22] MEDS: finasteride 5mg tablet PO SCH (08:00)
[2024-06-22 08:03] LABS: ALANINE AMINOTRANSFERASE 114 U/L (12-78); ALBUMIN 3.5 G/DL (3.4-5.0); ALBUMIN/GLOBULIN RATIO 0.9 (1.1-1.5); ALKALINE PHOSPHATASE 462 IU/L (46-116); ANION GAP 9 (8-16); ASPARTATE AMINO TRANSFERASE 112 U/L (10-37); BILIRUBIN,TOTAL 0.8 MG/DL (0.1-1.0); BLOOD UREA NITROGEN 33 MG/DL (7-18); BUN/CREATININE RATIO 14.1 (10.0-20.0); CHLORIDE 104 MMOL/L (99-107); CREATININE 2.34 MG/DL (0.60-1.10); GLUCOSE 168 MG/DL (70-104); MAGNESIUM 2.6 MG/DL (1.5-2.4); POTASSIUM 4.4 MMOL/L (3.5-5.1); SODIUM 138 MMOL/L (135-145); TOTAL PROTEIN 7.4 G/DL (6.4-8.2); eCRCL 24 ML/MIN; eGFR 28 ML/MIN
[2024-06-22] MEDS: normal saline 1000ml 1,000 ML IV SCH (08:15)
[2024-06-22] MEDS: normal saline 1000ml 1,000 ML IV ONE (08:20)
[2024-06-22] MEDS: atorvastatin 20mg tablet PO SCH (08:26)
[2024-06-22] MEDS: aspirin 81mg, enteric-coated 1 TAB TABLET.DR PO SCH (08:26)
[2024-06-22 08:56] LABS: LIPASE 93 U/L (16-77)
[2024-06-22] MEDS: metroNIDAZOLE-Flagyl 500mg/NS 100 ML IV SCH (09:28)
[2024-06-22 10:00] VITALS: BP 105/61; PULSE 88; RESP 18; TEMP 98; O2SAT 98
[2024-06-22] MEDS ORDERED: HYDROmorphone/PF 0.2 MG/ML SYRINGE IV PRN (11:20)
[2024-06-22] MEDS ORDERED: morphine 2 MG/ML inj. syringe IV PRN ×2 (11:20)
[2024-06-22] MEDS: ringers solution, lacted 1,000 ML IV ONE (11:25)
[2024-06-22] MEDS: ringers solution, lacted 1,000 ML IV STA (13:21)
[2024-06-22] MEDS ORDERED: morphine 2 MG/ML inj. syringe IM PRN (13:25)
[2024-06-22] MEDS: LORazepam 2 mg/ml vial IM PRN (13:48)
[2024-06-22] MEDS: HYDROmorphone inj. 0.5 MG/0.5 ML DISP.SYRIN IV PRN (15:08)
[2024-06-22 18:56] VITALS: BP 130/65; PULSE 91; RESP 18; TEMP 98; O2SAT 99
[2024-06-22 20:00] VITALS: RESP 17; O2SAT 93
[2024-06-22 22:00] VITALS: BP 130/60; PULSE 81; RESP 18; TEMP 98.2; O2SAT 100
[2024-06-23 06:00] VITALS: BP 161/70; PULSE 87; RESP 16; TEMP 97.5; O2SAT 97
[2024-06-23 06:34] LABS: BASOPHILS % (AUTO) 0.9 % (0-1); EOSINOPHILS # (AUTO) 0.1 X10'3 (0-0.9); EOSINOPHILS % (AUTO) 3.9 % (0-6); HEMATOCRIT 30.4 % (42.0-52.0); HEMOGLOBIN 10.1 g/dl (14.0-17.9); LYMPHOCYTES # (AUTO) 0.8 X10'3 (1.1-4.8); LYMPHOCYTES % (AUTO) 21.9 % (21-51); MEAN CORPUSCULAR HEMOGLOBIN 34.3 PG (27.0-31.0); MEAN CORPUSCULAR HGB CONC 33.2 g/dL (33.0-36.5); MEAN CORPUSCULAR VOLUME 103.1 FL (78-98); MONOCYTES # (AUTO) 0.5 X10'3 (0-0.9); MONOCYTES % (AUTO) 12.6 % (2-12); NEUTROPHILS # (AUTO) 2.2 X10'3 (1.8-7.7); NEUTROPHILS % (AUTO) 60.7 % (42-75); PLATELET COUNT 184 X10'3 (140-440); RED BLOOD COUNT 2.95 X10'6 (4.70-6.10); RED CELL DISTRIBUTION WIDTH 15.8 % (11.5-14.5); WHITE BLOOD COUNT 3.6 X10'3 (4.5-11.0)
[2024-06-23 07:05] LABS: ALANINE AMINOTRANSFERASE 89 U/L (12-78); ALBUMIN 3.4 G/DL (3.4-5.0); ALKALINE PHOSPHATASE 357 IU/L (46-116); ANION GAP 12 (8-16); ASPARTATE AMINO TRANSFERASE 100 U/L (10-37); BILIRUBIN,TOTAL 0.6 MG/DL (0.1-1.0); BLOOD UREA NITROGEN 27 MG/DL (7-18); BUN/CREATININE RATIO 12.9 (10.0-20.0); CALCIUM 8.5 MG/DL (8.5-10.1); CHLORIDE 109 MMOL/L (99-107); GLUCOSE 120 MG/DL (70-104); MAGNESIUM 2.3 MG/DL (1.5-2.4); POTASSIUM 4.7 MMOL/L (3.5-5.1); SODIUM 143 MMOL/L (135-145); TOTAL CARBON DIOXIDE 21.7 MMOL/L (24-32); TOTAL PROTEIN 6.9 G/DL (6.4-8.2); eCRCL 26 ML/MIN; eGFR 32 ML/MIN
[2024-06-23] MEDS: HYDROmorphone 1 mg/ml syringe IV PRN (07:07)
[2024-06-23] MEDS ORDERED: HYDROcodone/acetaminophen 10/325mg tab PO PRN (15:40)
[2024-06-23] MEDS: LORazepam 1 MG tablet PO ONE (15:47)
[2024-06-23 19:55] VITALS: RESP 18
[2024-06-23 22:00] VITALS: BP 125/53; PULSE 116; RESP 18; TEMP 97.9; O2SAT 94
[2024-06-24 06:40] LABS: BASOPHILS % (AUTO) 0.8 % (0-1); EOSINOPHILS # (AUTO) 0.1 X10'3 (0-0.9); EOSINOPHILS % (AUTO) 1.9 % (0-6); HEMATOCRIT 29.6 % (42.0-52.0); HEMOGLOBIN 9.8 g/dl (14.0-17.9); LYMPHOCYTES # (AUTO) 0.6 X10'3 (1.1-4.8); LYMPHOCYTES % (AUTO) 17.2 % (21-51); MEAN CORPUSCULAR HEMOGLOBIN 34.8 PG (27.0-31.0); MEAN CORPUSCULAR HGB CONC 33.3 g/dL (33.0-36.5); MEAN CORPUSCULAR VOLUME 104.5 FL (78-98); MEAN PLATELET VOLUME 7.8 FL (7.4-10.4); MONOCYTES # (AUTO) 0.5 X10'3 (0-0.9); MONOCYTES % (AUTO) 13.8 % (2-12); NEUTROPHILS # (AUTO) 2.5 X10'3 (1.8-7.7); NEUTROPHILS % (AUTO) 66.3 % (42-75); PLATELET COUNT 194 X10'3 (140-440); RED BLOOD COUNT 2.83 X10'6 (4.70-6.10); RED CELL DISTRIBUTION WIDTH 16.6 % (11.5-14.5); WHITE BLOOD COUNT 3.7 X10'3 (4.5-11.0)
[2024-06-24 06:51] LABS: ALANINE AMINOTRANSFERASE 81 U/L (12-78); ALBUMIN 3.4 G/DL (3.4-5.0); ALKALINE PHOSPHATASE 297 IU/L (46-116); ANION GAP 15 (8-16); ASPARTATE AMINO TRANSFERASE 103 U/L (10-37); BILIRUBIN,TOTAL 0.6 MG/DL (0.1-1.0); BLOOD UREA NITROGEN 22 MG/DL (7-18); BUN/CREATININE RATIO 10.5 (10.0-20.0); CALCIUM 8.4 MG/DL (8.5-10.1); CHLORIDE 110 MMOL/L (99-107); CREATININE 2.09 MG/DL (0.60-1.10); GLUCOSE 119 MG/DL (70-104); POTASSIUM 4.7 MMOL/L (3.5-5.1); SODIUM 143 MMOL/L (135-145); TOTAL CARBON DIOXIDE 17.6 MMOL/L (24-32); TOTAL PROTEIN 6.9 G/DL (6.4-8.2); eCRCL 26 ML/MIN; eGFR 32 ML/MIN
[2024-06-24 08:00] VITALS: RESP 20; O2SAT 99
[2024-06-24 08:14] LABS: C-REACTIVE PROTEIN 2.32 MG/DL (0.0-0.5); CHOL/HDL RATIO 1.3 (0.00-4.99); CHOLESTEROL 117 MG/DL (0-200); HDL CHOLESTEROL 88 MG/DL (35-60); LDL CHOLESTEROL 26 MG/DL (50-100); TRIGLYCERIDES 26 MG/DL (20-135)
[2024-06-24] MEDS ORDERED: diazepam inj 5 MG/ML inj. IV PRN (14:05)
[2024-06-24] MEDS ORDERED: acetaminophen 1,000mg/100ml IV 100 ML IV PRN (14:05)
[2024-06-24] MEDS: SINCALIDE IV ONE (16:00)
[2024-06-24] MEDS: NORMAL SALINE IV ONE (16:00)
[2024-06-24 16:14] LABS: LIPASE 20 U/L (16-77)
[2024-06-24] MEDS ORDERED: HYDROmorphone inj. 0.5 MG/0.5 ML DISP.SYRIN IV PRN (17:00)
[2024-06-24] MEDS: HYDROmorphone 1 mg/ml syringe IV PRN (18:59)
[2024-06-24 19:11] VITALS: BP 134/67; PULSE 109; RESP 22; TEMP 98.9; O2SAT 100
[2024-06-24 20:00] VITALS: RESP 20; RESP 22; O2SAT 100; O2SAT 95
[2024-06-24 22:00] VITALS: BP 125/62; PULSE 114; RESP 17; TEMP 97.9; O2SAT 98
[2024-06-25] VITALS (15 sets, daily range): BP systolic 99–183; BP diastolic 48–99; PULSE 75–121; RESP 14–20; TEMP 97.9–98.3; O2SAT 95–100
[2024-06-25] MEDS ORDERED: glucagon, human recombinant 1mg kit ONE (06:36)
[2024-06-25] MEDS ORDERED: iohexol 300mg/ml 100ml inj. ONE (06:37)
[2024-06-25] MEDS ORDERED: proCHLORperazine 10 MG/2 ml inj ONE (06:37)
[2024-06-25] MEDS ORDERED: sevoflurane 250ml liquid IH ONE (08:15)
[2024-06-25] MEDS ORDERED: ketamine 50mg/5ml syringe ONE (08:20)
[2024-06-25] MEDS ORDERED: proCHLORperazine 10 MG/2 ml inj IV PRN (10:05)
[2024-06-25] MEDS ORDERED: ondansetron/PF 4mg/2ml inj IV PRN (10:05)
[2024-06-25] MEDS: ringers solution, lacted 1,000 ML IV SCH (11:16)
[2024-06-25 16:15] LABS: BASOPHILS % (AUTO) 0.5 % (0-1); EOSINOPHILS % (AUTO) 0.1 % (0-6); HEMATOCRIT 26.9 % (42.0-52.0); HEMOGLOBIN 8.8 g/dl (14.0-17.9); LYMPHOCYTES # (AUTO) 0.3 X10'3 (1.1-4.8); LYMPHOCYTES % (AUTO) 6.1 % (21-51); MEAN CORPUSCULAR HEMOGLOBIN 35.4 PG (27.0-31.0); MEAN CORPUSCULAR HGB CONC 32.8 g/dL (33.0-36.5); MEAN PLATELET VOLUME 7.9 FL (7.4-10.4); MONOCYTES # (AUTO) 0.5 X10'3 (0-0.9); MONOCYTES % (AUTO) 11.8 % (2-12); NEUTROPHILS # (AUTO) 3.8 X10'3 (1.8-7.7); NEUTROPHILS % (AUTO) 81.5 % (42-75); PLATELET COUNT 161 X10'3 (140-440); RED BLOOD COUNT 2.49 X10'6 (4.70-6.10); RED CELL DISTRIBUTION WIDTH 18.4 % (11.5-14.5); WHITE BLOOD COUNT 4.6 X10'3 (4.5-11.0)
[2024-06-25 16:30] LABS: ALANINE AMINOTRANSFERASE 94 U/L (12-78); ALBUMIN 2.9 G/DL (3.4-5.0); ALBUMIN/GLOBULIN RATIO 0.9 (1.1-1.5); ALKALINE PHOSPHATASE 218 IU/L (46-116); ANION GAP 17 (8-16); ASPARTATE AMINO TRANSFERASE 191 U/L (10-37); BILIRUBIN,TOTAL 0.6 MG/DL (0.1-1.0); BLOOD UREA NITROGEN 24 MG/DL (7-18); BUN/CREATININE RATIO 11.1 (10.0-20.0); CALCIUM 8.1 MG/DL (8.5-10.1); CHLORIDE 117 MMOL/L (99-107); CREATININE 2.16 MG/DL (0.60-1.10); GLUCOSE 181 MG/DL (70-104); MAGNESIUM 2.1 MG/DL (1.5-2.4); SODIUM 148 MMOL/L (135-145); eCRCL 26 ML/MIN; eGFR 31 ML/MIN
[2024-06-25 16:47] LABS: TOTAL CARBON DIOXIDE 14.2 MMOL/L (24-32)
[2024-06-25] MEDS ORDERED: Insulin Reg/NS 100units/100mL 100 ML IV SCH (17:20)
[2024-06-25] MEDS ORDERED: dextrose 50%-water 50ml dispensing syringe IV PRN (17:20)
[2024-06-25] MEDS ORDERED: niCARDipine-NS 40mg/200ml IVPB 200 ML IV SCH (17:20)
[2024-06-25] MEDS: INSULIN LISPRO 100 UNIT/ML INSULN.PEN MULTI-DOSE SQ SCH (18:00)
[2024-06-25 18:18] LABS: OSMOLALITY 315 MOSM/K (280-300)
[2024-06-25 18:39] LABS: PRO BRAIN NATRIURETIC PEPTIDE 3004 PG/ML (0-125)
[2024-06-25] MEDS: amLODIPine 5mg tablet PO ONE (19:55)
[2024-06-25 21:55] LABS: ABG BASE EXCESS -15.9 mmol/L (-2.0-3.0); ABG HCO3 11.2 mmol/L (21.0-28.0); ABG OXYGEN SATURATION 96.9 % (94.0-98.0); ABG PCO2 (T) 30.5 mmHg (35.0-48.0); ABG PH (T) 7.182 (7.350-7.450); ABG PO2 (T) 94.4 mmHg (83.0-108.0); ALLEN'S TEST Modified; FCOHb 0.3 % (0.5-1.5); FHHb 3.1 % (0.0-5.0); FMetHb 0.3 % (0.0-1.5); FO2Hb 96.3 % (94.0-98.0); MODE ROOM AIR; PATIENT TEMPERATURE 36.6; TOTAL HEMOGLOBIN 10.2 G/dl (13.5-17.5)
[2024-06-25 22:03] LABS: ALBUMIN 3.3 G/DL (3.4-5.0); ANION GAP 19 (8-16); BLOOD UREA NITROGEN 22 MG/DL (7-18); BUN/CREATININE RATIO 9.1 (10.0-20.0); CALCIUM 8.3 MG/DL (8.5-10.1); CHLORIDE 116 MMOL/L (99-107); CREATININE 2.41 MG/DL (0.60-1.10); GLUCOSE 193 MG/DL (70-104); POTASSIUM 4.8 MMOL/L (3.5-5.1); SODIUM 148 MMOL/L (135-145); eCRCL 23 ML/MIN; eGFR 27 ML/MIN
[2024-06-25 22:07] LABS: TOTAL CARBON DIOXIDE 12.9 MMOL/L (24-32)
[2024-06-26] MEDS: sodium bicarbonate 1meq/ml inj 150 ML in dextrose 5%-water 1,000 ML IV SCH (01:20)
[2024-06-26 04:43] LABS: BILIRUBIN,URINE NEGATIVE (Neg); CLARITY,URINE CLEAR (Clear); COLOR,URINE YELLOW (Yellow); GLUCOSE, URINE >=1000 mg/dl (Neg); KETONES,URINE 40 mg/dl (Neg); LEUKOCYTE ESTERASE ,URINE NEGATIVE (Neg); NITRITES, URINE NEGATIVE (Neg); OCCULT BLOOD,URINE MODERATE (Neg); PROTEIN,URINE TRACE mg/dl (Neg); UROBILINOGEN,URINE 0.2 E.U/dL (0.2-1.0)
[2024-06-26 04:47] LABS: UA COLLECTION TYPE FOLEY CATH
[2024-06-26 04:51] LABS: BACTERIA,URINE FEW /HPF (Neg); SQUAMOUS EPITHELIAL CELL,UR FEW /LPF (FEW); WBC,URINE 0-4 /HPF (0-4)
[2024-06-26 07:09] LABS: ALANINE AMINOTRANSFERASE 96 U/L (12-78); ALBUMIN 3.2 G/DL (3.4-5.0); ALBUMIN/GLOBULIN RATIO 0.9 (1.1-1.5); ALKALINE PHOSPHATASE 211 IU/L (46-116); ANION GAP 17 (8-16); ASPARTATE AMINO TRANSFERASE 214 U/L (10-37); BILIRUBIN,TOTAL 0.6 MG/DL (0.1-1.0); BLOOD UREA NITROGEN 21 MG/DL (7-18); BUN/CREATININE RATIO 9.3 (10.0-20.0); CALCIUM 8.1 MG/DL (8.5-10.1); CHLORIDE 115 MMOL/L (99-107); CREATININE 2.25 MG/DL (0.60-1.10); GLUCOSE 233 MG/DL (70-104); POTASSIUM 4.7 MMOL/L (3.5-5.1); SODIUM 150 MMOL/L (135-145); TOTAL CARBON DIOXIDE 18.5 MMOL/L (24-32); TOTAL PROTEIN 6.6 G/DL (6.4-8.2); eCRCL 25 ML/MIN; eGFR 29 ML/MIN
[2024-06-26 07:13] LABS: BASOPHILS % (AUTO) 0.3 % (0-1); EOSINOPHILS % (AUTO) 0.1 % (0-6); HEMATOCRIT 28.1 % (42.0-52.0); HEMOGLOBIN 9.3 g/dl (14.0-17.9); LYMPHOCYTES # (AUTO) 0.4 X10'3 (1.1-4.8); LYMPHOCYTES % (AUTO) 7.1 % (21-51); MEAN CORPUSCULAR HEMOGLOBIN 34.8 PG (27.0-31.0); MEAN CORPUSCULAR HGB CONC 32.9 g/dL (33.0-36.5); MEAN CORPUSCULAR VOLUME 105.6 FL (78-98); MEAN PLATELET VOLUME 7.9 FL (7.4-10.4); MONOCYTES # (AUTO) 0.6 X10'3 (0-0.9); MONOCYTES % (AUTO) 11.7 % (2-12); NEUTROPHILS # (AUTO) 4.2 X10'3 (1.8-7.7); NEUTROPHILS % (AUTO) 80.8 % (42-75); PLATELET COUNT 202 X10'3 (140-440); RED BLOOD COUNT 2.66 X10'6 (4.70-6.10); RED CELL DISTRIBUTION WIDTH 17.7 % (11.5-14.5); WHITE BLOOD COUNT 5.2 X10'3 (4.5-11.0)
[2024-06-26 10:00] VITALS: BP 157/79; PULSE 124; RESP 16; TEMP 97.9; O2SAT 98
[2024-06-26] MEDS ORDERED: lactulose 20gm/30ml cup PO PRN (15:55)
[2024-06-26] MEDS ORDERED: mineral oil 133ml enema RC PRN (15:55)
[2024-06-26] MEDS ORDERED: glycerin ADULT rectal suppository RC PRN (15:55)
[2024-06-26] MEDS ORDERED: bisacodyl 5mg tablet.DR PO PRN (16:00)
[2024-06-26] MEDS ORDERED: bisacodyl 10mg suppository rectal RC PRN (16:00)
[2024-06-26] MEDS: magnesium hydroxide 30ml (MOM) UD suspension PO PRN (16:11)
[2024-06-26] MEDS: magnesium citrate 296ml oral solution PO ONE (16:26)
[2024-06-26] MEDS: bisacodyl 10mg suppository rectal RC PRN (16:31)
[2024-06-26 20:38] LABS: ABG BASE EXCESS -2.6 mmol/L (-2.0-3.0); ABG PCO2 (T) 31.2 mmHg (35.0-48.0); ABG PH (T) 7.443 (7.350-7.450); ABG PO2 (T) 93.6 mmHg (83.0-108.0); ALLEN'S TEST Modified; FCOHb 0.3 % (0.5-1.5); FMetHb 0.3 % (0.0-1.5); FO2Hb 97.4 % (94.0-98.0); MODE ROOM AIR; PATIENT TEMPERATURE 36.3; TOTAL HEMOGLOBIN 9.9 G/dl (13.5-17.5)
[2024-06-26 20:41] LABS: OSMOLALITY 325.5 MOSM/K (280-300)
[2024-06-26 20:57] LABS: ALBUMIN 3.1 G/DL (3.4-5.0); ANION GAP 15 (8-16); BLOOD UREA NITROGEN 20 MG/DL (7-18); BUN/CREATININE RATIO 9.4 (10.0-20.0); CALCIUM 7.9 MG/DL (8.5-10.1); CHLORIDE 114 MMOL/L (99-107); CREATININE 2.12 MG/DL (0.60-1.10); GLUCOSE 308 MG/DL (70-104); LIPASE 153 U/L (16-77); POTASSIUM 4.1 MMOL/L (3.5-5.1); SODIUM 152 MMOL/L (135-145); TOTAL CARBON DIOXIDE 23.5 MMOL/L (24-32); eCRCL 26 ML/MIN; eGFR 31 ML/MIN
[2024-06-26] MEDS: polyethylene glycol 3350 17gm powd pack PO SCH (21:00)
[2024-06-26 21:02] LABS: CREATINE KINASE 4252 U/L (39-308)
[2024-06-26] MEDS: sodium chloride 0.45% 1,000 ML IV SCH (21:31)
[2024-06-26 22:00] VITALS: BP 147/81; PULSE 119; RESP 15; TEMP 99.1; O2SAT 98
[2024-06-26 22:34] LABS: BILIRUBIN,URINE NEGATIVE (Neg); CLARITY,URINE CLEAR (Clear); COLOR,URINE YELLOW (Yellow); GLUCOSE, URINE >=1000 mg/dl (Neg); KETONES,URINE 40 mg/dl (Neg); LEUKOCYTE ESTERASE ,URINE NEGATIVE (Neg); NITRITES, URINE NEGATIVE (Neg); OCCULT BLOOD,URINE SMALL (Neg); PROTEIN,URINE TRACE mg/dl (Neg); UROBILINOGEN,URINE 0.2 E.U/dL (0.2-1.0)
[2024-06-26 22:52] LABS: SQUAMOUS EPITHELIAL CELL,UR FEW /LPF (FEW); UA COLLECTION TYPE FOLEY CATH
[2024-06-26 22:53] LABS: BACTERIA,URINE FEW /HPF (Neg); RBC,URINE 0-2 /HPF (0-2); WBC,URINE 0-4 /HPF (0-4)
[2024-06-27] VITALS (17 sets, daily range): BP systolic 149–184; BP diastolic 72–91; PULSE 87–124; RESP 11–26; TEMP 97.6–101.6; O2SAT 94–100
[2024-06-27] MEDS: hydrALAZINE 20mg/ml inj. IV ONE (05:42)
[2024-06-27] MEDS: acetaminophen 1,000mg/100ml IV 100 ML IV PRN (06:01)
[2024-06-27 09:55] LABS: BASOPHILS % (AUTO) 0.3 % (0-1); EOSINOPHILS % (AUTO) 0.5 % (0-6); HEMATOCRIT 27.7 % (42.0-52.0); HEMOGLOBIN 9.7 g/dl (14.0-17.9); LYMPHOCYTES # (AUTO) 0.2 X10'3 (1.1-4.8); LYMPHOCYTES % (AUTO) 2.5 % (21-51); MEAN CORPUSCULAR HEMOGLOBIN 35.4 PG (27.0-31.0); MEAN CORPUSCULAR HGB CONC 34.9 g/dL (33.0-36.5); MEAN CORPUSCULAR VOLUME 101.6 FL (78-98); MEAN PLATELET VOLUME 7.9 FL (7.4-10.4); MONOCYTES # (AUTO) 0.6 X10'3 (0-0.9); MONOCYTES % (AUTO) 9.5 % (2-12); NEUTROPHILS # (AUTO) 5.3 X10'3 (1.8-7.7); NEUTROPHILS % (AUTO) 87.2 % (42-75); PLATELET COUNT 177 X10'3 (140-440); RED BLOOD COUNT 2.73 X10'6 (4.70-6.10); RED CELL DISTRIBUTION WIDTH 16.6 % (11.5-14.5)
[2024-06-27 10:03] LABS: ALANINE AMINOTRANSFERASE 84 U/L (12-78); ALBUMIN 2.7 G/DL (3.4-5.0); ALBUMIN/GLOBULIN RATIO 0.8 (1.1-1.5); ALKALINE PHOSPHATASE 159 IU/L (46-116); ANION GAP 13 (8-16); ASPARTATE AMINO TRANSFERASE 129 U/L (10-37); BILIRUBIN,TOTAL 0.8 MG/DL (0.1-1.0); BLOOD UREA NITROGEN 19 MG/DL (7-18); BUN/CREATININE RATIO 9.7 (10.0-20.0); CALCIUM 8.3 MG/DL (8.5-10.1); CHLORIDE 113 MMOL/L (99-107); CREATININE 1.96 MG/DL (0.60-1.10); GLUCOSE 307 MG/DL (70-104); SODIUM 150 MMOL/L (135-145); TOTAL CARBON DIOXIDE 23.8 MMOL/L (24-32); eCRCL 28 ML/MIN; eGFR 34 ML/MIN
[2024-06-27] MEDS: diazepam inj 5 MG/ML inj. IV PRN (11:59)
[2024-06-27] MEDS ORDERED: potassium Cl 20 mEq SR tablet PO PRN ×2 (15:05)
[2024-06-27] MEDS ORDERED: magnesium Cl slow-release 64mg tablet PO PRN (15:05)
[2024-06-27] MEDS ORDERED: Dextrose 10%-water IV solution 1,000 ML IV PRN (15:05)
[2024-06-27] MEDS ORDERED: magnesium sulf-water 2g/50mL 50 ML IV PRN (15:05)
[2024-06-27] MEDS ORDERED: Neutra Phos packet PO PRN ×2 (15:05→18:05)
[2024-06-27] MEDS ORDERED: magnesium sulf-water 4G/100mL 100 ML IV PRN (15:05)
[2024-06-27] MEDS ORDERED: sodium phosphate inj. 15 MMOL in dextrose 5%-water 250 ML IV PRN ×2 (15:05→18:05)
[2024-06-27 16:24] LABS: ALANINE AMINOTRANSFERASE 85 U/L (12-78); ALBUMIN 2.8 G/DL (3.4-5.0); ALBUMIN/GLOBULIN RATIO 0.8 (1.1-1.5); ALKALINE PHOSPHATASE 151 IU/L (46-116); ANION GAP 9 (8-16); ASPARTATE AMINO TRANSFERASE 128 U/L (10-37); BILIRUBIN,TOTAL 0.8 MG/DL (0.1-1.0); BLOOD UREA NITROGEN 23 MG/DL (7-18); BUN/CREATININE RATIO 12.6 (10.0-20.0); CALCIUM 8.6 MG/DL (8.5-10.1); CHLORIDE 115 MMOL/L (99-107); CREATININE 1.82 MG/DL (0.60-1.10); GLUCOSE 300 MG/DL (70-104); MAGNESIUM 2.4 MG/DL (1.5-2.4); PHOSPHORUS 2.1 MG/DL (2.3-4.5); POTASSIUM 3.8 MMOL/L (3.5-5.1); PREALBUMIN 16.1 MG/DL (19-36); SODIUM 150 MMOL/L (135-145); TOTAL CARBON DIOXIDE 25.6 MMOL/L (24-32); TOTAL PROTEIN 6.2 G/DL (6.4-8.2); TRIGLYCERIDES 53 MG/DL (20-135); eCRCL 30 ML/MIN; eGFR 37 ML/MIN
[2024-06-27] MEDS ORDERED: HYDROmorphone/PF 0.2 MG/ML SYRINGE IV PRN ×2 (16:55)
[2024-06-27] MEDS ORDERED: ondansetron/PF 4mg/2ml inj IV PRN (16:55)
[2024-06-27] MEDS: ringers solution, lacted 1,000 ML IV SCH (16:55)
[2024-06-27] MEDS ORDERED: hydrALAZINE 20mg/ml inj. IV PRN (16:55)
[2024-06-27] MEDS ORDERED: labetalol 20mg/4ml (5mg/ml) syringe IV PRN (16:55)
[2024-06-27] MEDS ORDERED: fentaNYL/PF 50MCG/1 ML 2ML syringe IV PRN (16:55)
[2024-06-27] MEDS ORDERED: sodium phosphate inj. 30 MMOL in dextrose 5%-water 250 ML IV PRN (18:05)
[2024-06-27] MEDS ORDERED: sevoflurane 250ml liquid IH ONE (18:35)
[2024-06-27] MEDS ORDERED: fentaNYL/PF 50MCG/1 ML 2ML syringe ONE ×2 (18:38→19:27)
[2024-06-27] MEDS ORDERED: ondansetron/PF 4mg/2ml inj ONE (18:38)
[2024-06-27] MEDS ORDERED: dexamethasone sod phosphate 4mg/ml inj. ONE (18:38)
[2024-06-27] MEDS ORDERED: midazolam 1 mg/ML 2ml injection ONE (18:38)
[2024-06-27] MEDS ORDERED: sugammadex 200mg/2ml injection IV ONE (18:38)
[2024-06-27] MEDS ORDERED: LIDOcaine 2% (20mg/ml) 5ml vial ONE (18:39)
[2024-06-27] MEDS ORDERED: rocuronium 10mg/ml inj IV ONE ×2 (18:39→19:28)
[2024-06-27] MEDS ORDERED: propofol inj 20 ML IV ONE (18:39)
[2024-06-27] MEDS ORDERED: albumin (Human) 5% 250ml 250 ML IV ONE (19:14)
[2024-06-27] MEDS ORDERED: ceFAZolin 1000mg inj ONE ×2 (19:20)
[2024-06-27] MEDS ORDERED: BUPIVAcaine 2.5mg/ml inj 50ml vial (contains preservative) ONE (19:36)
[2024-06-27] MEDS: ZINC/COPPER/MANGANESE/SELENIUM 1 ML, chromic chloride inj. 10 MCG in AMINO ACIDS 5 %/DE... IV SCH (20:00)
[2024-06-27] MEDS: K and/or MAG REPLACEMENT MC SCH (20:00)
[2024-06-27] MEDS: fentaNYL/PF 50MCG/1 ML 2ML syringe IV PRN (20:25)
[2024-06-27] MEDS: MVI, adult No.4 with vit. K 10 ML in dextrose 5% water 500ml 500 ML IV SCH (21:54)
[2024-06-27] MEDS: fat emulsion 20% inj. 100 ML IV SCH (22:01)
[2024-06-28] VITALS (8 sets, daily range): BP systolic 145–169; BP diastolic 78–85; PULSE 110–119; RESP 13–24; TEMP 97.8–100.4; O2SAT 90–100
[2024-06-28] MEDS: LORazepam 2 mg/ml vial IV PRN (00:40)
[2024-06-28] MEDS ORDERED: Dextrose 10%-water IV solution 1,000 ML IV SCH (04:50)
[2024-06-28] MEDS ORDERED: DEXTROSE 15 GM of carb/4 tabs (each vial/BOTTLE has 4 tablets) PO PRN ×2 (04:50)
[2024-06-28] MEDS ORDERED: dextrose 50%-water 50ml dispensing syringe IV PRN ×2 (04:50)
[2024-06-28] MEDS ORDERED: glucagon, human recombinant 1mg kit SUBCUT PRN (04:50)
[2024-06-28] MEDS: insulin regular, human U-100 10ml vial - multi-dose SQ SCH ×2 (05:36→08:28)
[2024-06-28] MEDS: ondansetron/PF 4mg/2ml inj IV PRN (06:36)
[2024-06-28 09:15] LABS: ALANINE AMINOTRANSFERASE 64 U/L (12-78); ALBUMIN 2.7 G/DL (3.4-5.0); ALBUMIN/GLOBULIN RATIO 0.9 (1.1-1.5); ALKALINE PHOSPHATASE 110 IU/L (46-116); ANION GAP 13 (8-16); ASPARTATE AMINO TRANSFERASE 97 U/L (10-37); BILIRUBIN,TOTAL 0.7 MG/DL (0.1-1.0); BLOOD UREA NITROGEN 29 MG/DL (7-18); BUN/CREATININE RATIO 16.7 (10.0-20.0); CALCIUM 7.8 MG/DL (8.5-10.1); CHLORIDE 112 MMOL/L (99-107); CREATININE 1.74 MG/DL (0.60-1.10); POTASSIUM 3.1 MMOL/L (3.5-5.1); SODIUM 147 MMOL/L (135-145); TOTAL PROTEIN 5.7 G/DL (6.4-8.2); eCRCL 32 ML/MIN; eGFR 39 ML/MIN
[2024-06-28 09:18] LABS: GLUCOSE 463 MG/DL (70-104); PHOSPHORUS 0.8 MG/DL (2.3-4.5)
[2024-06-28] MEDS ORDERED: acetaminophen 1,000mg/100ml IV 100 ML IV PRN (10:45)
[2024-06-28] MEDS: sodium phosphate inj. 30 MMOL in dextrose 5%-water 250 ML IV PRN (10:48)
[2024-06-28] MEDS: potassium Cl 40MEQ/1/2NS 520ml 520 ML IV PRN (10:56)
[2024-06-28 19:48] LABS: PHOSPHORUS 1.9 MG/DL (2.3-4.5)
[2024-06-28] MEDS: [UNRECOGNIZED DRUG - OTHER] IV SCH (20:30)
[2024-06-28] MEDS: COPPER IV SCH (20:30)
[2024-06-28] MEDS: AMINO ACIDS IV SCH (20:30)
[2024-06-28] MEDS: ZINC IV SCH (20:30)
[2024-06-28] MEDS: DEXTROSE 20% IV SCH (20:30)
[2024-06-28] MEDS: MANGANESE IV SCH (20:30)
[2024-06-28] MEDS: SELENIUM IV SCH (20:30)
[2024-06-29 00:36] LABS: ALANINE AMINOTRANSFERASE 52 U/L (12-78); ALBUMIN 2.6 G/DL (3.4-5.0); ALBUMIN/GLOBULIN RATIO 0.9 (1.1-1.5); ALKALINE PHOSPHATASE 98 IU/L (46-116); ANION GAP 6 (8-16); ASPARTATE AMINO TRANSFERASE 75 U/L (10-37); BILIRUBIN,TOTAL 0.6 MG/DL (0.1-1.0); BLOOD UREA NITROGEN 25 MG/DL (7-18); BUN/CREATININE RATIO 15.8 (10.0-20.0); CALCIUM 7.4 MG/DL (8.5-10.1); CHLORIDE 118 MMOL/L (99-107); CREATININE 1.58 MG/DL (0.60-1.10); GLUCOSE 174 MG/DL (70-104); MAGNESIUM 1.7 MG/DL (1.5-2.4); PHOSPHORUS 1.3 MG/DL (2.3-4.5); POTASSIUM 3.1 MMOL/L (3.5-5.1); SODIUM 152 MMOL/L (135-145); TOTAL CARBON DIOXIDE 28.1 MMOL/L (24-32); TOTAL PROTEIN 5.5 G/DL (6.4-8.2); eCRCL 35 ML/MIN; eGFR 44 ML/MIN
[2024-06-29] MEDS ORDERED: sodium phosphate inj. 15 MMOL in dextrose 5%-water 250 ML IV PRN (01:40)
[2024-06-29] MEDS: sodium phosphate inj. 30 MMOL in dextrose 5%-water 250 ML IV PRN (01:41)
[2024-06-29 06:00] VITALS: BP 154/93; PULSE 112; RESP 22; TEMP 98.6; O2SAT 100
[2024-06-29 10:48] VITALS: BP 154/92; PULSE 113; RESP 18; TEMP 98.2; O2SAT 96
[2024-06-29 11:25] LABS: BASOPHILS % (AUTO) 0.2 % (0-1); EOSINOPHILS % (AUTO) 0.5 % (0-6); HEMATOCRIT 29.3 % (42.0-52.0); HEMOGLOBIN 10.1 g/dl (14.0-17.9); LYMPHOCYTES # (AUTO) 0.6 X10'3 (1.1-4.8); LYMPHOCYTES % (AUTO) 7.7 % (21-51); MEAN CORPUSCULAR HEMOGLOBIN 34.7 PG (27.0-31.0); MEAN CORPUSCULAR HGB CONC 34.5 g/dL (33.0-36.5); MEAN CORPUSCULAR VOLUME 100.5 FL (78-98); MONOCYTES # (AUTO) 0.4 X10'3 (0-0.9); MONOCYTES % (AUTO) 5.3 % (2-12); NEUTROPHILS # (AUTO) 6.3 X10'3 (1.8-7.7); NEUTROPHILS % (AUTO) 86.3 % (42-75); PLATELET COUNT 178 X10'3 (140-440); RED BLOOD COUNT 2.92 X10'6 (4.70-6.10); RED CELL DISTRIBUTION WIDTH 16.6 % (11.5-14.5); WHITE BLOOD COUNT 7.3 X10'3 (4.5-11.0)
[2024-06-29 11:43] LABS: ALBUMIN 2.7 G/DL (3.4-5.0); ANION GAP 6 (8-16); BLOOD UREA NITROGEN 21 MG/DL (7-18); BUN/CREATININE RATIO 15.1 (10.0-20.0); CALCIUM 7.5 MG/DL (8.5-10.1); CHLORIDE 118 MMOL/L (99-107); CREATININE 1.39 MG/DL (0.60-1.10); GLUCOSE 207 MG/DL (70-104); PHOSPHORUS 1.7 MG/DL (2.3-4.5); POTASSIUM 3.1 MMOL/L (3.5-5.1); SODIUM 151 MMOL/L (135-145); TOTAL CARBON DIOXIDE 26.6 MMOL/L (24-32); eCRCL 38 ML/MIN; eGFR 51 ML/MIN
[2024-06-29] MEDS: furosemide 20 MG/2 ML vial IV SCH (13:43)
[2024-06-29 14:30] VITALS: BP 158/98; PULSE 124; O2SAT 97
[2024-06-29 14:36] LABS: BILIRUBIN,URINE NEGATIVE (Neg); CLARITY,URINE CLEAR (Clear); COLOR,URINE YELLOW (Yellow); GLUCOSE, URINE >=1000 mg/dl (Neg); KETONES,URINE NEGATIVE (Neg); LEUKOCYTE ESTERASE ,URINE NEGATIVE (Neg); NITRITES, URINE NEGATIVE (Neg); OCCULT BLOOD,URINE SMALL (Neg); PROTEIN,URINE TRACE mg/dl (Neg); UROBILINOGEN,URINE 0.2 E.U/dL (0.2-1.0)
[2024-06-29 14:42] LABS: UA COLLECTION TYPE FOLEY CATH
[2024-06-29 14:44] LABS: BACTERIA,URINE FEW /HPF (Neg); RBC,URINE 0-2 /HPF (0-2); SQUAMOUS EPITHELIAL CELL,UR FEW /LPF (FEW); WBC,URINE 0-4 /HPF (0-4)
[2024-06-29 14:51] LABS: OSMOLALITY 317 MOSM/K (280-300)
[2024-06-29 15:02] LABS: ALANINE AMINOTRANSFERASE 50 U/L (12-78); ALBUMIN 2.6 G/DL (3.4-5.0); ALBUMIN/GLOBULIN RATIO 0.8 (1.1-1.5); ALKALINE PHOSPHATASE 101 IU/L (46-116); ANION GAP 7 (8-16); ASPARTATE AMINO TRANSFERASE 64 U/L (10-37); BILIRUBIN,TOTAL 0.7 MG/DL (0.1-1.0); BLOOD UREA NITROGEN 23 MG/DL (7-18); BUN/CREATININE RATIO 16.8 (10.0-20.0); CALCIUM 7.9 MG/DL (8.5-10.1); CHLORIDE 116 MMOL/L (99-107); CREATININE 1.37 MG/DL (0.60-1.10); GLUCOSE 246 MG/DL (70-104); POTASSIUM 3.5 MMOL/L (3.5-5.1); SODIUM 148 MMOL/L (135-145); TOTAL CARBON DIOXIDE 24.6 MMOL/L (24-32); TOTAL PROTEIN 5.7 G/DL (6.4-8.2); eCRCL 38 ML/MIN; eGFR 52 ML/MIN
[2024-06-29 16:33] VITALS: BP 158/94; PULSE 125
[2024-06-29 20:00] VITALS: RESP 18; O2SAT 95
[2024-06-30] MEDS: HYDROmorphone 1 mg/ml syringe IV PRN (00:01)
[2024-06-30 06:00] VITALS: BP 130/79; PULSE 112; RESP 20; TEMP 98.5; O2SAT 97
[2024-06-30 10:00] VITALS: BP 155/98; PULSE 96; RESP 21; TEMP 97.7; O2SAT 99
[2024-06-30] MEDS ORDERED: magnesium Cl slow-release 64mg tablet PO PRN (13:40)
[2024-06-30] MEDS ORDERED: magnesium sulf-water 2g/50mL 50 ML IV PRN (13:40)
[2024-06-30] MEDS ORDERED: magnesium sulf-water 4G/100mL 100 ML IV PRN (13:40)
[2024-06-30] MEDS ORDERED: potassium Cl 20 mEq SR tablet PO PRN ×2 (13:40)
[2024-06-30] MEDS ORDERED: potassium Cl 40MEQ/1/2NS 520ml 520 ML IV PRN (13:40)
[2024-06-30] MEDS: HYDROmorphone inj. 0.5 MG/0.5 ML DISP.SYRIN IV PRN (14:14)
[2024-06-30 17:04] VITALS: RESP 21; O2SAT 99
[2024-06-30 20:00] VITALS: RESP 18
[2024-07-01 06:00] VITALS: BP 140/82; PULSE 103; RESP 16; TEMP 99.2; O2SAT 90
[2024-07-01] MEDS ORDERED: INSULIN LISPRO 100 UNIT/ML INSULN.PEN MULTI-DOSE SQ SCH (07:00)
[2024-07-01] MEDS: insulin regular, human U-100 10ml vial - multi-dose SQ SCH ×2 (08:52→14:00)
[2024-07-01] MEDS: insulin glargine (Lantus) pen - multi-dose SQ ONE (09:59)
[2024-07-01 10:39] LABS: ANION GAP 12 (8-16); BILIRUBIN,TOTAL 0.7 MG/DL (0.1-1.0); BLOOD UREA NITROGEN 50 MG/DL (7-18); BUN/CREATININE RATIO 26.2 (10.0-20.0); CALCIUM 8.6 MG/DL (8.5-10.1); CHLORIDE 112 MMOL/L (99-107); CREATININE 1.91 MG/DL (0.60-1.10); SODIUM 149 MMOL/L (135-145); TOTAL CARBON DIOXIDE 25.2 MMOL/L (24-32); TOTAL PROTEIN 6.7 G/DL (6.4-8.2); eCRCL 26 ML/MIN; eGFR 35 ML/MIN
[2024-07-01 10:40] LABS: ALANINE AMINOTRANSFERASE 36 U/L (12-78); ALBUMIN 2.8 G/DL (3.4-5.0); ALBUMIN/GLOBULIN RATIO 0.7 (1.1-1.5); ALKALINE PHOSPHATASE 93 IU/L (46-116); ASPARTATE AMINO TRANSFERASE 29 U/L (10-37); PREALBUMIN 14.4 MG/DL (19-36); TRIGLYCERIDES 115 MG/DL (20-135)
[2024-07-01 11:00] VITALS: BP 120/72; PULSE 121; RESP 16; TEMP 99.6; O2SAT 91
[2024-07-01 11:44] LABS: GLUCOSE 597 MG/DL (70-104); POTASSIUM 2.9 MMOL/L (3.5-5.1)
[2024-07-01] MEDS: INSULIN LISPRO 100 UNIT/ML INSULN.PEN MULTI-DOSE SQ SCH ×2 (12:20→20:24)
[2024-07-01] MEDS: INSULIN LISPRO 100 UNIT/ML INSULN.PEN MULTI-DOSE SQ ONE (13:00)
[2024-07-01] MEDS: Potassium Cl 40 MEQ in sodium chloride 0.45% 500 ML IV ONE ×3 (13:07→23:41)
[2024-07-01 16:01] LABS: ALBUMIN 2.7 G/DL (3.4-5.0); ANION GAP 11 (8-16); BLOOD UREA NITROGEN 48 MG/DL (7-18); BUN/CREATININE RATIO 26.2 (10.0-20.0); CALCIUM 8.6 MG/DL (8.5-10.1); CHLORIDE 111 MMOL/L (99-107); CREATININE 1.83 MG/DL (0.60-1.10); POTASSIUM 3.2 MMOL/L (3.5-5.1); SODIUM 147 MMOL/L (135-145); TOTAL CARBON DIOXIDE 25.4 MMOL/L (24-32); eCRCL 26 ML/MIN; eGFR 37 ML/MIN
[2024-07-01 16:08] LABS: GLUCOSE 603 MG/DL (70-104)
[2024-07-01] MEDS ORDERED: potassium Cl 40MEQ/1/2NS 520ml 520 ML IV PRN (16:25)
[2024-07-01 17:34] VITALS: BP 137/77; PULSE 111; RESP 19; TEMP 101.4; O2SAT 96
[2024-07-01 18:00] LABS: ABG BASE EXCESS -0.1 mmol/L (-2.0-3.0); ABG HCO3 22.2 mmol/L (21.0-28.0); ABG OXYGEN SATURATION 93.9 % (94.0-98.0); ABG PCO2 (T) 29.5 mmHg (35.0-48.0); ABG PH (T) 7.498 (7.350-7.450); ABG PO2 (T) 69.3 mmHg (83.0-108.0); ALLEN'S TEST POSITIVE; FHHb 6.1 % (0.0-5.0); FMetHb 0.3 % (0.0-1.5); FO2Hb 93.6 % (94.0-98.0); MODE ROOM AIR; PATIENT TEMPERATURE 37.6; TOTAL HEMOGLOBIN 10.4 G/dl (13.5-17.5)
[2024-07-01 18:20] LABS: BILIRUBIN,URINE NEGATIVE (Neg); CLARITY,URINE CLEAR (Clear); COLOR,URINE YELLOW (Yellow); GLUCOSE, URINE >=1000 mg/dl (Neg); KETONES,URINE NEGATIVE (Neg); LEUKOCYTE ESTERASE ,URINE NEGATIVE (Neg); NITRITES, URINE NEGATIVE (Neg); OCCULT BLOOD,URINE SMALL (Neg); PROTEIN,URINE 30 mg/dl (Neg); UROBILINOGEN,URINE 0.2 E.U/dL (0.2-1.0)
[2024-07-01 18:26] LABS: UA COLLECTION TYPE NON-SPECIFIED
[2024-07-01 18:30] VITALS: BP 152/77; PULSE 103; RESP 12; TEMP 97.5; O2SAT 95
[2024-07-01 18:31] LABS: RBC,URINE 0-2 /HPF (0-2); WBC,URINE 0-4 /HPF (0-4)
[2024-07-01 18:32] LABS: AMORPHOUS URATES 1+; BACTERIA,URINE NONE SEEN /HPF (Neg); MUCUS STRANDS FEW /LPF (Neg); SQUAMOUS EPITHELIAL CELL,UR NONE SEEN /LPF (FEW)
[2024-07-01] MEDS ORDERED: insulin regular, human 10 units/0.1 ml syringe IV PRN (18:50)
[2024-07-01 18:55] LABS: ALBUMIN 2.6 G/DL (3.4-5.0); ANION GAP 10 (8-16); BLOOD UREA NITROGEN 50 MG/DL (7-18); BUN/CREATININE RATIO 24.6 (10.0-20.0); CALCIUM 8.2 MG/DL (8.5-10.1); CHLORIDE 114 MMOL/L (99-107); CREATININE 2.03 MG/DL (0.60-1.10); POTASSIUM 4.2 MMOL/L (3.5-5.1); SODIUM 148 MMOL/L (135-145); TOTAL CARBON DIOXIDE 24.5 MMOL/L (24-32); eCRCL 24 ML/MIN; eGFR 33 ML/MIN
[2024-07-01 19:11] LABS: GLUCOSE 750 MG/DL (70-104)
[2024-07-01] MEDS: ringers solution, lacted 1,000 ML IV STA (19:13)
[2024-07-01] MEDS ORDERED: dextrose 50%-water 50ml dispensing syringe IV PRN (19:35)
[2024-07-01] MEDS ORDERED: Insulin Reg/NS 100units/100mL 100 ML IV SCH (19:50)
[2024-07-01 20:00] VITALS: RESP 20; RESP 8; O2SAT 95
[2024-07-01] MEDS: Insulin Reg/NS 100units/100mL 100 ML IV SCH (20:18)
[2024-07-01] MEDS: ringers solution, lacted 1,000 ML IV SCH (20:24)
[2024-07-01 22:00] VITALS: BP 150/72; PULSE 85; RESP 20; TEMP 97.5; O2SAT 96
[2024-07-01 23:28] LABS: ALBUMIN 2.2 G/DL (3.4-5.0); ANION GAP 9 (8-16); BLOOD UREA NITROGEN 45 MG/DL (7-18); BUN/CREATININE RATIO 26.8 (10.0-20.0); CALCIUM 7.7 MG/DL (8.5-10.1); CHLORIDE 121 MMOL/L (99-107); CREATININE 1.68 MG/DL (0.60-1.10); POTASSIUM 3.7 MMOL/L (3.5-5.1); SODIUM 153 MMOL/L (135-145); TOTAL CARBON DIOXIDE 22.7 MMOL/L (24-32); eCRCL 28 ML/MIN; eGFR 41 ML/MIN
[2024-07-02] VITALS (8 sets, daily range): BP systolic 100–161; BP diastolic 47–84; PULSE 63–93; RESP 15–20; TEMP 97.4–98.6; O2SAT 93–100
[2024-07-02 00:08] LABS: GLUCOSE 463 MG/DL (70-104)
[2024-07-02] MEDS: MANGANESE IV SCH (02:00)
[2024-07-02] MEDS: DEXTROSE 20% IV SCH (02:00)
[2024-07-02] MEDS: SELENIUM IV SCH (02:00)
[2024-07-02] MEDS: ZINC IV SCH (02:00)
[2024-07-02] MEDS: AMINO ACIDS IV SCH (02:00)
[2024-07-02] MEDS: [UNRECOGNIZED DRUG - OTHER] IV SCH (02:00)
[2024-07-02] MEDS: COPPER IV SCH (02:00)
[2024-07-02 03:24] LABS: ALANINE AMINOTRANSFERASE 24 U/L (12-78); ALBUMIN/GLOBULIN RATIO 0.6 (1.1-1.5); ALKALINE PHOSPHATASE 69 IU/L (46-116); ANION GAP 8 (8-16); ASPARTATE AMINO TRANSFERASE 18 U/L (10-37); BILIRUBIN,TOTAL 0.6 MG/DL (0.1-1.0); BLOOD UREA NITROGEN 42 MG/DL (7-18); BUN/CREATININE RATIO 30.4 (10.0-20.0); CALCIUM 8.1 MG/DL (8.5-10.1); CHLORIDE 121 MMOL/L (99-107); CREATININE 1.38 MG/DL (0.60-1.10); GLUCOSE 345 MG/DL (70-104); POTASSIUM 4.4 MMOL/L (3.5-5.1); SODIUM 151 MMOL/L (135-145); TOTAL CARBON DIOXIDE 22.1 MMOL/L (24-32); TOTAL PROTEIN 5.5 G/DL (6.4-8.2); eCRCL 35 ML/MIN; eGFR 51 ML/MIN
[2024-07-02 03:34] LABS: FREE T4 (FREE THYROXINE) 1.48 NG/DL (0.73-1.40)
[2024-07-02 07:23] LABS: ALBUMIN 2.1 G/DL (3.4-5.0); ANION GAP 9 (8-16); BLOOD UREA NITROGEN 38 MG/DL (7-18); BUN/CREATININE RATIO 28.6 (10.0-20.0); CHLORIDE 122 MMOL/L (99-107); CREATININE 1.33 MG/DL (0.60-1.10); GLUCOSE 272 MG/DL (70-104); POTASSIUM 3.9 MMOL/L (3.5-5.1); SODIUM 154 MMOL/L (135-145); TOTAL CARBON DIOXIDE 23.5 MMOL/L (24-32); eCRCL 36 ML/MIN; eGFR 54 ML/MIN
[2024-07-02] MEDS ORDERED: insulin regular, human U-100 10ml vial - multi-dose SQ SCH (11:02)
[2024-07-02] MEDS ORDERED: piperacillin/tazo 3.375gm/50ml 50 ML IV SCH (19:00)
[2024-07-02] MEDS ORDERED: insulin glargine (Lantus) pen - multi-dose SQ SCH (21:00)
[2024-07-03] MEDS: insulin Lispro (HumaLOG) vial - multi-dose SQ SCH ×2 (01:22→03:45)
[2024-07-03 02:00] VITALS: BP 109/59; PULSE 80; RESP 19; TEMP 97.4; O2SAT 98
[2024-07-03 06:00] VITALS: BP 110/52; PULSE 65; RESP 18; TEMP 97.6; O2SAT 100
[2024-07-03 08:00] VITALS: RESP 17; O2SAT 97
[2024-07-03] MEDS ORDERED: ZOF4I IV (10:19)
[2024-07-03] MEDS ORDERED: MINE133E25 RC (10:19)
== END 2024-07-03 14:55 | disposition hospice, home (50) | DRG 263 ==
LOC: ER 01:49 → ED HOLD 07:28 → ORTHO 4S 06-22 08:17 → PCU 3S 07-01 19:31
PROVIDERS: ADMIT Nurse Practitioner Family; ATTEND Nurse Practitioner Family
PROC: 0FC98ZZ Extirpation of Matter from Common Bile Duct, Via Natural or Artificial Opening Endoscopic (ICD-10-PCS; 2024-06-25)
PROC: BF131ZZ Fluoroscopy of Gallbladder and Bile Ducts using Low Osmolar Contrast (ICD-10-PCS; 2024-06-25)
PROC: 8E0W4CZ Robotic Assisted Procedure of Trunk Region, Percutaneous Endoscopic Approach (ICD-10-PCS; 2024-06-27)
PROC: 05HM33Z Insertion of Infusion Device into Right Internal Jugular Vein, Percutaneous Approach (ICD-10-PCS; 2024-06-27)
PROC: B543ZZA Ultrasonography of Right Jugular Veins, Guidance (ICD-10-PCS; 2024-06-27)
PROC: 0FT44ZZ Resection of Gallbladder, Percutaneous Endoscopic Approach (ICD-10-PCS; principal; 2024-06-27 18:35)
DX: K80.62 Calculus of gallbladder and bile duct with acute cholecystitis without obstruction (principal); G93.41 Metabolic encephalopathy; A41.9 Sepsis, unspecified organism; E43 Unspecified severe protein-calorie malnutrition; K85.80 Other acute pancreatitis without necrosis or infection; N17.9 Acute kidney failure, unspecified; E11.22 Type 2 diabetes mellitus with diabetic chronic kidney disease; D64.9 Anemia, unspecified; R62.7 Adult failure to thrive; Z66 Do not resuscitate; E03.9 Hypothyroidism, unspecified; F03.90 Unspecified dementia, unspecified severity, without behavioral disturbance, psychotic disturbance, mood disturbance, and anxiety; E78.00 Pure hypercholesterolemia, unspecified; F41.9 Anxiety disorder, unspecified; G89.29 Other chronic pain; R74.01 Elevation of levels of liver transaminase levels; E87.6 Hypokalemia; G40.909 Epilepsy, unspecified, not intractable, without status epilepticus; E83.39 Other disorders of phosphorus metabolism; I12.9 Hypertensive chronic kidney disease with stage 1 through stage 4 chronic kidney disease, or unspecified chronic kidney disease; N18.30 Chronic kidney disease, stage 3 unspecified; E78.5 Hyperlipidemia, unspecified; E86.0 Dehydration; Z88.5 Allergy status to narcotic agent; Z79.82 Long term (current) use of aspirin; Z79.899 Other long term (current) drug therapy; Z88.8 Allergy status to other drugs, medicaments and biological substances; Z51.5 Encounter for palliative care; Z89.512 Acquired absence of left leg below knee; Z68.1 Body mass index [BMI] 19.9 or less, adult
CPT/HCPCS: 36415; 36600; 70450; 71045; 74176; 76700; 78226; 80048; 80053; 80061; 80305; 81001; 82140; 82272; 82550; 82803; 82948; 83540; 83550; 83605; 83690; 83735; 83880; 83930; 84100; 84134; 84145; 84439; 84443; 84478; 84484; 85018; 85025; 85651; 86140; 87040; 87081; 92508; 93005; 93308; 97164; 97530; 99285; A4215; A4618; A5200; A6212; A6213; A6258; A6449; A7000; A9537; C1726; C1758; C1769; G0378; J0131; J0360; J0461; J0690; J0744; J0780; J1100; J1171; J1200; J1610; J1630; J1644; J1815; J1940; J2003; J2060; J2250; J2405; J2704; J3010; J3360; J3480; J3486; J3490; J7030; J7040; J7060; J7070; J7120; P9045; Q9967